=== PATIENT | female | born 1945 | race Caucasian/White ===

== ENCOUNTER 2023-09-10 17:20 | Inpatient (IN) | payer MEDICARE, OTHER, SELFPAY ==
[2023-09-10] VITALS (12 sets, daily range): BP systolic 119–168; BP diastolic 62–95; BMI 28.9; BMI 28.6
[2023-09-10 14:49] LABS: % Basophils 0.4 % (0-2); % Eosinophils 0.4 % (0-6); % Immature Granulocytes 0.3 % (0-0.5); % Lymphocytes 17.1 % (20.5-51.1); % Monocytes 4.8 % (1.7-9.3); Absolute Lymphocytes 1.3 10^3/uL (1.2-3.4); Absolute Monocytes 0.4 10^3/uL (0.1-0.6); Hematocrit 35.8 % (37.0-47.0); Hemoglobin 11.3 g/dL (12.0-16.0); Mean Corp Hgb Conc. 31.6 g/dL (33.0-37.0); Mean Corpuscular Volume 63.5 fL (81.0-99.0); Mean Platelet Volume 10.8 fL (7.4-10.4); Nucleated Red Blood Cells % 0 %; Platelet Count 260 10^3/uL (130-400); Red Blood Cell Count 5.64 10^6/uL (4.20-5.40); Red Cell Dist. Width 17.4 % (11.5-14.5); White Blood Cell Count 7.7 10^3/uL (4.8-10.8)
--- NOTE | 2023-09-10 14:51 | ED.GENMED ---
History of Present Illness
General
Chief Complaint: Cardiac Symptoms
Source: patient
Exam Limitations: none
Time Seen by Provider: 09/10/23 14:26
Travel History
Have you had any contact with someone who has COVID-19?: No
Do you have any symptoms of coronavirus? Fever > 100 degrees, chills, cough, shortness of breath, sore throat, loss of taste or smell, muscle aches, or headache?: No
History of Present Illness
History of Present Illness:
78-year-old female seen by her cardiac group this morning. Echocardiogram was done apparently for history of atrial fibrillation. Ultrasound showed a intracardiac tumor patient was sent to the ER for admission and further care. Patient has no
complaints
Past History
Past History
ED Past Medical History: HTN and Hypercholesterolemia
ED Past Surgical History: None
Social History
Tobacco: Non-smoker
Personal:
Living: with family
Review of Systems
Review of Systems
All Other Systems: Not applicable
Respiratory: Reports no symptoms
Cardiac: Reports no symptoms
Phy Exam
Physical Exam
Physical Exam:
GENERAL: Alert and oriented in no apparent distress
EYE: Orbits normal.
NECK: Supple, no significant adenopathy.
ENT: Pharynx without erythema
CARDIAC: Regular rate and rhythm without any obvious murmurs.
LUNGS: Clear breath sounds,normal
ABDOMEN: Soft, without focal tenderness or distention
NEUROLOGICAL: Alert and oriented , grossly non-focal
SKIN: Warm and dry, no rash or lesion, no discoloration, skin intact.
MUSCULOSKELETAL: No edema,no deformity.Good color
PSYCH: Normal and appropriate interaction.
Course
Orders/Labs/Results
Orders:
Orders
09/10/23 14:37
IV Insert/Care/Rem.- Treatment PRN
09/10/23 14:38
Electrocardiogram (*1) Stat
Reason for Study: Other
Other Reason for Exam: chest pain
Cardiac Monitoring- Treatment ONCE
EKG- Treatment ONCE
09/10/23 14:41
Basic Metabolic Panel Urgent
Complete Blood Count/With Diff Urgent
Glycohemoglobin (HgbA1c) Urgent
Prothrombin Time Urgent
Total Bilirubin Urgent
Comment: A1C & TOTAL BILI ADDED ON BY FLOOR 4:30PM 09-10-23
09/10/23 15:48
Cardiothoracic Surgery Consult Routine
Consulting Provider: Juan Francisco Kaufman
Was physician already notified: Yes
Reason for Consult: intracardiac tumor
09/10/23 15:49
CARDIOLOGY CONSULT Routine
Consulting Provider: Jared Seay
Was physician already notified: Yes
Reason for consult: intracardiac tumor
09/10/23 16:02
Heparin Protocol- PTT Orders As Directed
PTT per Heparin protocol: -Obtain CBC and baseline PTT - if not already collected.
-Obtain PTT 6 hours from start of infusion. Then, every 6 hours until 2 consecutive
PTT's are therapeutic. Then, PTT Daily.
-With each rate change, obtain PTT every 6 hours until 2 consecutive PTT's are
therapeutic. Then, PTT Daily.
Notify MD As Directed
Notify physician if: PTT is greater than or equal to 200.
09/10/23 16:11
PTT Urgent
Comment: Obtain baseline before beginning heparin infusion if not already collected
Heparin Protocol- PTT Orders As Directed
PTT per Heparin protocol: -Obtain CBC and baseline PTT - if not already collected.
-Obtain PTT 6 hours from start of infusion. Then, every 6 hours until 2 consecutive
PTT's are therapeutic. Then, PTT Daily.
-With each rate change, obtain PTT every 6 hours until 2 consecutive PTT's are
therapeutic. Then, PTT Daily.
Notify MD As Directed
Notify physician if: PTT is greater than or equal to 200.
09/10/23 16:16
Heparin 4,000 units IV NOW STA
09/10/23 16:18
Admit/Transfer Patient As Directed
Co-Sign Provider:
Level of Care: Inpatient admission
Assign to:: IVU
Physician / Group: Naomie
Diagnosis: intracardiac tumor
Reason for Hospitalization: Essential hypertension
Hyperlipidemia
Expected length of stay greater than two midnights?: Yes
ELOS- Estimated Length of Stay in days: 6
I certify the patient meets the requirements for IP care: Yes
Complete Blood Count/No Diff Urgent
Comment: Obtain baseline before beginning heparin infusion if not already collected
PTT Urgent
Comment: Obtain baseline before beginning heparin infusion if not already collected
09/10/23 16:19
Code Status As Directed
Resuscitation Status: Full Code
09/10/23 16:30
Heparin 14855 Units/250 ml 25,000 units in 250 ml IV PER PROTOCOL
Weight to be used for heparin protocol in kilograms (kg):: 76.204
Protocol:: Cardiac Tx/Acute Coronary
PTT Goal Range to be used:: PTT 73 to 111 seconds
Order type:: Initial
INITIAL Infusion Dose (UNITS/KG/hr) & then follow protocol:: 12 units/kg/hr
Infusion Dose in UNITS/hr & then follow protocol (UNITS/hr):: 900
INFUSION RATE in mL/hr & then follow protocol (mL/hr):: 9
PTT less than or equal to 64 seconds:: Increase rate by 200 units/hr (+ 2 mL/hr)
PTT 64.1 to 72.9 seconds:: Increase rate by 100 units/hr (+ 1 mL/hr)
PTT 73 to 111 seconds:: Target Range. No change in rate.
PTT 111.1 to 130.9 seconds:: Decrease rate by 100 units/hr (- 1 mL/hr)
PTT 131 to 199.9 seconds:: HOLD for 1 hr. Then decrease rate by 200 units/hr (- 2 mL/hr)
PTT greater than or equal to 200 seconds:: HOLD for 2 hrs & Notify Provider. Then decrease by 200 units/hr (-
2 mL/hr)
Lab follow-up:: Each change, PTT q6h until 2 consecutive are therapeutic. Then PTT
daily.
09/10/23 16:36
Add On- LAB Urgent
Tests Added?: total bilirubin
09/10/23 16:37
Add On- LAB Urgent
Tests Added?: A1C
09/10/23 17:08
Blood Pressure Bilateral Upper Extremities As Directed
Instructions:: If not already done obtain and record bilateral upper extremity bp.
Notify physician/PA/CHEMICAL PUMPER:: notify cardiac surgery PA, CHEMICAL PUMPER, or MD of a 20 mmHg or greater different.
Blood Pressure LEFT Upper Extremity ONCE
Blood Pressure RIGHT Upper Extremity ONCE
Rx Incentive Spirometry [RESP] Routine
Frequency: q1h while awake
Comment: instruction and assessment for postop 10 times x q1hr
US Cerebrovascular Routine
Comment:
Reason For Exam: pre-operative cardiothoracic surgery
09/10/23 17:09
PX Panelipse Routine
Comment:
Reason For Exam: preop cardiac surgery
Pft Spirometry At Bedside [RESP] Routine
Special Instructions: pre-operative cardiothoracic surgery
09/10/23 19:16
Bisacodyl [Dulcolax] 10 mg RECTAL [id number] PRN
Dextrose 5%/0.45%Sodchl 1000ML [D5/0.45%NaCl] 1,000 ml IV 75 mls/hr
Docusate W/Senna [Senokot-S] 1 tablet PO BIDPRN PRN
Polyethylene Glycol Powder [Miralax] 17 grams PO DAILYPRN PRN
09/10/23 19:16
Activity As Directed
Activity Level: With Assistance
Vital Signs As Directed
Frequency: Per unit guidelines
09/10/23 20:00
Vit C/Vit E/[place]in/Min/[place]-3 [Ocuvite Softgel] 1 cap PO BID
09/10/23 22:00
Atorvastatin [Lipitor] 20 mg PO HS
09/10/23 22:30
PTT Urgent
09/11/23 Breakfast
NPO
Allow oral meds: Yes
Allow clear liquids: No
Basic Metabolic Panel IN AM
Complete Blood Count/No Diff IN AM
09/11/23 08:00
Cholecalciferol (Vitamin D3) [VITAMIN D3 (cholecalciferol)] 25 mcg PO DAILY
09/12/23 06:00
Complete Blood Count/No Diff Q2D
Comment: Notify MD if platelet count is <130,000 or decreases by 50% from baseline
09/14/23 06:00
Complete Blood Count/No Diff Q2D
Comment: Notify MD if platelet count is <130,000 or decreases by 50% from baseline
09/16/23 06:00
Complete Blood Count/No Diff Q2D
Comment: Notify MD if platelet count is <130,000 or decreases by 50% from baseline
09/18/23 06:00
Complete Blood Count/No Diff Q2D
Comment: Notify MD if platelet count is <130,000 or decreases by 50% from baseline
09/20/23 06:00
Complete Blood Count/No Diff Q2D
Comment: Notify MD if platelet count is <130,000 or decreases by 50% from baseline
09/22/23 06:00
Complete Blood Count/No Diff Q2D
Comment: Notify MD if platelet count is <130,000 or decreases by 50% from baseline
09/24/23 06:00
Complete Blood Count/No Diff Q2D
Comment: Notify MD if platelet count is <130,000 or decreases by 50% from baseline
09/26/23 06:00
Complete Blood Count/No Diff Q2D
Comment: Notify MD if platelet count is <130,000 or decreases by 50% from baseline
Abnormal Lab Results
09/10/23 09/10/23
14:41 16:18
RBC 5.64 H 10^6/uL
(4.20-5.40)
Hgb 11.3 L g/dL 10.7 L g/dL
(12.0-16.0) (12.0-16.0)
Hct 35.8 L % 33.3 L %
(37.0-47.0) (37.0-47.0)
MCV 63.5 L fL 62.4 L fL
(81.0-99.0) (81.0-99.0)
MCH 20.0 L pg 20.0 L pg
(27.0-31.0) (27.0-31.0)
MCHC 31.6 L g/dL 32.1 L g/dL
(33.0-37.0) (33.0-37.0)
RDW 17.4 H % 16.7 H %
(11.5-14.5) (11.5-14.5)
MPV 10.8 H fL 10.5 H fL
(7.4-10.4) (7.4-10.4)
Neutrophils % 77.0 H %
(42.2-75.2)
Lymphocytes % 17.1 L %
(20.5-51.1)
BUN 19 H mg/dl
(7-17)
Glucose 119 H mg/dl
(70-99)
09/10/23 16:18
09/10/23 14:41
Vital Signs
Initial and Last Documented VS:
Initial Vital Signs
Temp Pulse Resp BP Pulse Ox
99.0 F 78 18 168/95 96
09/10/23 12:11 09/10/23 12:11 09/10/23 12:11 09/10/23 12:11 09/10/23 12:11
Last Documented Vital Signs
Temp Pulse Resp BP Pulse Ox
98.5 F 99 18 129/79 95
09/10/23 14:43 09/10/23 18:24 09/10/23 18:24 09/10/23 18:00 09/10/23 18:24
*Pulse Oximetry
Patient hypoxic: no
*EKG
Interpreted by ED Provider?: Yes
Interpretation: normal
Comparison EKG: no changes
Heart Rate: 78
Rate: normal
Rhythm: sinus
[place]: normal axis
Interval: normal interval
QRS Pattern: normal QRS
Ischemia: no ischemia
*Galvanometer Assembler Interpretation
Rate: normal
Interpretation: normal
Heart Rate: 80
Rhythm: sinus
*Critical Care Note
Total Time (30-74mins, 75-104mins- exclusive of procedures): Not Applicable
Data Reviewed
Review of Other/Old Records Reveals: Labs and Testing
Update Note
Update Note:
Discussed with cardiology. Patient will be admitted for further evaluation and care
ED Attending Note
-
Portions of this chart may have been created with voice recognition software.� Occasional wrong word or��sound alike� substitutions may have occurred due to the inherent limitations of voice recognition software.
Discharge Plan
Departure
Patient Disposition: Admit
Date of Disposition: 09/10/23
Time of Disposition: 14:53
Presentation/result/management discussed w/ accepting MD/DO: Cardiology
Discharge Problem:
Atrial myxoma
Interventions
Interventions:
*Risk Screen - Suicide Last Done: 09/10/23 14:43
*General Assessment Last Done: 09/10/23 14:43
*Neglect/Abuse Screening Last Done: 09/10/23 14:43
ED- Fall Risk Assessment Last Done: 09/10/23 14:43
*ED COVID-19 Vaccine History Last Done: 09/10/23 14:43
ED- Pulmonary Assessment Last Done: 09/10/23 14:43
ED- Cardiac Assessment Last Done: 09/10/23 14:43
[2023-09-10 15:04] LABS: INR 1.12; PT 14.2 Sec (11.4-14.6)
[2023-09-10 15:32] LABS: Blood Urea Nitrogen 19 mg/dl (7-17); Calcium 9.8 mg/dl (8.4-10.2); Carbon Dioxide 29 mmol/L (22-30); Chloride 101 mmol/L (98-107); Estimated Creatinine Clearance 64 ml/min; Glucose 119 mg/dl (70-99); Potassium 4.2 mmol/L (3.5-5.1); Sodium 138 mmol/L (135-145); eGFR > 60.00
--- NOTE | 2023-09-10 15:40 | CON.CAR ---
Addendum entered and electronically signed by Jared Seay MD 09/10/23 17:11:
I saw and examined the patient.
The FURS SALESPERSON or PA's note was reviewed and I agree with the note.
Comment: General: Well developed, well nourished in NAD.
Neck: Supple, no JVD, HJR, carotids +2 B/L, no bruits bilaterally.
Heart: Non displaced PMI, RRR, no murmurs, No S3, S4, no rubs.
Lungs: Clear to auscultation bilaterally, no wheeze, rhonchi, rubs bilaterally,
normal expiratory phase.
Abdomen: Normal bowel sounds, soft, non-tender, non-distended.
Extremities: No clubbing, cyanosis or edema bilaterally.
Neuro: Grossly nonfocal, awake, alert and oriented x3.
Astrid has a history of hypertension, hyperlipidemia, atrial tachycardia. She initially had influenza in April 2023 with cough and shortness of breath. She had SVT was converted to sinus rhythm. Outpatient echocardiogram on 09/10/2023
revealed a 4.0 x 4.5 cm left atrial mass consistent with myxoma. She was sent to the ER. She has a dyspnea on exertion with climbing stairs.
She will be admitted and started on IV heparin. CT surgery evaluation for likely myxoma resection. Will likely need cardiac catheterization prior to surgery and we will tentatively plan for 5/29 am
Original Note:
Consultation
Consultation Request
Date/Time Consultation Requested: 09/10/2023
Date/Time Consultation Performed: 09/10/2023
Requesting Provider: Dr. Manjarrez
Performing Provider: Angie Ugalde PA-C for Dr. Jared Seay
Reason for Consultation: Left atrial myxoma/cardiac mass
Medical History
-
History of Present Illness:
Patient is an 78-year-old female with past medical history significant for hypertension, hyperlipidemia,SVT/atrial tachycardia, lumbar disc disease, macular degeneration who presents to emergency department 09/10/2023 after she was found to have left
atrial appendage mass on outpatient echocardiogram 09/10/2023. Patient was initially seen in ED in April 2023 with cough, shortness of breath and was positive for influenza. She was noted to have SVT on EKG and spontaneously converted to sinus
rhythm. She was seen by outpatient cardiology in July 2023 and were a monitor which was completed 08/13/2023 which showed predominantly normal sinus rhythm with episodes of atrial tachycardia longest 2.8 minutes as well as occasional PACs
approximately 4% and rare PVCs. 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 Given these findings she was referred to emergency department for
evaluation. Patient reports she has dyspnea on exertion with activities such as walking up stairs. She denies having palpitations fast or irregular heartbeats, chest pain, shortness of breath at rest, orthopnea, PND, edema.
Past medical history:
Hypertension
Hyperlipidemia
Atrial tachycardia
PACs
Macular degeneration
Lumbar disc disease
Past Medical History
Past Medical History: Other (See HPI)
Past Surgical History: Other (Cataract extractions, hernia repair)
Social History
Tobacco: Non-Smoker
Alcohol: Occasional (2 rare)
Drug: None
Personal:
Living: With Family (Daughter and son-in-law)
Employment: Retired
Family History
Family History: Cancer (Mother liver cancer)
Allergies / Home Medications
Allergy/AdvReac Type Severity Reaction Status Date / Time
cephalexin monohydrate Allergy Unknown Unknown Verified 09/10/23 12:12
[From Keflex]
Sulfa (Sulfonamide Allergy Unknown Unknown Verified 09/10/23 12:12
Antibiotics)
�Medication �Instructions �Recorded �Confirmed �Type
bisoprolol 2.5 1 tab PO DAILY 09/10/23 09/10/23 History
mg-hydrochlorothiazide 6.25 mg
tablet
cholecalciferol (vitamin D3) 25 25 mcg PO DAILY 09/10/23 09/10/23 History
mcg (1,000 unit) tablet (Vitamin
D3)
simvastatin 40 mg tablet (Zocor) 40 mg PO HS 09/10/23 09/10/23 History
vitamins A,C,I-vhne-gkjued 2,148 1 tab PO BID 09/10/23 09/10/23 History
mcg-113 mg-45 mg-17.4 mg tablet
(PreserVision AREDS)
Review of Systems
-
History Source: Patient
All other systems: Negative unless noted
Physical Exam
Vital Signs
Temp Pulse Resp BP Pulse Ox
98.5 F 70 17 135/74 97
09/10/23 14:43 09/10/23 15:00 09/10/23 15:00 09/10/23 15:00 09/10/23 14:45
GEN: No distress, awake, Ox3
HEENT: supple, anicteric, mmm
LUNGS: CTA, no wheezes/rales
CV: Reg, S1/S2, no murmur, rub or gallop
ABD: soft, BS+, NT/ND
EXT: No edema, clubbing or cyanosis
NEURO: Gross non-focal
SKIN: No rash, warm, dry, pink
Lab Results
09/10/23 14:41
09/10/23 14:41
Impression / Plan
-
PCP: Virginia Barajas
Seamer: Dr. Sevilla
Impression:
Presents 09/10/2023 with new finding of left atrial mass
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
Hypertension
Hyperlipidemia
Atrial tachycardia
PACs
Macular degeneration
Lumbar disc disease
Echo 09/10/2023: EF 60% with mild concentric LVH. 4.0 x 4.5 cm left atrial mass most consistent with myxoma
Outpatient rn cardiac rehab completed 08/13/2023: Predominantly sinus rhythm. 1162 episodes of atrial tachycardia, longest 2.8 minutes. Junctional escape beats, PAC ~4%, PVC 0.3%.
Plan:
-Presents 09/10/2023 with finding of left atrial mass consistent with myxoma on echocardiogram
-Start IV heparin drip to reduce risk of embolic event
-CT surgery consultation for surgical removal
-Will need left heart catheterization, keep NPO after midnight for cath 09/11/23
-Consider imaging of chest/abd/pelvis
-History of hypertension continue Bisoprolol/HCTZ
-Hyperlipidemia: continue statin
-Check TSH w/ reflex T4
Plan was discussed with patient and her daughter, Daisy who is at bedside
HPI 09/10/2023:
Patient is an 78-year-old female with past medical history significant for hypertension, hyperlipidemia,SVT/atrial tachycardia, lumbar disc disease, macular degeneration who presents to emergency department 09/10/2023 after she was found to have left
atrial appendage mass on outpatient echocardiogram 09/10/2023. Patient was initially seen in ED in April 2023 with cough, shortness of breath and was positive for influenza. She was noted to have SVT on EKG and spontaneously converted to sinus
rhythm. She was seen by outpatient cardiology in July 2023 and were a monitor which was completed 08/13/2023 which showed predominantly normal sinus rhythm with episodes of atrial tachycardia longest 2.8 minutes as well as occasional PACs
approximately 4% and rare PVCs. 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 Given these findings she was referred to emergency department for
evaluation. Patient reports she has dyspnea on exertion with activities such as walking up stairs. She denies having palpitations fast or irregular heartbeats, chest pain, shortness of breath at rest, orthopnea, PND, edema.
Data Reviewed
-
EKG: Report Reviewed by me, Discussed with Physician, Discussed with Patient and Discussed with Family
Medical Tests (Nuc Med, Echo etc): Report Reviewed by me, Discussed with Physician, Discussed with Patient and Discussed with Family
Labs: Discussed with Physician
--- NOTE | 2023-09-10 15:51 | HPS.HSE ---
Family Physician
-
Family Physician: Virginia Barajas
Chief Complaint
-
Intracardiac tumor
History of Present Illness
78 y/o F with PMHx:
Essential hypertension
Hyperlipidemia
who presents from [facility] office for admission for intracardiac tumor. The patient had flu over the winter. At that time it was thought that she might of had atrial fibrillation. She recently had an event monitor showing atrial tachycardia. She was
seen in the outpatient setting today ([facility] office) and had a bedside echocardiogram showing an intracardiac tumor. She was sent to the ER for admission for heparin drip and CT surgery evaluation. She is patient has no acute complaints. Denies
chest pain, shortness of breath palpitations, nausea, vomiting, diarrhea, abdominal pain, headache, visual symptoms, neck stiffness, rash, dysuria, focal neurological deficit.
Medical History
Past Medical History
Past Medical History: Reports Other (as per HPI)
Past Surgical History: Reports Other (N/A)
Social History
Tobacco: Non-smoker
Alcohol: None
Drug: None
Family History
Family History: Not pertinent
Allergies / Home Medications
Allergies reflects when Allergies were last updated in [facility].
Home Medications with original date entered in [facility]
Allergy/Medication List:
Allergies
Allergy/AdvReac Type Severity Reaction Status Date / Time
cephalexin monohydrate Allergy Unknown Unknown Verified 09/10/23 12:12
[From Keflex]
Sulfa (Sulfonamide Allergy Unknown Unknown Verified 09/10/23 12:12
Antibiotics)
Home Medications
bisoprolol 2.5 mg-hydrochlorothiazide 6.25 mg tablet 1 tab PO DAILY 09/10/23
cholecalciferol (vitamin D3) 25 mcg (1,000 unit) tablet (Vitamin D3) 25 mcg PO DAILY 09/10/23
simvastatin 40 mg tablet (Zocor) 40 mg PO HS 09/10/23
vitamins A,C,X-vlgz-vuzbkb 2,148 mcg-113 mg-45 mg-17.4 mg tablet (PreserVision AREDS) 1 tab PO BID 09/10/23
Review of Systems
-
History Source: Patient
A 12 point ROS was completed and negative except as noted: Yes
Physical Exam
Vital Signs
Vital Signs
Temp Pulse Resp BP Pulse Ox
98.5 F 70 17 135/74 97
09/10/23 14:43 09/10/23 15:00 09/10/23 15:00 09/10/23 15:00 09/10/23 14:45
Physical Exam
General: Other (.)
Laboratory Results
-
09/10/23 14:41
09/10/23 14:41
Laboratory Results
PT 14.2 Sec (11.4-14.6) 09/10/23 14:41
INR 1.12 09/10/23 14:41
Impression/Plan
-
Gen: NAD, AAOx3.
Eyes: EOMI, PERRLA, no scleral icterus.
Neck: supple.
CV: RRR, +S1/S2, no m/r/g.
Resp: CTAB, no rales, wheezes, or rhonchi.
Abd: +BS, soft, NT, ND
Skin: No rashes.
Neuro: CN 2-12 intact, non-focal.
Psych: Normal mood and affect.
ECG (read by me): NSR @ 78, nl axis, normal MA/QRS intervals, QTc slightly prolonged at 453ms, no acute ST/TW changes
Intracardiac tumor:
-pt sent from [facility] cards for admission
-heparin gtt
-echo
-cards to see
-CT surgery eval
Other problems:
Essential hypertension: Cont Bisoprolol/HCTZ
Hyperlipidemia: cont statin
FULL/heparin gtt
[2023-09-10] MEDS: HEPARIN 4000 UNITS IV (16:27)
[2023-09-10 16:29] LABS: Hematocrit 33.3 % (37.0-47.0); Hemoglobin 10.7 g/dL (12.0-16.0); Mean Corp Hgb Conc. 32.1 g/dL (33.0-37.0); Mean Corpuscular Volume 62.4 fL (81.0-99.0); Mean Platelet Volume 10.5 fL (7.4-10.4); Platelet Count 244 10^3/uL (130-400); Red Blood Cell Count 5.34 10^6/uL (4.20-5.40); Red Cell Dist. Width 16.7 % (11.5-14.5); White Blood Cell Count 7.5 10^3/uL (4.8-10.8)
[2023-09-10] MEDS: HEPARIN 25000 UNITS/250 ML IV (16:30)
[2023-09-10 16:39] LABS: APTT 32.5 Sec (23.4-35.0)
--- NOTE | 2023-09-10 16:43 | CONSULT.CT ---
Consultation
-
Date/Time Consultation Requested: 09/10/2023
Date/Time Consultation Performed: 09/10/2023
Requesting Provider: Dr. Casey Burgos
Performing Provider: Lara george
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
Patient History
Physicians
Family Physician: Dr. Virginia Barajas
Outpatient Nail Setter: Dr. Sevilla
Inpatient Nail Setter: Dr. Seay
History of Present Illness
Patient is a 78-year-old female with past medical history significant for hypertension, hyperlipidemia, SVT/atrial tachycardia, lumbar disc disease, macular degeneration who presents to the emergency department on 09/10/2023 after she was found to
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
Patient was initially seen in the ED in April 2023 with cough, shortness of breath and was positive for influenza. On telemetry she was noted to have SVT on EKG and spontaneously converted to sinus rhythm. She was seen by outpatient cardiology
in July 2023 and a Holter monitor was placed which was completed on 08/13/2023. This showed predominantly normal sinus rhythm with episodes of atrial tachycardia. Holter monitor also showed occasional PACs and rare PVCs. She underwent outpatient
echo today 09/10/2023 and was noted to have a 4.0 x 4.5 cm left atrial mass most consistent with left atrial myxoma. Given these findings she was referred to the emergency department for evaluation.
Patient reports she has a shortness of breath on exertion with activity such as walking upstairs. She denies any palpitations fast or irregular heartbeats, chest pain, shortness of breath at rest, orthopnea, PND or lower extremity edema.
Past Medical History
Past Medical History: Atrial Fib, BARRON, HTN, Hypercholesterolemia and SOB
Past medical history significant for hypertension
Hyperlipidemia
Atrial tachycardia/SVT
PACs/PVCs
Wet age-related macular degeneration
Lumbar disc disease
Osteoarthritis
Past Surgical History
Past surgical history: Hernia surgery, bilateral cataracts
Dental History
Has routine yearly cleaning, no dental issues currently
Family History
Mother: at Age (Mother at age 63 from cancer)
Father: at Age (Father at age 88 'natural causes')
Family Medical History: Cancer and Hypertension
Social History
Alcohol: None
Drug: None
Tobacco: Non-Smoker
Personal: ( of a heart attack in his late 50s)
Living: With Family (Lives with daughter and son-in-law)
Employment: Retired
Covid Vaccination History:
Denies history of COVID infection
Admits to COVID vaccine plus booster
Allergies
Allergy/AdvReac Type Severity Reaction Status Date / Time
cephalexin monohydrate Allergy Unknown Unknown Verified 09/10/23 12:12
[From Keflex]
Sulfa (Sulfonamide Allergy Unknown Unknown Verified 09/10/23 12:12
Antibiotics)
Home Medications
�Medication �Instructions �Recorded �Confirmed �Type
bisoprolol 2.5 1 tab PO DAILY 09/10/23 09/10/23 History
mg-hydrochlorothiazide 6.25 mg
tablet
cholecalciferol (vitamin D3) 25 25 mcg PO DAILY 09/10/23 09/10/23 History
mcg (1,000 unit) tablet (Vitamin
D3)
simvastatin 40 mg tablet (Zocor) 40 mg PO HS 09/10/23 09/10/23 History
vitamins A,C,P-lodi-dryxqe 2,148 1 tab PO BID 09/10/23 09/10/23 History
mcg-113 mg-45 mg-17.4 mg tablet
(PreserVision AREDS)
Review of Systems
-
History Source: Patient and Family
General: Reports Fatigue
HEENT: Reports Visual Changes
Respiratory: Reports SOB and BARRON
Cardiac: Reports No Symptoms
Abdomen/GI: Reports No Symptoms
: Reports No Symptoms
Musculoskeletal: Reports Arthralgias and Joint Pain
Skin: Reports No Symptoms
Neurological: Reports No Symptoms
Vascular: Reports Other (Occasional cramps in calfs after sitting, denies calf pain with ambulation)
Physical Exam
Vital Signs
Temp 98.5 F 09/10/23 14:43
Temp route: Oral 09/10/23 14:43
Pulse 76 09/10/23 16:30
Resp Rate 21 09/10/23 16:30
Blood pressure 137/74 09/10/23 16:00
Blood pressure extremity used: Right upper arm 09/10/23 14:43
Position: Lying 09/10/23 14:43
MAP (cuff-Kirill Monitor) 93 09/10/23 16:00
MAP 98 09/10/23 14:43
SaO2 94 09/10/23 16:15
Oxygen Mode of Delivery Room air 09/10/23 14:43
Actual Weight 168 lb 09/10/23 14:43
Body Mass Index (BMI) 28.9 09/10/23 14:43
Labs
09/10/23 16:18
09/10/23 14:41
PT 14.2 Sec (11.4-14.6) 09/10/23 14:41
APTT 32.5 Sec (23.4-35.0) 09/10/23 16:18
Exam
General: Well Developed, Well Nourished, No Apparent Distress and Comfortable
HEENT: Normocephalic, Anicteric and Atraumatic
Neck: Trachea Midline
Respiratory: Clear
Cardiac: Regular Rhythm
GI: Soft, Non Tender, Non Distended and Normal Bowel Sounds
Rectal: Deferred by Provider
Skin: Warm and Dry
Neuro: Awake, Alert, Oriented and AO x 3
Extremities: Pulses (Distal pulses intact bilaterally, posterior tibial pulses +2 bilaterally, right dorsalis pedis pulse +1, left dorsalis pedis pulse +2, toes on right foot cool versus left, no calf tenderness bilaterally)
Lymph: No Lymphadenopathy
Psych: Calm
Assessment / Plan
-
Assessment:
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
History of SVT/atrial tachycardia
Hypertension
Hyperlipidemia
Lumbar disc disease
Wet age-related macular degeneration
Alopecia Areata
Varicose veins
Microcytic anemia
Plan:
All studies to be reviewed by attending cardiothoracic surgeon and surgical plan and timing will be discussed with patient and family
Cardiac catheterization scheduled for tomorrow
Preoperative diagnostic studies ordered
Continue IV heparin
CAT scan of chest abdomen pelvis
[2023-09-10] MEDS: D5/0.45%NACL 1000 IV (20:48)
[2023-09-10] MEDS: OCUVITE SOFTGEL 1 CAP PO (20:49)
[2023-09-10] MEDS: LIPITOR 20 MG PO (20:51)
--- NOTE | 2023-09-10 21:30 | PTCARENOTE ---
Received pt from ED. Oriented pt to unit. AOx3. Tele- SR. Heparin gtt infusing at 900ml/hr. Pt aware that she is NPO after midnight for cath tomorrow. Daughter at bedside. Currently in bed; call devonte w/in reach.
[2023-09-10 23:12] LABS: APTT 68.3 Sec (23.4-35.0)
[2023-09-11] VITALS (13 sets, daily range): BP systolic 104–148; BP diastolic 69–83
[2023-09-11 05:45] LABS: Hematocrit 32.2 % (37.0-47.0); Hemoglobin 10.5 g/dL (12.0-16.0); Mean Corp Hgb Conc. 32.6 g/dL (33.0-37.0); Mean Corpuscular Hgb 20.3 pg (27.0-31.0); Mean Corpuscular Volume 62.4 fL (81.0-99.0); Mean Platelet Volume 10.7 fL (7.4-10.4); Platelet Count 232 10^3/uL (130-400); Red Blood Cell Count 5.16 10^6/uL (4.20-5.40); Red Cell Dist. Width 16.4 % (11.5-14.5); White Blood Cell Count 6.9 10^3/uL (4.8-10.8)
[2023-09-11 05:46] LABS: APTT 56.1 Sec (23.4-35.0)
[2023-09-11 05:54] LABS: Blood Urea Nitrogen 16 mg/dl (7-17); Calcium 9.3 mg/dl (8.4-10.2); Carbon Dioxide 28 mmol/L (22-30); Chloride 103 mmol/L (98-107); Estimated Creatinine Clearance 74 ml/min; Glucose 116 mg/dl (70-99); Potassium 3.8 mmol/L (3.5-5.1); Sodium 138 mmol/L (135-145); eGFR > 60.00
--- NOTE | 2023-09-11 08:15 | W.PN.HOSP.TC ---
Today's Communication/Plan
-
see bold
Assessment / Plan
Assessment / Plan
Gen: NAD, AAOx3.
Eyes: EOMI, PERRLA, no scleral icterus.
Neck: supple.
CV: RRR, +S1/S2, no m/r/g.
Resp: CTAB, no rales, wheezes, or rhonchi.
Abd: +BS, soft, NT, ND
Skin: No rashes.
Neuro: CN 2-12 intact, non-focal.
Psych: Normal mood and affect.
ECG (read by me): NSR @ 78, nl axis, normal RI/QRS intervals, QTc slightly prolonged at 453ms, no acute ST/TW changes
Echo:
1. 4.0 x 4.5 cm left atrial mass, most consistent with myxoma. No clear-cut evidence of mitral annular obstruction.
2. Mild left ventricular hypertrophy with preserved systolic function, EF 60%
3. Mildly thickened mitral valve with trace mitral regurgitation, increased A wave velocity
4. Mildly sclerotic aortic valve with trace aortic regurgitation
5. Normal right heart with normal pulmonary artery pressure
Intracardiac tumor:
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
-echo above
-cont heparin gtt
-cards/CT surgery following
-cath today
Other problems:
Essential hypertension: Cont Bisoprolol/HCTZ
Hyperlipidemia: cont statin
FULL/heparin gtt
Anticipated Discharge: > 48 hours
Subjective/Interval History
-
Date of Service: September 11, 2023
Denies CP/SOB.
Objective Data
-
Labs:
Laboratory Results
09/10/23 09/10/23 09/11/23
16:11 22:49 05:16
WBC 6.9
Hgb 10.5 L
Hct 32.2 L
Plt Count 232
APTT Cancelled 68.3 H 56.1 H
Sodium 138
Potassium 3.8
Chloride 103
Carbon Dioxide 28
BUN 16
Creatinine 0.6
Glucose 116 H
Calcium 9.3
09/11/23
12:00
WBC
Hgb
Hct
Plt Count
APTT Pending
Sodium
Potassium
Chloride
Carbon Dioxide
BUN
Creatinine
Glucose
Calcium
Vital Signs:
Vital Signs
Temp Pulse Resp BP Pulse Ox
98.4 F 86 20 104/81 94
09/11/23 07:24 09/11/23 05:30 09/11/23 07:24 09/11/23 05:10 09/11/23 07:24
I&O
09/10/23 09/11/23 09/12/23
06:59 06:59 06:59
Intake Total 1527 / 1527
Balance 1527 / 1527
[2023-09-11] MEDS: ZEBETA 2.5 MG PO (08:24)
[2023-09-11] MEDS: OCUVITE SOFTGEL 1 CAP PO ×2 (08:24→20:03)
[2023-09-11] MEDS: ORETIC 6.25 MG PO (08:27)
[2023-09-11] MEDS: VITAMIN D3 (cholecalciferol) 25 MCG PO (08:28)
[2023-09-11] MEDS: LOW STRENGTH ASPIRIN 324 MG PO (08:28)
[2023-09-11 09:34] LABS: Glycohemoglobin (HgbA1c) 5.4 % (4.0-5.6)
[2023-09-11 10:36] LABS: ALT (SGPT) 18 U/L (0-35); AST (SGOT) 39 U/L (14-36); Albumin 3.6 g/dl (3.5-5.0); Alkaline Phosphatase 64 U/L (38-126); Direct Bilirubin 0.3 mg/dl (0.0-0.4); Total Bilirubin 1.1 mg/dl (0.2-1.3); Total Protein 6.4 g/dl (6.3-8.2)
--- NOTE | 2023-09-11 10:51 | CM ---
Chart reviewed. I spoke with the patient's daughter. Patient is independent of ADLS, lives with her daughter in a 2 [address], 2 ENID, 0 DME. Patient scheduled for heart surgery 09/12. Plan is for the patient to return home with CT Transitional RN.
CM to follow
[2023-09-11] MEDS: D5/0.45%NACL IV ×2 (10:59→22:10)
[2023-09-11] MEDS: NSS 1000 IV (11:00)
--- NOTE | 2023-09-11 11:18 | ITS.CL.CATH ---
Burning Supervisor - Catheterization
Cardiac Catheterization
Procedure Report:
LEFT HEART CATHETERIZATION
Date of Procedure: September 07, 2023
Referring: Dr. Pilo Sevilla
PROCEDURES:
1. Coronary angiography
INDICATION: Left atrial mass
ACCESS: Right radial artery, 5 Turkmen sheath
HEMODYNAMICS : (mmHg)
AO (s/d) : 137/78
CORONARY FINDINGS
DOMINANCE: Right
LEFT MAIN: Large caliber left main
LEFT ANTERIOR DESCENDING: The LAD arises normally from the left main and runs in the anterior interventricular groove. The LAD originates is a large-caliber vessel that tapers to a medium-small caliber vessel beyond the second diagonal branch. The
distal LAD reaches the LV apex. The first diagonal branch arises proximally from the LAD and is a small caliber bifurcating vessel. The second diagonal branch arises from the mid LAD and is a moderate caliber vessel.
CIRCUMFLEX: The circumflex is small supplying a small obtuse marginal branch
RIGHT CORONARY ARTERY: The right coronary artery is a large-caliber dominant vessel that is widely patent. The PDA is a small to medium caliber vessel that is widely patent. There are well developed collaterals to the left atrial mass
VENTRICULOGRAPHY: Not done
Closure Device: TR band
CONCLUSIONS
1. There is a known left atrial mass with well-developed collaterals arising from the proximal right coronary artery
2. Nonobstructive coronary disease
Copy to: Dr. Pilo Sevilla
[2023-09-11 11:37] LABS: Iron 84 ug/dl (37-170)
[2023-09-11 11:47] LABS: Percent Saturation 37 % (20-50); Total Iron Binding Capacity 226 ug/dl (265-497)
[2023-09-11 12:16] LABS: APTT 166.4 Sec (23.4-35.0)
--- NOTE | 2023-09-11 13:31 | W.PN.UPDATE ---
Update Note
Progress Note Update
I met with Mrs. Hays and her daughter at the bedside. We reviewed her echo findings as well as her [facility] findings. Given the size of the mass and risk for CVA, I offered her surgical intervention in the form of sternotomy, tumor resection,
possible ASD closure, and MIGUEL E. We went over the risks and benefits, she understood and accepted those risks. Her final pathology results will be determined approximately 5-7 days later, but for now, it does appear consistent with a LA myxoma with
some neovascularization of the mass. Will plan to assess this intraoperatively and ligate any obvious feeding vessels. For now, tentatively plan is surgery with me next week (Saturday to follow vs Saturday as first start).
Thank you for involving me in the care of this patient. Please feel free to contact me with any questions or concerns.
Juan Francisco Kaufman MD, MS
Cardiothoracic Surgeon
[facility]
This dictation was created using the [employer] dictation system. Please excuse any grammatical, typographical, or 'sound alike' errors.
--- NOTE | 2023-09-11 13:35 | W.PN.UPDATE ---
Update Note
Progress Note Update
Patient seen with Dr. Kaufman this AM. She will be on the scheduled tentatively for Saturday September 16, 2023 for a myxoma resection and MIGUEL clip. Ongoing surgical work up.
--- NOTE | 2023-09-11 14:21 | CM ---
Preoperative and postoperative instructions and restrictions, along with showering guidelines. Patient is agreeable to a visit by CT Transitional RN. Gave patient Cardiac Surgery Book. Plan is for the patient to return home with CT Transitional
RN.
[2023-09-11] MEDS: HEPARIN 25000 UNITS/250 ML IV (14:33)
--- NOTE | 2023-09-11 16:12 | PTCARENOTE ---
Received pt post cath via stretcher. VSS. Right radial cath site w/ R band intact. Will monitor.
--- NOTE | 2023-09-11 16:25 | CON.ONC ---
Impression
Impression
microcytic anemia secondary to thalassemia. Hgb at baseline ~11
Plan
Plan
4.0 x 4.5 cm left atrial mass consistent with myxoma management per CT surgery
Hematology will sign off, please reach out with any questions or concerns.
Thank you for this consult
Patient History
History of Present Illness
78yo female who presents to ER at the advice of her tubular stock glass bulb machine former due to left atrial appendage mass on outpt echocardiogram 09/10/2023. She initially presented in April 2023 with SOB and cough and was found to have influenza. During April
evaluation she was noted to have SVT and follow with cardiology outpt for further testing and evaluation. She had an outpatient echocardiogram 09/10/2023 that showed a 4.0 x 4.5 cm left atrial mass most consistent with left atrial myxoma for which
she was referred to emergency department for further management evaluation. She has been admitted and started on a heparin gtt. Cardiology and CT surgery have been consulted for further management of intracardiac tumor, likely myxoma. Hematology
consulted for microcytic anemia. Pt tells me that she was born in [place] and prior evaluation for microcytic anemia was diagnostic for thalassemia. She is unsure of what time of thalassemia and I do not have records to confirm this diagnosis. She
denies any overt bleeding, prior GI surgery, blood donation, or use of NSAIDs. She eat a well balanced non-vegan diet. Iron studies show no evidence of iron deficiency with ferritin 162 and IS 37%
Clinically she reports dyspnea on exertion. She denies having palpitations, chest pain, shortness of breath at rest, dizziness, or edema. Denies weight loss, dyspepsia, changes in appetite, or changes in bowel habits. Last colonoscopy <10 years
ago without abnormalities.
Past-Medical/Surgical History
PMH thalassemia, HTN, HLD, SVT, atrial tachycardia, lumbar disc disease, macular degeneration
PSH hernia repair
Social never smoker, denies etoh or recreational drug use. 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 Lives with daughter
Family: mother liver cancer, thalassemia
Patient Medication
�Medication �Instructions �Recorded �Confirmed �Last Taken �Type
bisoprolol 2.5 1 tab PO DAILY 09/10/23 09/10/23 09/10/23 History
mg-hydrochlorothiazide 6.25 mg
tablet
cholecalciferol (vitamin D3) 25 25 mcg PO DAILY 09/10/23 09/10/23 09/10/23 History
mcg (1,000 unit) tablet (Vitamin
D3)
simvastatin 40 mg tablet (Zocor) 40 mg PO HS 09/10/23 09/10/23 09/09/23 History
vitamins A,C,L-jvua-rubpkq 2,148 1 tab PO BID 09/10/23 09/10/23 09/10/23 History
mcg-113 mg-45 mg-17.4 mg tablet
(PreserVision AREDS)
Active Medications
Generic Name Dose Route Start Last Admin
Trade Name Freq PRN Reason Stop Dose Admin
Acetaminophen 650 mg 09/11/23 10:25
Acetaminophen 325 Mg Tablet PO 10/09/23 10:24
Q4HPRN PRN
mild pain
Atorvastatin Calcium 20 mg 09/10/23 22:00 09/10/23 20:51
Atorvastatin (Lipitor) 20 Mg Tablet PO 10/08/23 21:59 20 mg
HS CLAY Administration
Bisacodyl 10 mg 09/10/23 19:16
Bisacodyl 10 Mg Rectal Suppository RECTAL 10/08/23 19:15
[id number] PRN
constipation
Bisoprolol Fumarate 2.5 mg 09/11/23 08:00 09/11/23 08:24
Bisoprolol Fumarate (Zebeta) 5 Mg Tablet PO 10/09/23 07:59 2.5 mg
DAILY CLAY Administration
Cholecalciferol 25 mcg 09/11/23 08:00 09/11/23 08:28
Cholecalciferol (Vitamin D3) 25 Mcg Tablet (1,000 Units) PO 10/09/23 07:59 25 mcg
DAILY CLAY Administration
Hydrochlorothiazide 6.25 mg 09/11/23 08:00 09/11/23 08:27
Hydrochlorothiazide 12.5 Mg Tablet PO 10/09/23 07:59 6.25 mg
DAILY CLAY Administration
Dextrose/Sodium Chloride 1,000 mls @ 75 mls/hr 09/10/23 19:16 09/11/23 10:59
D5/0.45%Nacl IV Not Given
.[id number] CLAY
Sodium Chloride 1,000 mls @ 0 mls/hr 09/11/23 10:30 09/11/23 11:00
Nss IV 09/12/23 10:26 1,000 mls
PER PROTOCOL CLAY Administration
Protocol
Per Protocol
Heparin Sodium 25,000 units in 250 mls @ 0 mls/hr 09/11/23 14:30 09/11/23 14:33
Heparin 11278 Units/250 Ml IV 250 mls
PER PROTOCOL CLAY Administration
Protocol
Per Protocol
Polyethylene Glycol 17 grams 09/10/23 19:16
Polyethylene Glycol Powder 17 Grams Packet PO 10/08/23 19:15
DAILYPRN PRN
constipation
Senna/Docusate Sodium 1 tablet 09/10/23 19:16
Docusate W/Senna (Kelsea-Colace) Tablet PO 10/08/23 19:15
BIDPRN PRN
constipation
Sodium Chloride 0 flush 09/10/23 20:00
Sodium Chloride 0.9% (Flush) Syringe IV 10/08/23 19:59
PER PROTOCOL CLAY
Vitamin C/Vitamin E 1 cap 09/10/23 20:00 09/11/23 08:24
Vit C/Vit E/Lutein/Min/[place]-3 (Ocuvite) Capsule PO 10/08/23 19:59 1 cap
BID CLAY Administration
Review of Systems
-
Review of systems notable for HPI, otherwise negative
Physical Exam
-
General: Well Developed and No Apparent Distress
HEENT: Moist Mucous Membranes; Negative Jaundice
Cardiology: Normal Sinus Rhythm and No Murmur
Pulmonary: Clear
GI: Soft
Musculoskeletal: Normal Gait & Station
Extremities: Negative Edema
Skin: Warm
Psych: Calm
Labs
Lab Results
WBC 6.9 10^3/uL (4.8-10.8) 09/11/23 05:16
RBC 5.16 10^6/uL (4.20-5.40) 09/11/23 05:16
Hgb 10.5 g/dL (12.0-16.0) L 09/11/23 05:16
Hct 32.2 % (37.0-47.0) L 09/11/23 05:16
MCV 62.4 fL (81.0-99.0) L 09/11/23 05:16
MCH 20.3 pg (27.0-31.0) L 09/11/23 05:16
MCHC 32.6 g/dL (33.0-37.0) L 09/11/23 05:16
RDW 16.4 % (11.5-14.5) H 09/11/23 05:16
Plt Count 232 10^3/uL (130-400) 09/11/23 05:16
MPV 10.7 fL (7.4-10.4) H 09/11/23 05:16
Abs Immat Gran (auto) 0.0 10^3/uL (0-0.05) 09/10/23 14:41
Absolute Neuts (auto) 6.0 10^3/uL (1.4-6.5) 09/10/23 14:41
Absolute Lymphs (auto) 1.3 10^3/uL (1.2-3.4) 09/10/23 14:41
Absolute Monos (auto) 0.4 10^3/uL (0.1-0.6) 09/10/23 14:41
Absolute Eos (auto) 0.0 10^3/uL (0-0.7) 09/10/23 14:41
Absolute Basos (auto) 0.0 10^3/uL (0-0.2) 09/10/23 14:41
Immature Gran % 0.3 % (0-0.5) 09/10/23 14:41
Neutrophils % 77.0 % (42.2-75.2) H 09/10/23 14:41
Lymphocytes % 17.1 % (20.5-51.1) L 09/10/23 14:41
Monocytes % 4.8 % (1.7-9.3) 09/10/23 14:41
Eosinophils % 0.4 % (0-6) 09/10/23 14:41
Basophils % 0.4 % (0-2) 09/10/23 14:41
Creatinine 0.6 mg/dL (0.6-1.0) 09/11/23 05:16
Vital Signs
Vital Signs
Temp Pulse Resp BP Pulse Ox
99 F 82 20 122/77 96
09/11/23 15:38 09/11/23 14:45 09/11/23 15:38 09/11/23 14:00 09/11/23 15:38
[2023-09-11 21:16] LABS: APTT 87.1 Sec (23.4-35.0)
[2023-09-11] MEDS: LIPITOR 20 MG PO (22:10)
--- NOTE | 2023-09-11 23:54 | PTCARENOTE ---
Pt AOx3 and pleasant. Tele- SR. Heparin gtt infusing at 1200 units/hr. Pt ambulatory in room; steady gait. R radial site is c/d/i. Offers no c/o at this time. Currently in bed; call devonte w/in reach.
[2023-09-12] VITALS (7 sets, daily range): BP systolic 99–126; BP diastolic 68–83
--- NOTE | 2023-09-12 03:53 | PTCARENOTE ---
Pt w/ atrial tach in the 130s; asymptomatic. Pt breaks in and out from SR in the 80s.
[2023-09-12 04:21] LABS: Hematocrit 33.1 % (37.0-47.0); Hemoglobin 10.6 g/dL (12.0-16.0); Mean Corpuscular Hgb 20.1 pg (27.0-31.0); Mean Corpuscular Volume 62.8 fL (81.0-99.0); Mean Platelet Volume 11.4 fL (7.4-10.4); Platelet Count 223 10^3/uL (130-400); Red Blood Cell Count 5.27 10^6/uL (4.20-5.40); Red Cell Dist. Width 16.3 % (11.5-14.5); White Blood Cell Count 8.4 10^3/uL (4.8-10.8)
[2023-09-12 04:33] LABS: APTT 91.5 Sec (23.4-35.0)
--- NOTE | 2023-09-12 08:33 | PTCARENOTE ---
Rec'd pt this shift awake and alert in bed. Pt NSR on monitor. Heparin infusing at 1200 units/hr. Pt denies BARRON and chest pain. Pt sent for CT scan this am.
--- NOTE | 2023-09-12 08:35 | W.PN.CARDCBS ---
Addendum entered and electronically signed by Brittany Nichols DO 09/12/23 12:22:
I saw and examined the patient.
The Cocktail Lounge Manager's note was reviewed and I agree with the note.
Comment: Patient seen and examined following CT scan awaiting results. Overall feels great and is aware for plans for surgery next week.
GEN: NAD, aaox3
HEENT: mmm
LUNGS: CTA B/L, no wheezes/rales
CV: Reg and tachy, S1/S2, 04/20 SM
EXT: No cyanosis, clubbing, edema
NEURO: Gross non-focal
Plan:
-Presents 09/10/2023 with finding of large left atrial mass consistent with myxoma on echocardiogram
-[facility] 09/10 without significant coronary disease
-Appreciate CT surgery input:plan for myxoma resection and MIGUEL clip Saturday09/16/23
-continue IV heparin to reduce risk of embolic event
-tele reviewed, PAT overnight. continue bisoprolol and increase dose to 5mg for better HR control.
-Await CTA chest results
-Check TSH w/ reflex T4
Original Note:
Today's Communication / Plan
-
plan for myxoma resection 09/16/23
continue IV heparin
increase bisoprolol to 5mg daily
chest CTA today
Impression / Plan
-
PCP: Virginia Barajas
Quality Control Tech Raw Materials: Dr. Sevilla
Impression:
Presents 09/10/2023 with new finding of left atrial mass
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
nonobstructive CAD by cath 09/10
Hypertension
Hyperlipidemia
Atrial tachycardia
PACs
Macular degeneration
Lumbar disc disease
Microcytic anemia -->Thalassemia
Echo 09/10/2023: EF 60% with mild concentric LVH. 4.0 x 4.5 cm left atrial mass most consistent with myxoma
Outpatient air sampling and monitoring completed 08/13/2023: Predominantly sinus rhythm. 1162 episodes of atrial tachycardia, longest 2.8 minutes. Junctional escape beats, PAC ~4%, PVC 0.3%.
Plan:
-Presents 09/10/2023 with finding of large left atrial mass consistent with myxoma on echocardiogram
-cath 09/10 without coronary disease
-planned for myxoma resection and MIGUEL clip Saturday09/16/23
-continue IV heparin to reduce risk of embolic event
-for chest CTA today
-tele reviewed, with some atach overnight. continue bisoprolol, consider increasing dose to 5mg for better HR control. continue HCTZ
-Check TSH w/ reflex T4
-d/w nursing
HPI 09/10/2023:
Patient is an 78-year-old female with past medical history significant for hypertension, hyperlipidemia,SVT/atrial tachycardia, lumbar disc disease, macular degeneration who presents to emergency department 09/10/2023 after she was found to have left
atrial appendage mass on outpatient echocardiogram 09/10/2023. Patient was initially seen in ED in April 2023 with cough, shortness of breath and was positive for influenza. She was noted to have SVT on EKG and spontaneously converted to sinus
rhythm. She was seen by outpatient cardiology in July 2023 and were a monitor which was completed 08/13/2023 which showed predominantly normal sinus rhythm with episodes of atrial tachycardia longest 2.8 minutes as well as occasional PACs
approximately 4% and rare PVCs. 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 Given these findings she was referred to emergency department for
evaluation. Patient reports she has dyspnea on exertion with activities such as walking up stairs. She denies having palpitations fast or irregular heartbeats, chest pain, shortness of breath at rest, orthopnea, PND, edema.
Progress Note - Quality Control Tech Raw Materials
Subjective
Date of Service: September 12, 2023
Denies chest pain, shortness of breath, palpitations overnight
Objective
Labs:
09/12/23 03:27
09/11/23 05:16
Labs
Hgb 10.6 g/dL (12.0-16.0) L 09/12/23 03:27
Hct 33.1 % (37.0-47.0) L 09/12/23 03:27
Plt Count 223 10^3/uL (130-400) 09/12/23 03:27
PT 14.2 Sec (11.4-14.6) 09/10/23 14:41
INR 1.12 09/10/23 14:41
APTT 91.5 Sec (23.4-35.0) H 09/12/23 03:27
Sodium 138 mmol/L (135-145) 09/11/23 05:16
Potassium 3.8 mmol/L (3.5-5.1) 09/11/23 05:16
BUN 16 mg/dl (7-17) 09/11/23 05:16
Creatinine 0.6 mg/dL (0.6-1.0) 09/11/23 05:16
Glucose 116 mg/dl (70-99) H 09/11/23 05:16
Vital Signs and I&O:
Vital Signs
Temp Pulse Resp BP Pulse Ox
98.5 F 102 16 125/83 98
09/12/23 03:28 09/12/23 08:30 09/12/23 03:28 09/12/23 07:53 09/12/23 08:28
Vital Signs
Temp Pulse Resp BP Pulse Ox
98.5 F 102 16 125/83 98
09/12/23 03:28 09/12/23 08:30 09/12/23 03:28 09/12/23 07:53 09/12/23 08:28
Intake & Output
09/10/23 09/11/23 09/12/23 09/13/23
07:59 07:59 07:59 07:59
Intake Total 1527 / 1527 1362 / 1362
Balance 1526 152 1362 / 1362
Physical Exam
Physical Exam
GEN: No distress, awake, alert, oriented x3
HEENT: supple, anicteric, mmm, eomi
LUNGS: CTA B/L, no wheezes/rales
CV: Reg and tachy, S1/S2, no murmur
EXT: No cyanosis, clubbing, edema
NEURO: Gross non-focal
SKIN: Warm, pink, dry. No rash
[2023-09-12] MEDS: ORETIC 6.25 MG PO (09:20)
[2023-09-12] MEDS: HEPARIN 25000 UNITS/250 ML IV (09:21)
[2023-09-12] MEDS: VITAMIN D3 (cholecalciferol) 25 MCG PO (09:21)
--- NOTE | 2023-09-12 09:23 | W.PN.HOSP.TC ---
Today's Communication/Plan
-
see bold
Assessment / Plan
Assessment / Plan
Gen: NAD, AAOx3.
Eyes: EOMI, PERRLA, no scleral icterus.
Neck: supple.
CV: remains RRR, +S1/S2, no m/r/g.
Resp: remains CTAB, no rales, wheezes, or rhonchi.
Abd: remains +BS, soft, NT, ND
Skin: No rashes.
Neuro: CN 2-12 intact, non-focal.
Psych: Normal mood and affect.
ECG (read by me): NSR @ 78, nl axis, normal VT/QRS intervals, QTc slightly prolonged at 453ms, no acute ST/TW changes
Echo:
1. 4.0 x 4.5 cm left atrial mass, most consistent with myxoma. No clear-cut evidence of mitral annular obstruction.
2. Mild left ventricular hypertrophy with preserved systolic function, EF 60%
3. Mildly thickened mitral valve with trace mitral regurgitation, increased A wave velocity
4. Mildly sclerotic aortic valve with trace aortic regurgitation
5. Normal right heart with normal pulmonary artery pressure
LHC 09/11/23:
1. There is a known left atrial mass with well-developed collaterals arising from the proximal right coronary artery
2. Nonobstructive coronary disease
Intracardiac tumor:
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
-echo/LHC above
-cont heparin gtt
-cards/CT surgery following
-for myxoma resection 09/16/23
-check CTA chest
Other problems:
Chronic anemia due to thalassemia (unknown type), Hb stable
Essential hypertension: Cont Bisoprolol (dose increased)/HCTZ
Hyperlipidemia: cont statin
FULL/heparin gtt
Anticipated Discharge: > 48 hours
Subjective/Interval History
-
Date of Service: September 12, 2023
Denies CP/SOB.
Objective Data
-
Labs:
Laboratory Results
09/11/23 09/12/23
20:58 03:27
WBC 8.4
Hgb 10.6 L
Hct 33.1 L
Plt Count 223
APTT 87.1 H 91.5 H
Vital Signs:
Vital Signs
Temp Pulse Resp BP Pulse Ox
98.5 F 102 16 125/83 98
09/12/23 03:28 09/12/23 08:30 09/12/23 03:28 09/12/23 07:53 09/12/23 08:28
I&O
09/11/23 09/12/23 09/13/23
06:59 06:59 06:59
Intake Total 1527 / 1527 1362 / 1362
Balance 1527 / 1527 1362 / 1362
[2023-09-12] MEDS: OCUVITE SOFTGEL 1 CAP PO ×2 (09:35→20:52)
[2023-09-12] MEDS: ZEBETA PO (09:47)
[2023-09-12] MEDS: ZEBETA 5 MG PO (10:09)
--- NOTE | 2023-09-12 10:46 | CM ---
Chart reviewed. Patient is waiting for surgery on 09/15, Myxoma Resection. Patient is independent of ADLS, lives with her daughter in a 2 STH, 2 ENID, 0 DME. Plan is for the patient to return home with her daughter and CT Transitional RN when
medically stable. CM to follow
[2023-09-12 12:21] LABS: TSH Reflex To Free T4 0.72 uIU/ml (0.47-4.68)
[2023-09-12] MEDS: LIPITOR 20 MG PO (20:52)
[2023-09-12] MEDS: PACERONE 200 MG PO (20:52)
--- NOTE | 2023-09-12 21:00 | PTCARENOTE ---
Received pt at handoff. AOX3 and pleasant. Tele- SR. HR 80s. Heparin gtt infusing at 1200 units/hr. Pt has no c/o at this time. Currently in bed; call devonte w/in reach.
[2023-09-13] VITALS (9 sets, daily range): BP systolic 97–138; BP diastolic 55–80; BMI 28.6
[2023-09-13 03:50] LABS: APTT 99.5 Sec (23.4-35.0)
[2023-09-13] MEDS: HEPARIN 25000 UNITS/250 ML IV (06:17)
[2023-09-13] MEDS: PACERONE 200 MG PO ×2 (08:17→20:58)
[2023-09-13] MEDS: ZEBETA 5 MG PO ×2 (08:17→11:25)
[2023-09-13] MEDS: VITAMIN D3 (cholecalciferol) 25 MCG PO (08:17)
[2023-09-13] MEDS: ORETIC 6.25 MG PO (08:17)
[2023-09-13] MEDS: OCUVITE SOFTGEL 1 CAP PO ×2 (08:17→20:57)
--- NOTE | 2023-09-13 08:27 | W.PN.CARDCBS ---
Addendum entered and electronically signed by Casey Burgos MD 09/13/23 10:40:
Patient with recurrent SVT, rate approximately 130, broke with right carotid massage. Will double bisoprolol to 10 mg a day
Original Note:
Today's Communication / Plan
-
Renew heparin
Continue amiodarone
Resection of presumed myxoma on Saturday
Impression / Plan
-
PCP: Virginia Barajas
Freight Rate Specialist: Dr. Sevilla
Impression:
Presents 09/10/2023 with new finding of left atrial mass
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
nonobstructive CAD by cath 09/10
Hypertension
Hyperlipidemia
Atrial tachycardia
PACs
Macular degeneration
Lumbar disc disease
Microcytic anemia -->Thalassemia
Echo 09/10/2023: EF 60% with mild concentric LVH. 4.0 x 4.5 cm left atrial mass most consistent with myxoma
Outpatient youth nutritional monitor completed 08/13/2023: Predominantly sinus rhythm. 1162 episodes of atrial tachycardia, longest 2.8 minutes. Junctional escape beats, PAC ~4%, PVC 0.3%.
Cardiac catheterization 06/12/2023 no significant CAD, ventriculography not done
Plan:
Despite her very large presumed left atrial myxoma she looks surprisingly well.
Continue heparin to reduce embolic risk. Continue amiodarone for brief episodes of what could be SVT or atrial tachycardia.
Anticipate resection of myxoma on Saturday.
HPI 09/10/2023:
Patient is an 78-year-old female with past medical history significant for hypertension, hyperlipidemia,SVT/atrial tachycardia, lumbar disc disease, macular degeneration who presents to emergency department 09/10/2023 after she was found to have left
atrial appendage mass on outpatient echocardiogram 09/10/2023. Patient was initially seen in ED in April 2023 with cough, shortness of breath and was positive for influenza. She was noted to have SVT on EKG and spontaneously converted to sinus
rhythm. She was seen by outpatient cardiology in July 2023 and were a monitor which was completed 08/13/2023 which showed predominantly normal sinus rhythm with episodes of atrial tachycardia longest 2.8 minutes as well as occasional PACs
approximately 4% and rare PVCs. 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 Given these findings she was referred to emergency department for
evaluation. Patient reports she has dyspnea on exertion with activities such as walking up stairs. She denies having palpitations fast or irregular heartbeats, chest pain, shortness of breath at rest, orthopnea, PND, edema.
Progress Note - Freight Rate Specialist
Subjective
Date of Service: September 13, 2023:
She offers no complaints
PMH/PSH/SH/FH: Reviewed
Allergies: Cephalosporins and sulfa
Outpatient meds: Reviewed cardiac meds bisoprolol HCT, simvastatin 40 mg a day
Current meds: Atorvastatin 20 mg a day, hydrochlorothiazide 6.25 daily, bisoprolol 5 mg a day and amiodarone 200 mg twice daily, heparin
ROS negative except as above
136/80, pulse 83, respirate 16
No distress head neck exam unremarkable, lungs are clear cardiac regular rate and rhythm no murmurs JVD okay abdomen benign extremities without clubbing cyanosis or edema
CT angio 4 x 5.5 x 4 cm left atrial tumor most consistent with myxoma
Hemoglobin yesterday 10.6
AST 39
Objective
Labs:
09/12/23 03:27
09/11/23 05:16
Labs
Hgb 10.6 g/dL (12.0-16.0) L 09/12/23 03:27
Hct 33.1 % (37.0-47.0) L 09/12/23 03:27
Plt Count 223 10^3/uL (130-400) 09/12/23 03:27
PT 14.2 Sec (11.4-14.6) 09/10/23 14:41
INR 1.12 09/10/23 14:41
APTT 99.5 Sec (23.4-35.0) H 09/13/23 03:32
Sodium 138 mmol/L (135-145) 09/11/23 05:16
Potassium 3.8 mmol/L (3.5-5.1) 09/11/23 05:16
BUN 16 mg/dl (7-17) 09/11/23 05:16
Creatinine 0.6 mg/dL (0.6-1.0) 09/11/23 05:16
Glucose 116 mg/dl (70-99) H 09/11/23 05:16
Vital Signs and I&O:
Vital Signs
Temp Pulse Resp BP Pulse Ox
36.9 C 83 16 136/80 95
09/13/23 07:02 09/13/23 08:17 09/13/23 07:02 09/13/23 08:17 09/13/23 07:02
Vital Signs
Temp Pulse Resp BP Pulse Ox
36.9 C 83 16 136/80 95
09/13/23 07:02 09/13/23 08:17 09/13/23 07:02 09/13/23 08:17 09/13/23 07:02
Intake & Output
09/11/23 09/12/23 09/13/23 09/14/23
07:59 07:59 07:59 07:59
Intake Total 1527 / 1527 1362 / 1362 1134 / 1134
Balance 1527 / 1527 1362 / 1362 1134 / 1134
Physical Exam
Physical Exam
See above
--- NOTE | 2023-09-13 09:31 | W.PN.HOSP.TC ---
Today's Communication/Plan
-
see bold
Assessment / Plan
Assessment / Plan
Gen: NAD, AAOx3.
Eyes: EOMI, PERRLA, no scleral icterus.
Neck: supple.
CV: tachy, reg rhythm, +S1/S2, no m/r/g.
Resp: continues to remain CTAB, no rales, wheezes, or rhonchi.
Abd: continues to remain +BS, soft, NT, ND
Skin: No rashes.
Neuro: CN 2-12 intact, non-focal.
Psych: Normal mood and affect.
ECG (read by me): NSR @ 78, nl axis, normal TN/QRS intervals, QTc slightly prolonged at 453ms, no acute ST/TW changes
Echo:
1. 4.0 x 4.5 cm left atrial mass, most consistent with myxoma. No clear-cut evidence of mitral annular obstruction.
2. Mild left ventricular hypertrophy with preserved systolic function, EF 60%
3. Mildly thickened mitral valve with trace mitral regurgitation, increased A wave velocity
4. Mildly sclerotic aortic valve with trace aortic regurgitation
5. Normal right heart with normal pulmonary artery pressure
C 09/11/23:
1. There is a known left atrial mass with well-developed collaterals arising from the proximal right coronary artery
2. Nonobstructive coronary disease
CTA chest: There is 4 x 5.5 x 4 cm enhancing low density left atrial tumor most consistent with left atrial myxoma.
Intracardiac tumor:
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
-echo/LHC/CTA chest above
-cont heparin gtt
-cards/CT surgery following
-for myxoma resection 09/16/23
Tachycardia:
-check ECG
-appears to be SVT (discussed with Dr. Burgos) as broke with carotid massage
-cardiology states pt will need Amio
Other problems:
Chronic anemia due to thalassemia (unknown type), Hb stable
Essential hypertension: Cont Bisoprolol (dose increased)/HCTZ
Hyperlipidemia: cont statin
FULL/heparin gtt
Anticipated Discharge: > 48 hours
Subjective/Interval History
-
Date of Service: September 13, 2023
Denies CP/SOB.
Objective Data
-
Labs:
Laboratory Results
09/13/23
03:32
APTT 99.5 H
Vital Signs:
Vital Signs
Temp Pulse Resp BP Pulse Ox
98.4 F 83 16 136/80 95
09/13/23 07:02 09/13/23 08:17 09/13/23 07:02 09/13/23 08:17 09/13/23 07:02
I&O
09/12/23 09/13/23 09/14/23
06:59 06:59 06:59
Intake Total 1362 / 1362 1134 / 1134
Balance 1362 / 1362 1134 / 1134
--- NOTE | 2023-09-13 10:16 | PTCARENOTE ---
Pt noted to go into an atrial tachycardia. HR130's. Pt asymptomatic. VSS. Will notify cardiology. Will monitor.
--- NOTE | 2023-09-13 15:38 | CM ---
dc plan remains ct surgery saturday for LA mass resection
[2023-09-13] MEDS: LIPITOR 20 MG PO (20:58)
--- NOTE | 2023-09-13 22:59 | PTCARENOTE ---
Pt AOX3 and pleasant. Assessment noted as documented. Heparin gtt infusing at 12 ml/hr. Ambulatory in room w/ steady gait. Offers no c/o pain/discomfort. Currently in bed; call whitney w/in reach.
[2023-09-14] VITALS (7 sets, daily range): BP systolic 105–136; BP diastolic 60–82; BMI 28.5
[2023-09-14] MEDS: HEPARIN 25000 UNITS/250 ML IV ×2 (02:44→22:43)
[2023-09-14 03:04] LABS: Hematocrit 33.5 % (37.0-47.0); Hemoglobin 10.8 g/dL (12.0-16.0); Mean Corp Hgb Conc. 32.2 g/dL (33.0-37.0); Mean Corpuscular Volume 62.2 fL (81.0-99.0); Mean Platelet Volume 11.2 fL (7.4-10.4); Platelet Count 225 10^3/uL (130-400); Red Blood Cell Count 5.39 10^6/uL (4.20-5.40); Red Cell Dist. Width 17.2 % (11.5-14.5); White Blood Cell Count 9.5 10^3/uL (4.8-10.8)
[2023-09-14 03:14] LABS: APTT 86.2 Sec (23.4-35.0)
--- NOTE | 2023-09-14 08:32 | W.PN.HOSP.TC ---
Today's Communication/Plan
-
see bold
Assessment / Plan
Assessment / Plan
Gen: NAD, AAOx3.
Eyes: EOMI, PERRLA, no scleral icterus.
Neck: supple.
CV: RRR, +S1/S2, no m/r/g.
Resp: CTAB, no rales, wheezes, or rhonchi.
Abd: +BS, soft, NT, ND
Skin: No rashes.
Neuro: CN 2-12 intact, non-focal.
Psych: Normal mood and affect.
ECG (read by me): NSR @ 78, nl axis, normal FL/QRS intervals, QTc slightly prolonged at 453ms, no acute ST/TW changes
Echo:
1. 4.0 x 4.5 cm left atrial mass, most consistent with myxoma. No clear-cut evidence of mitral annular obstruction.
2. Mild left ventricular hypertrophy with preserved systolic function, EF 60%
3. Mildly thickened mitral valve with trace mitral regurgitation, increased A wave velocity
4. Mildly sclerotic aortic valve with trace aortic regurgitation
5. Normal right heart with normal pulmonary artery pressure
C 09/11/23:
1. There is a known left atrial mass with well-developed collaterals arising from the proximal right coronary artery
2. Nonobstructive coronary disease
CTA chest: There is 4 x 5.5 x 4 cm enhancing low density left atrial tumor most consistent with left atrial myxoma.
Intracardiac tumor:
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
-echo/LHC/CTA chest above
-cont heparin gtt
-cards/CT surgery following
-for myxoma resection 09/16/23
SVT:
-Bisoprolol increased
-also on Amio
Other problems:
Chronic anemia due to thalassemia (unknown type), Hb stable
Essential hypertension: Cont Bisoprolol (dose increased)/HCTZ
Hyperlipidemia: cont statin
FULL/heparin gtt
Anticipated Discharge: > 48 hours
Subjective/Interval History
-
Date of Service: September 14, 2023
No new complaints.
Objective Data
-
Labs:
Laboratory Results
09/14/23
02:35
WBC 9.5
Hgb 10.8 L
Hct 33.5 L
Plt Count 225
APTT 86.2 H
Vital Signs:
Vital Signs
Temp Pulse Resp BP Pulse Ox
98.6 F 79 18 107/63 94
09/14/23 07:41 09/14/23 07:45 09/14/23 07:41 09/14/23 07:39 09/14/23 07:41
I&O
09/13/23 09/14/23 09/15/23
06:59 06:59 06:59
Intake Total 1134 / 1134 1178 / 1178
Balance 1134 / 1134 1178 / 1178
--- NOTE | 2023-09-14 09:36 | W.PN.CARDCBS ---
Addendum entered and electronically signed by Slava Sevilla MD 09/14/23 10:32:
I saw and examined the patient.
The Screener And Blender's note was reviewed and I agree with the note.
Comment:
GEN: No distress, awake, Ox3
HEENT: supple, anicteric, mmm
LUNGS: CTA, no wheezes/rales
CV: Reg, S1/S2, / syst LSB, no gallop
ABD: soft, BS+, NT/ND
EXT: No edema
NEURO: Gross non-focal
SKIN: No rash
Plan:
Overall doing well. Continue IV heparin. For operating room on September 15
Continue amiodarone for atrial tachycardia/paroxysmal atrial fibrillation/SVT
Original Note:
Today's Communication / Plan
-
Plan for resection of myxoma 09/15
Impression / Plan
-
PCP: Virginia Barajas
Reserve Operator: Dr. Sevilla
Impression:
Presents 09/10/2023 with new finding of left atrial mass
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
nonobstructive CAD by cath 09/10
Hypertension
Hyperlipidemia
Atrial tachycardia
PACs
Macular degeneration
Lumbar disc disease
Microcytic anemia -->Thalassemia
Echo 09/10/2023: EF 60% with mild concentric LVH. 4.0 x 4.5 cm left atrial mass most consistent with myxoma
Outpatient gambling monitor completed 08/13/2023: Predominantly sinus rhythm. 1162 episodes of atrial tachycardia, longest 2.8 minutes. Junctional escape beats, PAC ~4%, PVC 0.3%.
Cardiac catheterization 06/12/2023: no significant CAD, ventriculography not done
Plan:
-Noted to have large L atrial myxoma.
-Continues to look well. No complaints.
-Continue IV heparin to reduce embolic risk.
-Continues on amiodarone for brief episodes of SVT/atrial tachycardia.
-Plan is for resection of myxoma on Saturday, 09/15.
HPI 09/10/2023: Patient is an 78-year-old female with past medical history significant for hypertension, hyperlipidemia,SVT/atrial tachycardia, lumbar disc disease, macular degeneration who presents to emergency department 09/10/2023 after she was
found to have left atrial appendage mass on outpatient echocardiogram 09/10/2023. Patient was initially seen in ED in April 2023 with cough, shortness of breath and was positive for influenza. She was noted to have SVT on EKG and spontaneously
converted to sinus rhythm. She was seen by outpatient cardiology in July 2023 and were a monitor which was completed 08/13/2023 which showed predominantly normal sinus rhythm with episodes of atrial tachycardia longest 2.8 minutes as well as
occasional PACs approximately 4% and rare PVCs. 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 Given these findings she was referred to emergency
department for evaluation. Patient reports she has dyspnea on exertion with activities such as walking up stairs. She denies having palpitations fast or irregular heartbeats, chest pain, shortness of breath at rest, orthopnea, PND, edema.
Progress Note - Reserve Operator
Subjective
Date of Service: September 14, 2023
Feeling well. No complaints.
Objective
Labs:
09/14/23 02:35
09/11/23 05:16
Labs
Hgb 10.8 g/dL (12.0-16.0) L 09/14/23 02:35
Hct 33.5 % (37.0-47.0) L 09/14/23 02:35
Plt Count 225 10^3/uL (130-400) 09/14/23 02:35
PT 14.2 Sec (11.4-14.6) 09/10/23 14:41
INR 1.12 09/10/23 14:41
APTT 86.2 Sec (23.4-35.0) H 09/14/23 02:35
Sodium 138 mmol/L (135-145) 09/11/23 05:16
Potassium 3.8 mmol/L (3.5-5.1) 09/11/23 05:16
BUN 16 mg/dl (7-17) 09/11/23 05:16
Creatinine 0.6 mg/dL (0.6-1.0) 09/11/23 05:16
Glucose 116 mg/dl (70-99) H 09/11/23 05:16
Vital Signs and I&O:
Vital Signs
Temp Pulse Resp BP Pulse Ox
98.6 F 79 18 107/63 94
09/14/23 07:41 09/14/23 07:45 09/14/23 07:41 09/14/23 07:39 09/14/23 07:41
Vital Signs
Temp Pulse Resp BP Pulse Ox
98.6 F 79 18 107/63 94
09/14/23 07:41 09/14/23 07:45 09/14/23 07:41 09/14/23 07:39 09/14/23 07:41
Intake & Output
09/12/23 09/13/23 09/14/23 09/15/23
06:59 06:59 06:59 06:59
Intake Total 1362 / 1362 1134 / 1134 1178 / 1178
Balance 1362 / 1362 1134 / 1134 1178 / 1178
Physical Exam
Physical Exam
GEN: No distress, awake, alert, oriented x3
HEENT: supple, anicteric, mmm
LUNGS: CTA b/l, no wheezes/rales
CV: Reg, S1/S2, no murmur
EXT: No clubbing, cyanosis, or edema
NEURO: Gross non-focal
SKIN: Warm, dry, no rash
[2023-09-14] MEDS: ZEBETA 10 MG PO (09:49)
[2023-09-14] MEDS: OCUVITE SOFTGEL 1 CAP PO ×2 (09:52→19:52)
[2023-09-14] MEDS: ORETIC 6.25 MG PO (09:53)
[2023-09-14] MEDS: PACERONE 200 MG PO ×2 (09:54→19:52)
[2023-09-14] MEDS: VITAMIN D3 (cholecalciferol) 25 MCG PO (09:54)
--- NOTE | 2023-09-14 17:34 | PTCARENOTE ---
Pt without any complaints. Pre op teaching continued regarding incentive spirometry and sternal precautions. Pt OOB to chair, walking occasionally in halls. Telemetry shows sinus rhythm @60-80.
--- NOTE | 2023-09-14 18:08 | W.PN.UPDATE ---
Update Note
Progress Note Update
Patient remains pain free on IV Heparin with therapeutic PTT. Patient is scheduled for a myxoma resection and MIGUEL clip on 09/[address] Kaufman. T&S ordered for 09/14. Standard pre-op orders will be placed in AM
[2023-09-14] MEDS: LIPITOR 20 MG PO (21:39)
[2023-09-15 02:50] VITALS: BP 121/73
[2023-09-15 03:17] LABS: APTT 124.5 Sec (23.4-35.0)
[2023-09-15 08:19] VITALS: BP 132/79
--- NOTE | 2023-09-15 08:31 | W.PN.CARDCBS ---
Today's Communication / Plan
-
Continue IV heparin
Remains in sinus on amiodarone
To OR tomorrow for resection of left atrial myxoma
Impression / Plan
-
PCP: Virginia Barajas
Mica Machine Operator: Dr. Sevilla
Impression:
Presents 09/10/2023 with new finding of left atrial mass
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
nonobstructive CAD by cath 09/10
Hypertension
Hyperlipidemia
Atrial tachycardia
PACs
Macular degeneration
Lumbar disc disease
Microcytic anemia -->Thalassemia
Echo 09/10/2023: EF 60% with mild concentric LVH. 4.0 x 4.5 cm left atrial mass most consistent with myxoma
Outpatient rn cardiac rehab completed 08/13/2023: Predominantly sinus rhythm. 1162 episodes of atrial tachycardia, longest 2.8 minutes. Junctional escape beats, PAC ~4%, PVC 0.3%.
Cardiac catheterization 06/12/2023: no significant CAD, ventriculography not done
Plan:
-Noted to have large L atrial myxoma.
-Continues to look well. No complaints.
-Continue IV heparin to reduce embolic risk.
-Continues on amiodarone for brief episodes of SVT/atrial tachycardia. Remains in sinus rhythm.
-Plan is for resection of myxoma on Saturday, 09/15.
HPI 09/10/2023: Patient is an 78-year-old female with past medical history significant for hypertension, hyperlipidemia,SVT/atrial tachycardia, lumbar disc disease, macular degeneration who presents to emergency department 09/10/2023 after she was
found to have left atrial appendage mass on outpatient echocardiogram 09/10/2023. Patient was initially seen in ED in April 2023 with cough, shortness of breath and was positive for influenza. She was noted to have SVT on EKG and spontaneously
converted to sinus rhythm. She was seen by outpatient cardiology in July 2023 and were a monitor which was completed 08/13/2023 which showed predominantly normal sinus rhythm with episodes of atrial tachycardia longest 2.8 minutes as well as
occasional PACs approximately 4% and rare PVCs. 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 Given these findings she was referred to emergency
department for evaluation. Patient reports she has dyspnea on exertion with activities such as walking up stairs. She denies having palpitations fast or irregular heartbeats, chest pain, shortness of breath at rest, orthopnea, PND, edema.
Progress Note - Mica Machine Operator
Subjective
Date of Service: September 15, 2023
no chest pains/sob.
Objective
Labs:
09/14/23 02:35
09/11/23 05:16
Labs
Hgb 10.8 g/dL (12.0-16.0) L 09/14/23 02:35
Hct 33.5 % (37.0-47.0) L 09/14/23 02:35
Plt Count 225 10^3/uL (130-400) 09/14/23 02:35
PT 14.2 Sec (11.4-14.6) 09/10/23 14:41
INR 1.12 09/10/23 14:41
APTT 124.5 Sec (23.4-35.0) H 09/15/23 02:57
Sodium 138 mmol/L (135-145) 09/11/23 05:16
Potassium 3.8 mmol/L (3.5-5.1) 09/11/23 05:16
BUN 16 mg/dl (7-17) 09/11/23 05:16
Creatinine 0.6 mg/dL (0.6-1.0) 09/11/23 05:16
Glucose 116 mg/dl (70-99) H 09/11/23 05:16
Vital Signs and I&O:
Vital Signs
Temp Pulse Resp BP Pulse Ox
99.1 F 74 18 121/73 97
09/15/23 08:24 09/15/23 04:00 09/15/23 08:24 09/15/23 02:50 09/15/23 08:24
Vital Signs
Temp Pulse Resp BP Pulse Ox
99.1 F 74 18 121/73 97
09/15/23 08:24 09/15/23 04:00 09/15/23 08:24 09/15/23 02:50 09/15/23 08:24
Intake & Output
09/13/23 09/14/23 09/15/23 09/16/23
06:59 06:59 06:59 06:59
Intake Total 1134 / 1134 1178 / 1178 1624 / 1624
Balance 1134 / 1134 1178 / 1178 1624 / 1624
Physical Exam
Physical Exam
GEN: No distress, awake, Ox3
HEENT: supple, anicteric, mmm
LUNGS: CTA, no wheezes/rales
CV: Reg, S1/S2, 1/6 syst LSB, no gallop
ABD: soft, BS+, NT/ND
EXT: No edema
NEURO: Gross non-focal
SKIN: No rash
[2023-09-15] MEDS: ZEBETA 10 MG PO (08:32)
[2023-09-15] MEDS: VITAMIN D3 (cholecalciferol) 25 MCG PO (08:33)
[2023-09-15] MEDS: PACERONE 200 MG PO ×2 (08:33→20:04)
[2023-09-15] MEDS: ORETIC 6.25 MG PO (08:33)
[2023-09-15] MEDS: OCUVITE SOFTGEL 1 CAP PO ×2 (08:33→20:04)
--- NOTE | 2023-09-15 11:17 | W.PN.HOSP.TC ---
Today's Communication/Plan
-
see bold
Assessment / Plan
Assessment / Plan
Gen: NAD, AAOx3.
Eyes: EOMI, PERRLA, no scleral icterus.
Neck: supple.
CV: remains RRR, +S1/S2, no m/r/g.
Resp: CTAB anteriorly, no rales, wheezes, or rhonchi.
Abd: +BS, soft, NT, ND
Skin: No rashes.
Neuro: remains CN 2-12 intact, non-focal.
Psych: Normal mood and affect.
ECG (read by me): NSR @ 78, nl axis, normal DE/QRS intervals, QTc slightly prolonged at 453ms, no acute ST/TW changes
Echo:
1. 4.0 x 4.5 cm left atrial mass, most consistent with myxoma. No clear-cut evidence of mitral annular obstruction.
2. Mild left ventricular hypertrophy with preserved systolic function, EF 60%
3. Mildly thickened mitral valve with trace mitral regurgitation, increased A wave velocity
4. Mildly sclerotic aortic valve with trace aortic regurgitation
5. Normal right heart with normal pulmonary artery pressure
C 09/11/23:
1. There is a known left atrial mass with well-developed collaterals arising from the proximal right coronary artery
2. Nonobstructive coronary disease
CTA chest: There is 4 x 5.5 x 4 cm enhancing low density left atrial tumor most consistent with left atrial myxoma.
Intracardiac tumor:
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
-echo/LHC/CTA chest above
-cont heparin gtt
-cards/CT surgery following
-for myxoma resection 09/16/23
SVT:
-Bisoprolol increased
-also on Amio
Other problems:
Chronic anemia due to thalassemia (unknown type), Hb stable
Essential hypertension: Cont Bisoprolol (dose increased)/HCTZ
Hyperlipidemia: cont statin
FULL/heparin gtt
Anticipated Discharge: > 48 hours
Subjective/Interval History
-
Date of Service: September 15, 2023
No new complaints.
Objective Data
-
Labs:
Laboratory Results
09/15/23 09/15/23
02:57 13:00
APTT 124.5 H Pending
Vital Signs:
Vital Signs
Temp Pulse Resp BP Pulse Ox
99.1 F 74 18 121/73 97
09/15/23 08:24 09/15/23 04:00 09/15/23 08:24 09/15/23 02:50 09/15/23 08:24
I&O
09/14/23 09/15/23 09/16/23
06:59 06:59 06:59
Intake Total 1178 / 1178 1624 / 1624
Balance 1178 / 1178 1624 / 1624
[2023-09-15 11:27] VITALS: BP 110/73
[2023-09-15 16:39] VITALS: BP 124/79
[2023-09-15] MEDS: HEPARIN 25000 UNITS/250 ML IV (17:34)
--- NOTE | 2023-09-15 19:24 | PTCARENOTE ---
Pt denies any discomfort, voicing concerns of expected apprehension, all questions answered. Pt remains on IV heparin. Telemetry shows sinus rhythm. Pt NPO after mn for CVOR on 09/15.
[2023-09-15 19:41] VITALS: BP 129/78
[2023-09-15 20:26] LABS: APTT 87.2 Sec (23.4-35.0)
[2023-09-15] MEDS: LIPITOR 20 MG PO (21:44)
[2023-09-15 22:25] VITALS: BP 124/86
[2023-09-16] VITALS (14 sets, daily range): BP systolic 90–141; BP diastolic 63–77; BMI 28.1
[2023-09-16 05:15] LABS: Hematocrit 34.7 % (37.0-47.0); Hemoglobin 11.1 g/dL (12.0-16.0); Mean Corpuscular Hgb 19.9 pg (27.0-31.0); Mean Corpuscular Volume 62.3 fL (81.0-99.0); Mean Platelet Volume 10.9 fL (7.4-10.4); Platelet Count 228 10^3/uL (130-400); Red Blood Cell Count 5.57 10^6/uL (4.20-5.40); White Blood Cell Count 8.7 10^3/uL (4.8-10.8)
[2023-09-16 05:28] LABS: APTT 82.9 Sec (23.4-35.0)
[2023-09-16 05:38] LABS: Blood Urea Nitrogen 23 mg/dl (7-17); Calcium 9.7 mg/dl (8.4-10.2); Carbon Dioxide 27 mmol/L (22-30); Chloride 102 mmol/L (98-107); Estimated Creatinine Clearance 55 ml/min; Glucose 104 mg/dl (70-99); Potassium 4.1 mmol/L (3.5-5.1); Sodium 137 mmol/L (135-145); eGFR > 60.00
--- NOTE | 2023-09-16 06:09 | W.CVOR.SURPR ---
CVOR Surgeon Immed Pre Op
-
I have examined this patient prior to performance of the scheduled procedure.
The patient's condition is unchanged from the time of the dictated/written History and
Physical and the patient is able to undergo the scheduled procedure.
Sternotomy intra cardiac tumor resection + MIGUEL E based on CHADsVAsc Score
--- NOTE | 2023-09-16 06:24 | PTCARENOTE ---
Pt. in NSR overnight, vitals stable, no chest pain/discomfort. Pt. clipped and showered x 2 with chlorhexidine soap for CVOR later this morning. Bilateral BP's completed, labs drawn and sent. PTT therapeutic, heparin to be dc'd fire department battalion chief to OR per
order.
--- NOTE | 2023-09-16 09:21 | PTCARENOTE ---
received patient this am, monitor showing NSR, VSS. patient has remained NPO after midnight. discussed with Philly MASSEY as to what medications to give to patient this am. I gave Protonix, magnesium and Bactroban as ordered. IV heparin remains on at
1100units/hr and will be D/C'd, fashion patternmaker to OR. family at bedside awaiting OR.
[2023-09-16] MEDS: PROTONIX 40 MG PO (09:30)
[2023-09-16] MEDS: MAGNESIUM OXIDE 500 MG PO (09:30)
[2023-09-16] MEDS: BACTROBAN 2% OINTMENT 1 APPLIC NASAL ×2 (10:27→19:26)
--- NOTE | 2023-09-16 11:59 | CM ---
Chart reviewed. Patient is waiting to go to the OR. Patient is independent of ADLS, lives with her daughter in a 2 [address], 2 ENID, 0 DME. Plan is for the patient to return home with CT Transitional RN. CM to follow
--- NOTE | 2023-09-16 13:24 | PTCARENOTE ---
patient sent to OR. [facility] on front of chart. patient remained NPO after MN. prepped as ordered by gayathri RN. IV heparin D/C'd mgmt consultant. pre op check list completed. personal belongings taken to [id number], daughter and son are here for patient.
--- NOTE | 2023-09-16 14:19 | CM ---
pt in OR today, cm to follow.
[2023-09-16 14:20] LABS: ACT+ - POC 107 Seconds (82-134)
[2023-09-16 14:20] LABS: Urine Albumin Negative (Neg - Trace); Urine Bilirubin Negative (Negative); Urine Character Clear (Clear); Urine Color Yellow; Urine Glucose Negative (Negative); Urine Ketone Negative (Negative); Urine Leukocyte Negative (Negative); Urine Nitrite Negative (Negative); Urine Occult Blood 1+ (Negative); Urine Urobilinogen Negative (Neg - 1+); Urine pH 6.5 (5.0-9.0)
[2023-09-16 14:29] LABS: B.E. - POC 2.7 mmol/L; Glucose - POC 115 mg/dl (65-99); HCO3 - POC 26 mmol/L (21-29); Hematocrit - POC 34 % PCV (37-47); Hemodilution- POC No; Hemoglobin Calculated - POC 11.5; Ionized Calcium - POC 1.13 mmol/L (1.12-1.27); O2 Saturation %Calculated-POC 99.9 5 (92-96); PCO2 - POC 34 mmHg (35-45); PO2 - POC 257 mmHg (80-100); Potassium - POC 5.1 mmol/L (3.6-5.0); Sodium - POC 139 mmol/L (135-145); pH - POC 7.49 (7.35-7.45)
[2023-09-16 15:02] LABS: ACT+ - POC 513 Seconds (82-134)
[2023-09-16 15:19] LABS: Urine Squamous Cell 0-2 /LPF (Few)
[2023-09-16 15:20] LABS: Urine Bacteria Few (Negative); Urine White Cell 0-2 /HPF (0-5)
[2023-09-16 15:25] LABS: B.E. - POC 5.4 mmol/L; Glucose - POC 102 mg/dl (65-99); HCO3 - POC 27 mmol/L (21-29); Hematocrit - POC 23 % PCV (37-47); Hemodilution- POC Yes; Ionized Calcium - POC 0.93 mmol/L (1.12-1.27); PCO2 - POC 29 mmHg (35-45); PO2 - POC 384 mmHg (80-100); POC Comment CPB; Potassium - POC 5.2 mmol/L (3.6-5.0); Sodium - POC 137 mmol/L (135-145); pH - POC 7.58 (7.35-7.45)
[2023-09-16 15:27] LABS: ACT+ - POC 524 Seconds (82-134)
[2023-09-16 15:58] LABS: B.E. - POC 4.1 mmol/L; Glucose - POC 180 mg/dl (65-99); HCO3 - POC 29 mmol/L (21-29); Hematocrit - POC 29 % PCV (37-47); Hemodilution- POC Yes; Hemoglobin Calculated - POC 9.8; Ionized Calcium - POC 1.02 mmol/L (1.12-1.27); O2 Saturation %Calculated-POC 99.9 5 (92-96); PCO2 - POC 43 mmHg (35-45); PO2 - POC 306 mmHg (80-100); Potassium - POC 5.1 mmol/L (3.6-5.0); Sodium - POC 138 mmol/L (135-145); pH - POC 7.44 (7.35-7.45)
[2023-09-16 15:59] LABS: ACT+ - POC 501 Seconds (82-134)
[2023-09-16 16:26] LABS: B.E. - POC 3.2 mmol/L; Glucose - POC 157 mg/dl (65-99); HCO3 - POC 29 mmol/L (21-29); Hematocrit - POC 30 % PCV (37-47); Hemodilution- POC Yes; Hemoglobin Calculated - POC 10.1; Ionized Calcium - POC 1.08 mmol/L (1.12-1.27); O2 Saturation %Calculated-POC 99.8 5 (92-96); PCO2 - POC 48 mmHg (35-45); PO2 - POC 224 mmHg (80-100); POC Comment REWARM; Potassium - POC 4.5 mmol/L (3.6-5.0); Sodium - POC 139 mmol/L (135-145); pH - POC 7.39 (7.35-7.45)
[2023-09-16 16:26] LABS: ACT+ - POC 473 Seconds (82-134)
[2023-09-16 17:16] LABS: ACT+ - POC 104 Seconds (82-134)
[2023-09-16 17:18] LABS: B.E. - POC 1.1 mmol/L; Glucose - POC 145 mg/dl (65-99); HCO3 - POC 25 mmol/L (21-29); Hematocrit - POC 26 % PCV (37-47); Hemodilution- POC Yes; Hemoglobin Calculated - POC 8.8; Ionized Calcium - POC 1.27 mmol/L (1.12-1.27); PCO2 - POC 37 mmHg (35-45); PO2 - POC 476 mmHg (80-100); Potassium - POC 4.2 mmol/L (3.6-5.0); Sodium - POC 141 mmol/L (135-145); pH - POC 7.45 (7.35-7.45)
--- NOTE | 2023-09-16 18:08 | W.PN.CT.SURG ---
CT Surgery Operative Note
-
CARDIAC SURGERY OPERATIVE REPORT
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
Postoperative Diagnosis: Same
Procedure(s) Performed:
1. Standard sternotomy with aortic and bicaval cannulation
2. Resection of left atrial tumor along with intra-atrial septum
3. Bovine pericardial patch repair of iatrogenic ASD (2cm x 3cm)
4. Inspection of right and left ventricles
5. Placement of temporary ventricular pacing wire
6. Transesophageal echocardiography
Date of Surgery: 09/16/2023
Comorbidities:
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
2. Atrial tachycardia with PACs and PVCs
3. Hypertension
4. Hyperlipidemia
5. Macular degeneration
6. Osteoarthritis/osteopenia
Attending Surgeon: Juan Francisco Kaufman MD, MS
Assistants: Keyana Bermudez PA-C (present and necessary to video library assistant, retraction, suction, exposure, suture management, and wound closure under my direction)
Anesthesiology: Brenton Loaiza MD and Yamel Chávez CRNA
Scrub and Circulating RNs: Cheryl Blair RN, Romana Garner RN
Landing Gear Mechanic: Georgia Murphy CCP
Anesthesia: GETA
EBL: per perfusion records
Products: none
CPB Time: 113 minutes
Aortic Cross Clamp Time: 74 minutes
Indication(s) for Procedures: This is an 78-year-old female who had an outpatient echocardiogram was found to have a very large left atrial mass attached to the interatrial septum. She is also having SVTs, atrial tachycardia and PVCs. Given the
size of the mass and the risk for cerebral embolism, she was kept inpatient on heparin and offered surgical resection. Given her age, she was considered to be higher than average risk which both she and her family accepted.
Findings: Her left ventricular ejection fraction preoperatively was essentially normal with an EF of approximately 55% with no regional wall motion abnormalities. Following surgery her EF remained the same at 55% with no new regional wall motion
abnormalities. The mass itself was located in the left atrium along the interatrial septum at the foramen ovale. There was a very broad stalk that was densely adherent and infiltrating into the intra-atrial septum. In order to safely remove the
mass, I had to make incision into the right atrium along the foramen ovale and essentially cut out the entire intra-atrial septum along that ring the defect measured approximately 2.0 x 3.0 cm in its dimensions. I then used a bovine pericardial
patch with a smooth surface towards the left atrium and patched with 5-0 Prolene in a running fashion along with several reinforcement sutures around the edges. Transesophageal echocardiography verified no interatrial shunt and no other iatrogenic
shunt between the root and left atrium. There were some tiny raw surface vessels in the left atrium that were patent but no significant flow velocity seen with color Doppler. She did not require any products. She did not require any inotropic
support. After coming off of cardiopulmonary bypass there was a significant amount of CO2 in the left ventricle and took some time for appropriate de-airing before decannulation. There were initially some ST segment changes secondary to air
embolism down the right coronary artery. The blood pressure was driven up and the heart was allowed to inject, over time the ST segment subsided and ventricular function bilaterally returned to normal. Left atrial appendage was verified to be free
of any thrombus or debris preoperatively. It was clipped after removing the mass in order to ensure that the left atrial appendage was clear. It was verified to be flush the base with no color flow on Doppler.
Specimen(s): Large left atrial mass along with the intra-atrial septum attached to its base.
Prosthesis: 35 mm left atrial appendage clip, serial #[id number]. Single X plate at the manubrium with 4 x 14 mm screw
Description of Procedure: The patient was taken to the operating room. Their identity and procedure to be performed were verified and they were positioned supine on the operating table. Induction via general anesthesia with endotracheal intubation
was performed and central venous access and arterial monitoring were inserted. A preoperative transesophageal echocardiogram was performed to assess cardiac function and valvular function. The patient was then prepped and draped from chin to feet in
a sterile fashion. A preoperative time-out was performed with all members of the team present. A midline chest incision was performed along with median sternotomy. The innominate vein was isolated. Full heparinization was given (a total of 40,000
units). We created a pericardial well. The aortic cannulation site was chosen where it was soft, pliable, and free of calcium. Cannulation was performed with an arterial cannula in the ascending aorta, angled metal tip cannular in the superior vena
cava and straight bendable cannula in the inferior vena cava. The arterial cannula line had an appropriate bounce and correlating pressures. Next, a root vent/antegrade cannula was inserted into the ascending aorta. The ACT was confirmed to be over
400 and retrograde autologous priming was performed before commencing cardiopulmonary bypass. The pulmonary artery was away from the aorta to facilitate a clamp site. Sondergaard�s groove was developed after creating the oblique sinus. The
aortic cross-clamp was placed after decreasing the flow on the bypass and mean arterial pressure. A total of 1.2L initial dose of antegrade Del-Nido cardioplegia solution was given and planned for re-dosing every 75 minutes as necessary. There was
rapid electro-mechanical arrest of the heart at 300 cc of cardioplegia. The left ventricle was observed for distention on echocardiogram and manual palpation. Cold slush was placed into a lap on the RV and we systemically cooled to 34 degrees
centigrade.
Carbon dioxide was used to flood the field. Next, the left atrial mass was accessed via the intra-atrial groove followed by analysis. The mass itself had a very broad base with no obvious stock. It was densely involved at the septal portion next
to the aortic root as well as the intra-atrial septum at the orozco ovale. Using a sharp 15 blade, I was able to identify an edge. Using sharp dissection I was able to enter into the right atrium through the orozco ovale and felt this around
removing most of the mass en bloc. It was very fragile and there were several pieces that I had to remove as a separate specimen. Additional shavings were taken towards the root portion being careful not to enter into the root. At this point I
opted to isolate the SVC and IVC using Vesseloops and entered the right atrium and a longitudinal fashion placing stay sutures. The orozco ovale was clearly visualized. Using a bovine pericardial patch I fashioned a 2.5 x 3.5 cm circular patch
with the smooth surface facing the left atrium. Patch was sewn onto using 5-0 Prolene in a running fashion from apex to apex followed by additional 5 of reinforcement sutures along the circumference. I then turned my attention back to the left
atrium and inspected the left ventricle, mitral valve, and left atrial appendage. Satisfied that there is no residual tumor or fragments, the left atrium was closed with 4-0 Prolene in a running fashion. I turned my attention back towards the
right atrium and inspected the right ventricle and coronary sinus. No fragments of tumor were the present. The tricuspid valve appeared to be normal. I then medialized the heart in order to expose the left atrial appendage. The ligament of
Arsh was divided using electrocautery. This was sized to a 35 mm clip which was applied flush to the base. At this point under SVC and IVC isolation, the head was lowered due to deep Trendelenburg, and the flows were lowered in order to remove
the cross-clamp. Once the cross-clamp was removed the root vent remained on. The heart was allowed to reperfused while the right atrial incision was closed with 5-0 Prolene in a running fashion from apex to apex. There was significant amount of
CO2 inside the left atrium as expected and we allowed some time for de-airing to take place.
De-airing maneuvers were performed and temporary ventricular pacing wires were placed base of the right ventricle, respectively. The left and right atrial suture lines were hemostatic. Transesophageal echocardiography revealed no evidence of
shunting between the left atrium and right atrium as well as the aortic root and left and right atriums. Ventricular function was normal. Once de-airing was satisfactory the root vent was removed. After verifying acceptable parameters, we initiated
weaning from cardiopulmonary bypass. Once we were off cardiopulmonary bypass, the venous cannulas was clamped and removed sequentially. A test dose of protamine was administered and the patient was monitored for any adverse reaction before resuming
protamine. Once half of the protamine dose was delivered, pump suckers were turned off and the systolic blood pressure was lowered for aortic decannulation. The aortic cannula was removed and purse strings were tied down. All cannulation sites were
oversewn with a 4-0 prolene. The left atrial suture line was inspected and hemostasis was confirmed. Mediastinal hemostasis was obtained. Two #24 Daren drains were placed within the pericardium. The sternum was approximated with 3 #7 single and 4 #8
double stainless steel wires. The manubrium was reinforced with a single X plate with 4 x 14 mm screws. Fascia was approximated with #1 vicryl suture. The subcutaneous, dermis and epidermis were closed in layers in a running fashion. The skin
wound was cleansed and dressed.
All instrument, sponge, and needle counts were confirmed to be correct x 2 at the end of the operation. The patient was transferred to the cardiac intensive care unit in critical but stable condition.
I, Dr. Juan Francisco Kaufman, was present, scrubbed for, and performed all critical elements of this procedure.
Juan Francisco Kaufman MD, MS
Cardiothoracic Surgeon
[facility]
This dictation was created using the [employer] dictation system. Please excuse any grammatical, typographical, or 'sound alike' errors
--- NOTE | 2023-09-16 18:18 | W.PN.UPDATE ---
Update Note
Progress Note Update
NEURO: sedated on precedex, pupils +2mm B/L
RESP: #8OT @22cm 14/475/60/5 Lungs clear B/L. 2 mediastinal (5ml on arrival) chest tubes to -20cm suction. Sanguineous drainage
CV: RRR +S1, S2, no S3, no�rub, no murmur. Dermabond to median sternotomy. RIJ w/[place] catheter
ABD: round, soft, no BS
EXT: no edema, +2/4 DP pulses B/L, no femoral bruit, Left brachial arterial line
: Corado with clear yellow urine
�
A/P: POD #0 s/p Left atrial mxyoma resection, ASD repair, and LAAC
CHRISTINE: EF�55-60%
- wean and extubate as able
- f/u post-operative labs
-Monitor CT output and UOP
- Check post-op EKG
- Wean levophed for MAPs> 65
- ASA tonight
- Will give lactated ringers
- Cardiology consulted.
# acute surgical blood loss anemia-expected
- trend CBC; if patient requires large amounts of pressor support will transfuse 1uPRBCs
- Will start IV Iron
�
# post-operative hyperglycemia
- insulin infusion x 24h
�
# Hyperlipidemia
- resume�statin once tolerating PO
[2023-09-16 18:25] LABS: Glucose - Point of Care 174 mg/dl (70-99)
[2023-09-16 18:27] LABS: B.E. 0.4 mmol/L; HCO3 24.3 mmol/L (21-28); Ionized Calcium 1.24 mMOL/L (1.15-1.33); O2 Saturation % 99.9 % (94-98); PCO2 35 mmHg (32-35); PO2 199 mmHg (83-108); Potassium 4.3 mMOL/L (3.5-5.1); Sodium 136 mMOL/L (136-145); pH 7.45 (7.35-7.45)
[2023-09-16 18:29] LABS: Hematocrit 25.1 % (37.0-47.0); Hemoglobin 8.2 g/dL (12.0-16.0); Platelet Count 159 10^3/uL (130-400)
--- NOTE | 2023-09-16 18:32 | PTCARENOTE ---
received pt from the CVOR into 2265, sinus rhythm on tele w HR 70's, epicardial V wire set to back up 30/10. + peripheral pulses, no edema. Lungs CTA, #8 ETT/23cm at the right lip, pox 98% on SIMV 60%/14/475/+5 PEEP. Hypoactive BS, Corado draining
yellow, CTx2 w minimal amount of red drainage. Right IJ cordis w slick, CVP 3. Post op labs reviewed w the CT SOPHIA. EKG and CXR completed as ordered.
Drips
Insulin titrated per glycemic
Levophed 2mcg
[2023-09-16 18:38] LABS: INR 1.53; PT 18.2 Sec (11.4-14.6)
[2023-09-16 18:39] LABS: APTT 32.4 Sec (23.4-35.0)
[2023-09-16 18:47] LABS: Blood Urea Nitrogen 20 mg/dl (7-17); Estimated Creatinine Clearance 55 ml/min; Glucose 155 mg/dl (70-99); Magnesium 2.8 mg/dl (1.6-2.3)
--- NOTE | 2023-09-16 19:00 | PTCARENOTE ---
alfredoe report received from previous RN, assumed care of pt. pt in bed, intubated and sedated s/p CVOR. precedex gtt infusing @ 0.6mcg. ETT intact, vent set to SIMV 14/475/5/5/60%. POX 100%. B/L breath sounds present. CT x2 intact to -20cm wall
suction, drainage WNL, no air leak present. NSR on monitor, HR 70's. left brachial art line intact. SBP 110's. Levo gtt infusing @ 2mcg. epicardial V wires intact, set to back up VVI 30, mA 10. B/L radial and DP pulses palpable. no edema present.
RIJ cordis and SLIC catheter intact w KVOs infusing. resendiz catheter intact, draining clear yellow urine, UO adequate. hypoactive bowel sounds present. Insulin gtt infusing per glycemic protocol. all surgical sites stable. see worklist for full
assessment, VS, and interventions. pt sleeping.
[2023-09-16 19:08] LABS: Glucose - Point of Care 175 mg/dl (70-99)
[2023-09-16] MEDS: ANCEF 10 IV ×2 (19:21)
[2023-09-16] MEDS: PACERONE PO ×3 (19:22→23:18)
[2023-09-16] MEDS: NOVOLOG FLEXPEN SC (19:22)
[2023-09-16] MEDS: OCUVITE SOFTGEL PO ×2 (19:22→19:24)
[2023-09-16] MEDS: TYLENOL PO ×2 (19:22→21:31)
[2023-09-16] MEDS: VITAMIN D3 (cholecalciferol) PO (19:22)
[2023-09-16] MEDS: NSS 500 IV (19:22)
[2023-09-16] MEDS: NEURONTIN PO ×2 (19:22→21:31)
[2023-09-16] MEDS: ZEBETA PO (19:23)
[2023-09-16] MEDS: ORETIC PO (19:23)
[2023-09-16] MEDS: SENOKOT-S PO (19:24)
[2023-09-16] MEDS: ZOFRAN 4 MG IV (19:45)
[2023-09-16 20:06] LABS: Glucose - Point of Care 129 mg/dl (70-99)
[2023-09-16 20:58] LABS: Glucose - Point of Care 130 mg/dl (70-99)
[2023-09-16] MEDS: ASPIRIN 300 MG RECTAL (21:03)
[2023-09-16] MEDS: LIPITOR PO (21:31)
[2023-09-16 21:54] LABS: Glucose - Point of Care 137 mg/dl (70-99)
[2023-09-16 22:05] LABS: Hematocrit 26.8 % (37.0-47.0); Hemoglobin 8.8 g/dL (12.0-16.0); Platelet Count 202 10^3/uL (130-400)
[2023-09-16] MEDS: ANCEF 5 IV (22:05)
--- NOTE | 2023-09-16 23:00 | PTCARENOTE ---
no acute changes in assessment, pt VSS. pt wakes for short periods, follows commands JEFFERSON equally. Precedex gtt off. NSR 70's. Levo infusing @ 3mcg. POX 100% on vent, SIMV 14/475/5/5/40%. attempted pt on SBT, but pt having frequent periods of apnea.
CT output and UO WNL. Insulin gtt maintained per protocol. all surgical sites stable. spoke w daughter on phone, update given. pt sleeping between care.
[2023-09-16 23:03] LABS: Glucose - Point of Care 132 mg/dl (70-99)
[2023-09-17] VITALS (34 sets, daily range): BP systolic 85–130; BP diastolic 52–80; BMI 28.1
[2023-09-17 00:27] LABS: HCO3 23.5 mmol/L (21-28); Ionized Calcium 1.22 mMOL/L (1.15-1.33); PCO2 37 mmHg (32-35); PO2 138 mmHg (83-108); pH 7.41 (7.35-7.45)
[2023-09-17 00:33] LABS: O2 Therapy CPAP
--- NOTE | 2023-09-17 00:45 | PTCARENOTE ---
cpap ABG results reviewed w CT PA Ed. orders received for 1 amp sodium bicarb and then OK to extubated. W[employer] ARC at bedside, pt extubated @ 0040 to 6LNC. no wheezing or stridor present. POX 100%. VSS. IS 750.
[2023-09-17] MEDS: SODIUM BICARBONATE 50 MEQ IV (00:46)
[2023-09-17 00:53] LABS: Glucose - Point of Care 146 mg/dl (70-99)
--- NOTE | 2023-09-17 01:08 | W.PN.CT ---
Today's Communication / Plan
-
Plan:
-No major issues overnight. Hemodynamically and neurologically intact
-Pt slow to awaken from anesthesia, successfully extubated @ 0040 the AM of 09/16
-Weaned off Levophed gtt overnight, remains on insulin gtt per protocol
-Cont. current meds (ASA, Amiodarone, Lipitor, Iron, Vit. C; hold AM dose of BB)
-U/O since OR 500 mL (came back from surgery late, @ ~1800)
-Monitor chest tube output: 2Med 65/80
-D/C'd a-line @ 0420
-Tele phase once off insulin gtt today
-D/C'd resendiz catheter @ 0600
-Maintain cordis
-Maintain temporary pacing wire (will pull likely tomorrow
-Encourage use of IS
-Wean off of O2 as tolerated
-OOB into chair/Ambulate
Assessment / Plan
-
Assessment:
-S/P Standard sternotomy with aortic and bicaval cannulation/Resection of left atrial tumor along with intra-atrial septum/ Bovine pericardial patch repair of iatrogenic ASD (2cm x 3cm)/ ELAA (35 mm clip)/Inspection of right and left ventricles by
Dr. Kaufmna, 09/16/23, pod#1
-Newly diagnosed left atrial intracardiac tumor
-Atrial tachycardia/SVT
-PACs/PVCs
-LVEF 55-60% per intraop CHRISTINE
-Hypertension
-Hyperlipidemia
-Anemia
-Macular degeneration
-Osteoarthritis/osteopenia
-S/P hernia repair
-S/P bilateral cataracts
-Acute postop blood loss/on chronic Anemia (stable without blood transfusion)
-Acute postop atelectasis
-Acute postop hypovolemia with subsequent hypervolemia
Discussed patient care with: Cardiology, Nursing, Respiratory Therapy, Pharmacy and Care Team
Subjective
Procedure
S/P Standard sternotomy with aortic and bicaval cannulation/Resection of left atrial tumor along with intra-atrial septum/ Bovine pericardial patch repair of iatrogenic ASD (2cm x 3cm)/ ELAA (35 mm clip)/Inspection of right and left ventricles by
Dr. Kaufman, 09/16/23,
-
Date of Service: September 17, 2023
Pt c/o incisional pain, relieved by current analgesic, otherwise feels well
Objective Data
-
PT 18.2 Sec (11.4-14.6) H 09/16/23 18:13
INR 1.53 09/16/23 18:13
APTT 32.4 Sec (23.4-35.0) 09/16/23 18:13
Vital Signs
Vital Signs
Temp Pulse Resp BP Pulse Ox
99.6 F 83 14 100/65 99
09/17/23 01:00 09/17/23 01:00 09/16/23 22:00 09/17/23 00:00 09/17/23 00:45
CT Intake/Output/Weight
09/16/23 09/16/23 09/17/23
06:59 18:59 06:59
Intake Total 1174.1 / 1174.1 39.6 / 242.1 202.5 / 242.1
Output Total 35 / 35 50 / 445 395 / 445
Balance 1139.1 / 1139.1 -10.4 / -202.9 -192.5 / -202.9
SaO2: 99 (2L)
Physical Exam
-
General: Awake, Oriented and AOx3
Cardiovascular: Regular rate & rhythm, No Murmurs, No Rub and No Gallop
Respiratory: Decreased Breath Sounds (at bases, otherwise clear)
Sternum: Stable
Incision: Clean, Dry, Intact and Dressing Intact
Extremities: No Edema
Data Reviewed
-
Lab Results: Results Reviewed
Medications: Active Meds Reviewed
Chest X-Ray: Report Reviewed and Image Reviewed
ECG: Report Reviewed and Image Reviewed
[2023-09-17 02:58] LABS: Glucose - Point of Care 127 mg/dl (70-99)
--- NOTE | 2023-09-17 03:00 | PTCARENOTE ---
pt VSS, no acute changes in assessment. pt AAOx4. pt denies any pain. NSR 80's. Levo gtt off. POX 97% on 2LNC. CT output and UO WNL. Insulin gtt maintained per protocol. all surgical sites stable. AM labs drawn and sent. pt sleeping between care.
[2023-09-17 03:22] LABS: Hematocrit 26.2 % (37.0-47.0); Hemoglobin 8.7 g/dL (12.0-16.0); Mean Corp Hgb Conc. 33.2 g/dL (33.0-37.0); Mean Corpuscular Hgb 20.6 pg (27.0-31.0); Mean Corpuscular Volume 62.1 fL (81.0-99.0); Platelet Count 194 10^3/uL (130-400); Red Blood Cell Count 4.22 10^6/uL (4.20-5.40); Red Cell Dist. Width 16.3 % (11.5-14.5); White Blood Cell Count 12.9 10^3/uL (4.8-10.8)
[2023-09-17 03:43] LABS: Blood Urea Nitrogen 24 mg/dl (7-17); Calcium 8.9 mg/dl (8.4-10.2); Carbon Dioxide 25 mmol/L (22-30); Chloride 108 mmol/L (98-107); Estimated Creatinine Clearance 55 ml/min; Glucose 113 mg/dl (70-99); Magnesium 2.3 mg/dl (1.6-2.3); Potassium 4.1 mmol/L (3.5-5.1); Sodium 141 mmol/L (135-145); eGFR > 60.00
[2023-09-17 04:03] LABS: Glucose - Point of Care 114 mg/dl (70-99)
--- NOTE | 2023-09-17 04:22 | W.PN.CARD.SR ---
Sheath/IABP Sheath Removal
Sheath Removal
Left Arterial Brachial:
Site appearance prior to sheath removal: Oozing (slight)
Sheath removed by:: Physician patient support assistant
Name of associate removing sheath: Kuldip Nascimento
Time of sheath removal: 04:10
Time hemostasis achieved: 04:20
Site appearance post sheath removal: Intact
Method of Hemostasis Post Sheath Removal: Manual Pressure (x10)
Dressing dry and intact?: Yes
--- NOTE | 2023-09-17 04:45 | PTCARENOTE ---
left brachial art line d/c'd by CT PA. RILeo SLIC catheter d/c'd. pt assisted OOB to chair without difficulty. weight obtained. pt resting comfortably.
[2023-09-17] MEDS: ANCEF 5 IV ×2 (05:20→13:58)
[2023-09-17] MEDS: TYLENOL 1000 MG PO ×3 (05:20→22:01)
[2023-09-17 05:25] LABS: Glucose - Point of Care 124 mg/dl (70-99)
[2023-09-17 06:37] LABS: Glucose - Point of Care 130 mg/dl (70-99)
--- NOTE | 2023-09-17 07:33 | W.PN.ANS.POP ---
Anesthesia Post Operative
- Anesthesia Post Op Note
Vital Signs Stable-See Nursing Note: Yes
Airway Patent: Yes
Adequate Pain Control: Yes
Change in Mental Status: No
Current Postoperative Nausea & Vomiting: No
Anesthesia Complications: No
General Anesthetic Recall: No
Unplanned Admission: No
Post Op Hydration Adequate: Yes
--- NOTE | 2023-09-17 08:00 | PTCARENOTE ---
Patient received from warehouse worker 2nd shift resting oob in chair, AAO x 3, states pain controlled at this time. NSR via cm, SaO2 @ 93% on RA. Epicardial V-wire to pulse generator set to backup rate 30bpm, no spikes noted. Mediastinal chest tubes x 2,
Y-connected to one pleurevac, no air leak or crepitus noted. All procedural sites stable. Patient and daughter at bedside, updated to plan of care for the day, in agreement. See work list for full assessment and interventions performed.
[2023-09-17 08:07] LABS: Glucose - Point of Care 132 mg/dl (70-99)
[2023-09-17] MEDS: BACTROBAN 2% OINTMENT 1 APPLIC NASAL ×2 (08:12→20:32)
[2023-09-17] MEDS: LIDOCAINE 4% PATCH 1 PATCH TOPICAL (08:12)
[2023-09-17] MEDS: LOPRESSOR 12.5 MG PO (08:13)
[2023-09-17] MEDS: PROTONIX 40 MG PO (08:13)
[2023-09-17] MEDS: VITAMIN D3 (cholecalciferol) 25 MCG PO (08:13)
[2023-09-17] MEDS: LOW STRENGTH ASPIRIN 81 MG PO (08:13)
[2023-09-17] MEDS: SENOKOT-S 1 TABLET PO ×2 (08:13→20:31)
[2023-09-17] MEDS: OCUVITE SOFTGEL 1 CAP PO ×2 (08:13→20:32)
[2023-09-17] MEDS: MAGNESIUM OXIDE 500 MG PO ×2 (08:13→20:32)
[2023-09-17] MEDS: PACERONE 200 MG PO ×3 (08:13→22:01)
[2023-09-17] MEDS: NEURONTIN 100 MG PO ×3 (08:13→22:01)
[2023-09-17] MEDS: NOVOLOG FLEXPEN SC ×3 (08:13→18:15)
--- NOTE | 2023-09-17 09:28 | CON.INTV ---
Consultation
Consultation Request
Date/Time Consultation Requested: 09/16/2023 - 1730
Date/Time Consultation Performed: 09/17/2023 - 919
Requesting Provider: ASHLEY Araiza
Performing Provider: Dr. Phoenix
Reason for Consultation: s/p LA tumor resection
Medical History
-
Chief Complaint: BARRON/Abnormal echo
History of Present Illness:
78-year-old female with a past medical history of hypertension, hyperlipidemia, lumbar DDD and macular degeneration presents with abnormal echo. She had gone to her dormitory keeper on 08/09/[address] Sevilla due to BARRON. She had an EKG in
April that showed SVT and they were PACs with some PAT on EKG from her office visit with cardiology. A 4-day ekg monitor and an echo were ordered -Holter predominantly showed normal sinus rhythm with episodes of atrial tachycardia and
occasional PACs with rare PVCs. 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 She was sent to the hospital due
to this abnormal echo. Initial BP 168/95, pulse rate 78 bpm, SpO2 96% on room air and she was afebrile to 99 �F. Initial labs showed mild anemia to 11.3. Heparin was started and cardiology + CT surgery were consulted. A left heart
catheterization was performed on 09/10 showing left atrial mass with well-developed collaterals arising from the proximal RCA. There was otherwise nonobstructive coronary artery disease. She was continued on heparin drip and on 09/16/2023, she
underwent left atrial tumor with intra-atrial septum resection, with bovine pericardial patch repair of iatrogenic ASD. There were no complications, and patient was transferred to the CVICU postoperatively with critical care services consulted for
additional management/recommendations.
Today I saw the patient and she was doing well. She is on an insulin gtt at 4.5 units/hr. Current heart rate 92-103 and BP 117/67. SpO2 96% on room air. She has mediastinal chest tubes x [address] Patient has some mild chest discomfort but
otherwise denies shortness of breath, headache, abdominal pain, fevers or chills.
PMHx: Hypertension, hyperlipidemia, lumbar DDD, macular degeneration
PSHx: Cataract extraction, hernia repair
Past Medical History
Past Medical History: Other (Above as per HPI)
Past Surgical History: Other (Above as per HPI)
Social History
Tobacco: Non-smoker
Alcohol: None
Drug: None
Personal:
Living: With Family
Employment: Retired
Family History
Family History: Cancer (Mother: Liver cancer)
Allergies / Home Medications
Allergies
Allergy/AdvReac Type Severity Reaction Status Date / Time
cephalexin monohydrate Allergy Unknown Unknown Verified 09/10/23 12:12
[From Keflex]
Sulfa (Sulfonamide Allergy Unknown Unknown Verified 09/10/23 12:12
Antibiotics)
Home Medications
�Medication �Instructions �Recorded �Confirmed �Last Taken �Type
bisoprolol 2.5 1 tab PO DAILY 09/10/23 09/10/23 09/10/23 History
mg-hydrochlorothiazide 6.25 mg
tablet
cholecalciferol (vitamin D3) 25 25 mcg PO DAILY 09/10/23 09/10/23 09/10/23 History
mcg (1,000 unit) tablet (Vitamin
D3)
simvastatin 40 mg tablet (Zocor) 40 mg PO HS 09/10/23 09/10/23 09/09/23 History
vitamins A,C,U-qvls-igvpmh 2,148 1 tab PO BID 09/10/23 09/10/23 09/10/23 History
mcg-113 mg-45 mg-17.4 mg tablet
(PreserVision AREDS)
Review of Systems
-
History Source: Patient
All other systems: Negative unless noted
Vitals / Labs / Diagnostic Testing
Vital Signs
Temp Pulse Resp BP Pulse Ox
98.6 F 90 16 121/76 93
09/17/23 08:12 09/17/23 08:13 09/17/23 08:12 09/17/23 08:13 09/17/23 09:04
Lab Data
09/17/23 02:59
09/17/23 02:59
Laboratory Results
09/16/23 09/17/23
18:13 00:11
PT 18.2 H
INR 1.53
APTT 32.4
pH 7.45 7.41
pCO2 35 37 H
pO2 199 H 138 H
HCO3 24.3 23.5
O2 Delivery Level Cpap
Diagnostic Testing:
Physical Exam
-
HEENT: Normocephalic and Anicteric
Cardiovascular: S1/S2, Peripheral Edema (Negative) and Other (Tachycardic)
Respiratory: Clear, Wheeze (Negative), Rales (Negative), Rhonchi (Negative) and Non-Labored Respirations
GI: Soft, Non Distended and Non Tender
Neurology: Awake, Alert and Tremors (negative)
Skin: Warm and Dry
General: Comfortable, Fever (Negative) and Chills (Negative)
Assessment
-
Assessment: 78-year-old female with a past medical history of hypertension, hyperlipidemia, lumbar DDD and macular degeneration presents with abnormal echo. She had gone to her dormitory keeper on 08/09/[address] Sevilla due to BARRON. She had an
EKG in April that showed SVT and they were PACs with some PAT on EKG from her office visit with cardiology. A 4-day ekg monitor and an echo were ordered -Holter predominantly showed normal sinus rhythm with episodes of atrial tachycardia and
occasional PACs with rare PVCs. 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 She was sent to the hospital due
to this abnormal echo. Initial BP 168/95, pulse rate 78 bpm, SpO2 96% on room air and she was afebrile to 99 �F. Initial labs showed mild anemia to 11.3. Heparin was started and cardiology + CT surgery were consulted. A left heart
catheterization was performed on 09/10 showing left atrial mass with well-developed collaterals arising from the proximal RCA. There was otherwise nonobstructive coronary artery disease. She was continued on heparin drip and on 09/16/2023, she
underwent left atrial tumor with intra-atrial septum resection, with bovine pericardial patch repair of iatrogenic ASD. There were no complications, and patient was transferred to the CVICU postoperatively with critical care services consulted for
additional management/recommendations.
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
Impression:
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
#Atrial tachycardia + PACs s/p MIGUEL-exclusion via clip - POD#1
#Leukocytosis � likely reactive
#Acute on chronic anemia
Plan:
Tolerated extubation overnight to nasal cannula --> she is currently on room air breathing comfortably
Maintain SpO2 >90-94%
Encourage incentive spirometry
Increase activity as tolerated
Pain control
Aspiration precautions
prn nebulized bronchodilator
Maintain MAP>65
Replete electrolytes with K>4, Mg>2
Monitor tachycardia --> continue PO Lopressor and adjust dose as needed
Continue to monitor chest tube output -mediastinal chest tubes x2
Follow hemoglobin
Continue to follow platelet count and coags
Transfuse blood product as needed to keep Hb>7, plt>50k
CT surgery managing chest tubes
Follow blood sugar with goal BG 140-180mg/dL
Insulin supplementation as needed
Early nutrition
Early mobilization
DVT prophylaxis
Cardiac rehab consult
Patient will be weaned off of insulin infusion later today and then will be transferred to CVICU�telemetry. Once patient is transferred to CVICU�telemetry, Display Associate/Pulmonary service will sign off. Thank you for allowing us to be involved in
the care of this patient. Please re-consult if there are any additional questions/concerns, or if patient's respiratory status deteriorates.
Reviewed the patient's pertinent medical records including radiographs, microbiology, laboratory evaluations, and discussion with primary team, and critical care nursing.
Total time spent today was 75 minutes for this encounter. Time includes reviewing laboratory test/imaging results, reviewing pertinent medical records, obtaining and reviewing medical history, performing an appropriate exam, ordering medications,
tests and procedures. Time also includes documentation of this encounter, coordinating patient care and communicating with other healthcare professionals. Total time does not include separately billed tests performed on this date of service.
Data:
CXR 09-17-2023:
Interval removal of endotracheal tube and right central venous catheter, with right venous sheath still present.
No evidence for significant pneumothorax.
CTA Chest w/wo contrast 09-12-2023: There is 4 x 5.5 x 4 cm enhancing low density left atrial tumor most consistent with left atrial myxoma.
TTE 09-10-2023:
1. 4.0 x 4.5 cm left atrial mass, most consistent with myxoma. No clear-cut
evidence of mitral annular obstruction.
2. Mild left ventricular hypertrophy with preserved systolic function, EF 60%
3. Mildly thickened mitral valve with trace mitral regurgitation, increased A
wave velocity
4. Mildly sclerotic aortic valve with trace aortic regurgitation
5. Normal right heart with normal pulmonary artery pressure
[facility] 09-11-2023:
1. There is a known left atrial mass with well-developed collaterals arising from the proximal right coronary artery
2. Nonobstructive coronary disease
Outpatient ekg monitor completed 08/13/2023: Predominantly sinus rhythm. 1162 episodes of atrial tachycardia, longest 2.8 minutes. Junctional escape beats, PAC ~4%, PVC 0.3%.
[2023-09-17 10:13] LABS: Glucose - Point of Care 145 mg/dl (70-99)
[2023-09-17] MEDS: NOVOLIN R INSULIN INFUSION 100 IV (10:27)
--- NOTE | 2023-09-17 11:33 | PTCARENOTE ---
VS obtained, assessment stable. Patient resting comfortably. Daughter at bedside.
[2023-09-17 11:57] LABS: Glucose - Point of Care 114 mg/dl (70-99)
[2023-09-17] MEDS: NSS IV (12:32)
[2023-09-17] MEDS: FERRLECIT 110 MG IV (13:58)
[2023-09-17 14:02] LABS: Glucose - Point of Care 99 mg/dl (70-99)
[2023-09-17 15:08] LABS: Glucose - Point of Care 203 mg/dl (70-99)
[2023-09-17] MEDS: NOVOLOG FLEXPEN 4 UNITS SC (15:42)
--- NOTE | 2023-09-17 16:00 | PTCARENOTE ---
VS obtained, assessment stable. Patient assisted to commode, voided w/out difficulty. Remains oob in chair perusing menu.
[2023-09-17 16:02] LABS: Glucose - Point of Care 165 mg/dl (70-99)
--- NOTE | 2023-09-17 16:52 | W.PN.CARDCBS ---
Today's Communication / Plan
-
Encouraged incentive spirometry
Wean insulin drip as blood sugars allow
Continue amiodarone load
EKG in a.m.
Impression / Plan
-
PCP: Virginia Barajas
Tobacco Classer: Dr. Sevilla
Impression:
Presents 09/10/2023 with new finding of left atrial mass
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
S/P Standard sternotomy with aortic and bicaval cannulation/Resection of left atrial tumor along with intra-atrial septum/ Bovine pericardial patch repair of iatrogenic ASD (2cm x 3cm), Dr. Kaufman, 09/16/23
ELAA (35 mm clip) by Dr. Kaufman, 09/16/23
Nonobstructive CAD by cath 09/10
Hypertension
Hyperlipidemia
Atrial tachycardia
PACs
Macular degeneration
Lumbar disc disease
Microcytic anemia -->Thalassemia
Echo 09/10/2023: EF 60% with mild concentric LVH. 4.0 x 4.5 cm left atrial mass most consistent with myxoma
Outpatient shelter monitor completed 08/13/2023: Predominantly sinus rhythm. 1162 episodes of atrial tachycardia, longest 2.8 minutes. Junctional escape beats, PAC ~4%, PVC 0.3%.
Cardiac catheterization 06/12/2023: no significant CAD, ventriculography not done
Plan:
-Large L atrial myxoma, S/P Standard sternotomy with aortic and bicaval cannulation/Resection of left atrial tumor along with intra-atrial septum/ Bovine pericardial patch repair of iatrogenic ASD (2cm x 3cm)/ ELAA (35 mm clip)/Inspection of right
and left ventricles by Dr. Kaufman, 09/16/23, pod#1
-Doing well on POD#1. Sitting up in chair. Notes mild incisional discomfort
-Still requiring insulin drip
-Hemodynamically stable
-Transfused 1 unit of blood on 09/17/2023; hemoglobin stable at 8.7
-Postop day 1 chest x-ray stable
-Continue to monitor renal function and electrolytes, currently stable with potassium of 4.9, magnesium 2.3, creatinine 0.8
-Continue low dose lopressor
-EKG 09/17/2023 normal sinus rhythm with nonspecific T wave abnormality. QTc 496 ms;
-Continues on amiodarone for brief episodes of SVT/atrial tachycardia. Continue to monitor QTc, Remains in sinus rhythm.
-Encourage incentive spirometry
HPI 09/10/2023: Patient is an 78-year-old female with past medical history significant for hypertension, hyperlipidemia,SVT/atrial tachycardia, lumbar disc disease, macular degeneration who presents to emergency department 09/10/2023 after she was
found to have left atrial appendage mass on outpatient echocardiogram 09/10/2023. Patient was initially seen in ED in April 2023 with cough, shortness of breath and was positive for influenza. She was noted to have SVT on EKG and spontaneously
converted to sinus rhythm. She was seen by outpatient cardiology in July 2023 and were a monitor which was completed 08/13/2023 which showed predominantly normal sinus rhythm with episodes of atrial tachycardia longest 2.8 minutes as well as
occasional PACs approximately 4% and rare PVCs. 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 Given these findings she was referred to emergency
department for evaluation. Patient reports she has dyspnea on exertion with activities such as walking up stairs. She denies having palpitations fast or irregular heartbeats, chest pain, shortness of breath at rest, orthopnea, PND, edema.
Progress Note - Tobacco Classer
Subjective
Date of Service: September 17, 2023
Patient seen and examined. Patient sitting up in chair. Reports that she is feeling well. Did have transient lightheadedness this morning prior to getting blood but feels better now. Some incisional pain otherwise denies chest pain or shortness
of breath.
Objective
Labs:
09/17/23 02:59
09/17/23 02:59
Labs
Hgb 8.7 g/dL (12.0-16.0) L 09/17/23 02:59
Hct 26.2 % (37.0-47.0) L 09/17/23 02:59
Plt Count 194 10^3/uL (130-400) 09/17/23 02:59
PT 18.2 Sec (11.4-14.6) H 09/16/23 18:13
INR 1.53 09/16/23 18:13
APTT 32.4 Sec (23.4-35.0) 09/16/23 18:13
Sodium 141 mmol/L (135-145) 09/17/23 02:59
Potassium 4.1 mmol/L (3.5-5.1) 09/17/23 02:59
BUN 24 mg/dl (7-17) H 09/17/23 02:59
Creatinine 0.8 mg/dL (0.6-1.0) 09/17/23 02:59
Glucose 113 mg/dl (70-99) H 09/17/23 02:59
Vital Signs and I&O:
Vital Signs
Temp Pulse Resp BP Pulse Ox
98.4 F 94 15 123/70 96
09/17/23 15:50 09/17/23 16:13 09/17/23 15:50 09/17/23 16:13 09/17/23 15:50
Vital Signs
Temp Pulse Resp BP Pulse Ox
98.4 F 94 15 123/70 96
09/17/23 15:50 09/17/23 16:13 09/17/23 15:50 09/17/23 16:13 09/17/23 15:50
Intake & Output
09/15/23 09/16/23 09/17/23 09/18/23
06:59 06:59 06:59 06:59
Intake Total 1624 / 1624 1174.1 / 1174.1 340.6 / 340.6 850.0 / 850.0
Output Total 35 / 35 600 / 600 360 / 360
Balance 1624 / 1624 1139.1 / 1139.1 -259.4 / -259.4 490.0 / 490.0
Physical Exam
Physical Exam
GEN: No distress, awake, Ox3; sitting up in chair
HEENT: supple, anicteric, mmm
LUNGS: Few scattered crackles at right base otherwise CTA, no wheezes/rales
CV: Reg, S1/S2, no murmur, rub or gallop
ABD: soft, BS+, NT/ND
EXT: No edema, clubbing or cyanosis
NEURO: Gross non-focal
SKIN: No rash, warm, dry, pink
[2023-09-17 18:01] LABS: Glucose - Point of Care 25 mg/dl (70-99)
[2023-09-17 18:02] LABS: Glucose - Point of Care 62 mg/dl (70-99)
[2023-09-17] MEDS: FLEXERIL 5 MG PO (18:06)
[2023-09-17] MEDS: DEXTROSE 50% SYRINGE 12.5 GRAMS IV (18:07)
[2023-09-17 18:20] LABS: Glucose - Point of Care 72 mg/dl (70-99)
[2023-09-17 20:30] LABS: Glucose - Point of Care 235 mg/dl (70-99)
[2023-09-17] MEDS: LOPRESSOR 25 MG PO (20:31)
--- NOTE | 2023-09-17 21:00 | PTCARENOTE ---
Pt received from krishna RN. Pt AAOx3. Pt JEFFERSON. Following commands appropriately. Pt assisted to bedside commode then repositioned into bed. Pt SR to sinus tach on the monitor. HR 90-100s. Temporary epicardial v-wire insulated. BP stable. Palpable
pulses. Trace edema. Pt on RA. POX 93-95%. Lung sounds diminished at the base. Deep breathing and IS encouraged. Mediastinal CTx2 to -20 suction, no airleak/tidaling/crepitus noted at this time. Abdomen soft/nontender. +BS. Denies nausea at this
time. Sternal incision approximated and JAVA FLEX DEVELOPER. Right IJ cordis CDI. PIVx1 CDI. Bedside blood glucose 235 - Pt asymptomatic - PA aware - See MAR. See worklist for full nursing assessment, VS, and interventions. Call whitney within reach.
[2023-09-17] MEDS: NOVOLOG FLEXPEN 1 UNITS SC (21:05)
[2023-09-17] MEDS: LIPITOR 20 MG PO (22:01)
[2023-09-18] VITALS (8 sets, daily range): BP systolic 108–132; BP diastolic 64–80; PULSE 97; O2SAT 94–95; BMI 29.0
[2023-09-18 00:18] LABS: Glucose - Point of Care 131 mg/dl (70-99)
--- NOTE | 2023-09-18 00:30 | PTCARENOTE ---
Previous assessment unchanged. Pt SR on the monitor. HR 80s-90. BP stable. RA. POX 94%. CT assessment unchanged from previous. All surgical sites stable. Bedside blood sugar 131. Denies pain at this time. Call whitney within reach.
[2023-09-18 04:18] LABS: Hematocrit 26.5 % (37.0-47.0); Hemoglobin 8.8 g/dL (12.0-16.0); Mean Corp Hgb Conc. 33.2 g/dL (33.0-37.0); Mean Corpuscular Hgb 21.5 pg (27.0-31.0); Mean Corpuscular Volume 64.6 fL (81.0-99.0); Platelet Count 166 10^3/uL (130-400); Red Cell Dist. Width 18.1 % (11.5-14.5); White Blood Cell Count 14.8 10^3/uL (4.8-10.8)
[2023-09-18 04:27] LABS: Blood Urea Nitrogen 22 mg/dl (7-17); Calcium 8.3 mg/dl (8.4-10.2); Carbon Dioxide 28 mmol/L (22-30); Chloride 103 mmol/L (98-107); Estimated Creatinine Clearance 63 ml/min; Glucose 114 mg/dl (70-99); Magnesium 2.2 mg/dl (1.6-2.3); Potassium 4.5 mmol/L (3.5-5.1); Sodium 135 mmol/L (135-145); eGFR > 60.00
--- NOTE | 2023-09-18 04:45 | PTCARENOTE ---
Pt bladder scanned for >700 mL urine. Pt voided on commode. Post void residual 555 mL. Attempted to straight cath w/ CTPA at the bedside. Straight cath attempt unsuccessful - unable to visualize urinary meatus. Pt then assisted back to the commode.
--- NOTE | 2023-09-18 05:05 | W.PN.CT ---
Today's Communication / Plan
-
-pod #2
-some urinary retention overnight, voiding small amounts - continue bladder scans. Difficult to straight cath d/t anatomy
-s/p 1 pRBC on 09/16. h/h 8.8/26.5 today (8.7/26.2 on 09/16)
-CT output: 2 meds 95/235 in 12/24 hrs
-current meds (ASA, Lipitor, Lopressor 25 bid, Amio, Protonix)
-encourage IS, OOB
Assessment / Plan
-
Assessment:
-S/P Standard sternotomy with aortic and bicaval cannulation/Resection of left atrial tumor along with intra-atrial septum/ Bovine pericardial patch repair of iatrogenic ASD (2cm x 3cm)/ ELAA (35 mm clip)/Inspection of right and left ventricles by
Dr. Kaufman, 09/16/23, pod#2
-Newly diagnosed left atrial intracardiac tumor
-Atrial tachycardia/SVT
-PACs/PVCs
-LVEF 55-60% per intraop CHRISTINE
-Hypertension
-Hyperlipidemia
-Anemia
-Macular degeneration
-Osteoarthritis/osteopenia
-S/P hernia repair
-S/P bilateral cataracts
-Remote hx of allergy to Sulfa (itching, rash)
-Acute postop blood loss/on chronic Anemia (stable without blood transfusion)
-Acute postop atelectasis
-Acute postop hypovolemia with subsequent hypervolemia
-Acute postop urinary retention
Discussed patient care with: Nursing
Subjective
Procedure
S/P Standard sternotomy with aortic and bicaval cannulation/Resection of left atrial tumor along with intra-atrial septum/ Bovine pericardial patch repair of iatrogenic ASD (2cm x 3cm)/ ELAA (35 mm clip)/Inspection of right and left ventricles by
Dr. Kaufman, 09/16/23,
-
Date of Service: September 18, 2023
Objective Data
-
Lab Results
09/18/23 03:46
09/18/23 03:46
PT 18.2 Sec (11.4-14.6) H 09/16/23 18:13
INR 1.53 09/16/23 18:13
APTT 32.4 Sec (23.4-35.0) 09/16/23 18:13
Vital Signs
Vital Signs
Temp Pulse Resp BP Pulse Ox
98 F 95 16 132/64 93
09/18/23 03:42 09/18/23 03:42 09/18/23 03:42 09/18/23 03:42 09/18/23 03:42
CT Intake/Output/Weight
09/17/23 09/17/23 09/18/23
06:59 18:59 06:59
Intake Total 301.0 / 340.6 1136.0 / 1226.0 90 / 1226.0
Output Total 550 / 600 390 / 635 245 / 635
Balance -249.0 / -259.4 746.0 / 591.0 -155 / 591.0
SaO2: 93
Physical Exam
-
General: Awake and AOx3
Cardiovascular: Regular rate & rhythm, No Murmurs and No Rub
Respiratory: Rales (at base)
Sternum: Stable
Incision: Clean, Dry and Intact
Extremities: Other (trace edema b/l, 2+ PT b/l)
Data Reviewed
-
Lab Results: Results Reviewed
Medications: Active Meds Reviewed
Chest X-Ray: Report Reviewed and Image Reviewed
ECG: Report Reviewed and Image Reviewed
[2023-09-18] MEDS: TYLENOL 1000 MG PO ×3 (06:19→20:49)
[2023-09-18 07:41] LABS: Glucose - Point of Care 163 mg/dl (70-99)
[2023-09-18] MEDS: LIDOCAINE 4% PATCH 1 PATCH TOPICAL (08:19)
[2023-09-18] MEDS: MAGNESIUM OXIDE 500 MG PO ×2 (08:19→20:46)
[2023-09-18] MEDS: LOPRESSOR 25 MG PO (08:19)
[2023-09-18] MEDS: BUMEX 2 MG IV (08:19)
[2023-09-18] MEDS: LOW STRENGTH ASPIRIN 81 MG PO (08:19)
[2023-09-18] MEDS: NEURONTIN 100 MG PO ×3 (08:20→20:48)
[2023-09-18] MEDS: PROTONIX 40 MG PO (08:20)
[2023-09-18] MEDS: OCUVITE SOFTGEL 1 CAP PO ×2 (08:20→20:47)
[2023-09-18] MEDS: SENOKOT-S 1 TABLET PO ×2 (08:20→20:48)
[2023-09-18] MEDS: PACERONE 200 MG PO ×3 (08:20→20:49)
[2023-09-18] MEDS: VITAMIN D3 (cholecalciferol) 25 MCG PO (08:20)
[2023-09-18] MEDS: NOVOLOG FLEXPEN-MODERATE RESISTANCE 1 UNITS SC (08:21)
[2023-09-18] MEDS: BACTROBAN 2% OINTMENT 1 APPLIC NASAL ×2 (08:21→20:50)
--- NOTE | 2023-09-18 08:33 | PTCARENOTE ---
Patient received from shift superintendent resting comfortably oob in chair, AAO X 3, states pain controlled at this time. NSR via cm, SaO2 @ 94% on RA. Mediastinal chest tubes x 2, Y-connected to one pleurevac, placed to -20cm suction w/no air leak noted.
Epicardial V-wire insulated to chest wall. All procedural sites stable. Patient updated to plan of care for the day, in agreement. See work list for full assessment and interventions performed.
--- NOTE | 2023-09-18 12:38 | PTCARENOTE ---
Patient worked w/CR, tolerated well. VS obtained, assessment stable. Chest tubes d/c'd as ordered. Patient assisted oob, ambulated to bathroom, care performed. Settled to chair for lunch, daughter at bedside.
[2023-09-18 12:49] LABS: Glucose - Point of Care 143 mg/dl (70-99)
[2023-09-18] MEDS: NOVOLOG FLEXPEN-MODERATE RESISTANCE SC ×2 (12:51→17:08)
[2023-09-18] MEDS: FERRLECIT 110 MG IV (13:36)
[2023-09-18] MEDS: NSS 500 IV (15:59)
--- NOTE | 2023-09-18 16:19 | PTCARENOTE ---
VS obtained, stable. Son at bedside for visit.
[2023-09-18 17:09] LABS: Glucose - Point of Care 133 mg/dl (70-99)
--- NOTE | 2023-09-18 17:42 | W.PN.CARDCBS ---
Today's Communication / Plan
-
doing well s/p myxoma
Impression / Plan
-
PCP: Virginia Barajas
Dry Cleaning Supervisor: Dr. Sevilla
Impression:
Presents 09/10/2023 with new finding of left atrial mass
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
S/P Standard sternotomy with aortic and bicaval cannulation/Resection of left atrial tumor along with intra-atrial septum/ Bovine pericardial patch repair of iatrogenic ASD (2cm x 3cm), Dr. Kaufman, 09/16/23
ELAA (35 mm clip) by Dr. Kaufman, 09/16/23
Nonobstructive CAD by cath 09/10
Hypertension
Hyperlipidemia
Atrial tachycardia
PACs
Macular degeneration
Lumbar disc disease
Microcytic anemia -->Thalassemia
Echo 09/10/2023: EF 60% with mild concentric LVH. 4.0 x 4.5 cm left atrial mass most consistent with myxoma
Outpatient ekg monitor tech completed 08/13/2023: Predominantly sinus rhythm. 1162 episodes of atrial tachycardia, longest 2.8 minutes. Junctional escape beats, PAC ~4%, PVC 0.3%.
Cardiac catheterization 06/12/2023: no significant CAD, ventriculography not done
Plan:
-Large L atrial myxoma, S/P Standard sternotomy with aortic and bicaval cannulation/Resection of left atrial tumor along with intra-atrial septum/ Bovine pericardial patch repair of iatrogenic ASD (2cm x 3cm)/ ELAA (35 mm clip)/Inspection of right
and left ventricles by Dr. Kaufman, 09/16/23, pod#2
-Doing well on POD#1. Sitting up in chair. Notes mild incisional discomfort
-Hemodynamically stable
-hemoglobin stable at 8.8
-Continue low dose lopressor
-EKG 09/17/2023 normal sinus rhythm with nonspecific T wave abnormality. QTc 496 ms;
-Continues on amiodarone for brief episodes of SVT/atrial tachycardia. Continue to monitor QTc, Remains in sinus rhythm.
-Encourage incentive spirometry
HPI 09/10/2023: Patient is an 78-year-old female with past medical history significant for hypertension, hyperlipidemia,SVT/atrial tachycardia, lumbar disc disease, macular degeneration who presents to emergency department 09/10/2023 after she was
found to have left atrial appendage mass on outpatient echocardiogram 09/10/2023. Patient was initially seen in ED in April 2023 with cough, shortness of breath and was positive for influenza. She was noted to have SVT on EKG and spontaneously
converted to sinus rhythm. She was seen by outpatient cardiology in July 2023 and were a monitor which was completed 08/13/2023 which showed predominantly normal sinus rhythm with episodes of atrial tachycardia longest 2.8 minutes as well as
occasional PACs approximately 4% and rare PVCs. 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 Given these findings she was referred to emergency
department for evaluation. Patient reports she has dyspnea on exertion with activities such as walking up stairs. She denies having palpitations fast or irregular heartbeats, chest pain, shortness of breath at rest, orthopnea, PND, edema.
Progress Note - Dry Cleaning Supervisor
Subjective
Date of Service: September 18, 2023
Feels well. Minimal pain.
Objective
Labs:
09/18/23 03:46
09/18/23 03:46
Labs
Hgb 8.8 g/dL (12.0-16.0) L 09/18/23 03:46
Hct 26.5 % (37.0-47.0) L 09/18/23 03:46
Plt Count 166 10^3/uL (130-400) 09/18/23 03:46
PT 18.2 Sec (11.4-14.6) H 09/16/23 18:13
INR 1.53 09/16/23 18:13
APTT 32.4 Sec (23.4-35.0) 09/16/23 18:13
Sodium 135 mmol/L (135-145) 09/18/23 03:46
Potassium 4.5 mmol/L (3.5-5.1) 09/18/23 03:46
BUN 22 mg/dl (7-17) H 09/18/23 03:46
Creatinine 0.7 mg/dL (0.6-1.0) 09/18/23 03:46
Glucose 114 mg/dl (70-99) H 09/18/23 03:46
Vital Signs and I&O:
Vital Signs
Temp Pulse Resp BP Pulse Ox
99.7 F 103 16 111/70 94
09/18/23 16:00 09/18/23 17:15 09/18/23 16:00 09/18/23 16:00 09/18/23 16:00
Vital Signs
Temp Pulse Resp BP Pulse Ox
99.7 F 103 16 111/70 94
09/18/23 16:00 09/18/23 17:15 09/18/23 16:00 09/18/23 16:00 09/18/23 16:00
Intake & Output
09/16/23 09/17/23 09/18/23 09/19/23
06:59 06:59 06:59 06:59
Intake Total 1174.1 / 1174.1 340.6 / 340.6 1226.0 / 1226.0 970 / 970
Output Total 35 / 35 600 / 600 1135 / 1135 2190 / 2190
Balance 1139.1 / 1139.1 -259.4 / -259.4 91.0 / 91.0 -1220 / -1220
Physical Exam
Physical Exam
GEN: No distress, awake, Ox3
HEENT: supple, anicteric, mmm
LUNGS: CTA, no wheezes/rales
CV: Reg, S1/S2, no murmur/rub
ABD: soft, BS+, NT/ND
EXT: No edema
NEURO: Gross non-focal
SKIN: No rash
[2023-09-18] MEDS: ROXICODONE 5 MG PO (20:47)
[2023-09-18] MEDS: LOPRESSOR 50 MG PO (20:48)
[2023-09-18] MEDS: LIPITOR 20 MG PO (20:49)
--- NOTE | 2023-09-18 21:00 | PTCARENOTE ---
Pt received from krishna RN. Pt AAOx3. Afebrile. SR on the monitor. HR 80s. Temporary epicardial V-wire insulated. BP stable. Palpable pulses throughout. Pt on RA. POX 93%. Lung sound diminished at the base. CT dressing CDI. IS and deep breathing
encouraged. Abdomen soft/nontender. +BS. Pt voiding yellow urine w/ 1 assist to the bathroom. Sternal incision approximated and TRACE EVIDENCE TECHNICIAN. Right IJ cordis CDI. Pt c/o pain - see MAR. See worklist for full nursing assessment, interventions, and VS. Call
whitney within reach.
[2023-09-19] VITALS (12 sets, daily range): BP systolic 100–132; BP diastolic 61–80; BMI 29.0
--- NOTE | 2023-09-19 00:30 | PTCARENOTE ---
Previous assessment unchanged. Pt SR on the monitor. HR 80s. BP stable. RA. No c/o pain at this time. Call whitney within reach.
[2023-09-19 03:52] LABS: Hematocrit 25.2 % (37.0-47.0); Hemoglobin 8.3 g/dL (12.0-16.0); Mean Corp Hgb Conc. 32.9 g/dL (33.0-37.0); Mean Corpuscular Hgb 21.3 pg (27.0-31.0); Mean Corpuscular Volume 64.8 fL (81.0-99.0); Mean Platelet Volume 10.9 fL (7.4-10.4); Platelet Count 168 10^3/uL (130-400); Red Blood Cell Count 3.89 10^6/uL (4.20-5.40); White Blood Cell Count 12.6 10^3/uL (4.8-10.8)
--- NOTE | 2023-09-19 04:15 | PTCARENOTE ---
Pt assisted OOB to void. Previous assessment unchanged. SR on the monitor. HR 80s. BP stable. RA. Denies pain at this time. CT dressing changed. Labs drawn and sent. call whitney within reach.
[2023-09-19 04:26] LABS: Blood Urea Nitrogen 23 mg/dl (7-17); Calcium 8.5 mg/dl (8.4-10.2); Carbon Dioxide 29 mmol/L (22-30); Chloride 98 mmol/L (98-107); Estimated Creatinine Clearance 64 ml/min; Glucose 113 mg/dl (70-99); Magnesium 2.3 mg/dl (1.6-2.3); Potassium 4.2 mmol/L (3.5-5.1); Sodium 132 mmol/L (135-145); eGFR > 60.00
--- NOTE | 2023-09-19 04:26 | W.PN.CT ---
Today's Communication / Plan
-
-pod #3
-no issues overnight
-diuresed well on 09/17 with 2 mg iv Bumex (UO 1000/3350 in 12/24 hrs)
-weaned off O2 - pOx 94% RA
-current meds (ASA, Lipitor, Lopressor 50 bid, Amio, Protonix)
-encourage IS, OOB
Assessment / Plan
-
Assessment:
-S/P Standard sternotomy with aortic and bicaval cannulation/Resection of left atrial tumor along with intra-atrial septum/ Bovine pericardial patch repair of iatrogenic ASD (2cm x 3cm)/ ELAA (35 mm clip)/Inspection of right and left ventricles by
Dr. Kaufman, 09/16/23, pod#3
-Newly diagnosed left atrial intracardiac tumor
-Atrial tachycardia/SVT
-PACs/PVCs
-LVEF 55-60% per intraop CHRISTINE
-Hypertension
-Hyperlipidemia
-Anemia
-Macular degeneration
-Osteoarthritis/osteopenia
-S/P hernia repair
-S/P bilateral cataracts
-Remote hx of allergy to Sulfa (itching, rash)
-Acute postop blood loss/on chronic Anemia (stable without blood transfusion)
-Acute postop atelectasis
-Acute postop hypovolemia with subsequent hypervolemia
-Acute postop urinary retention-resolved
-Acute postop hyponatremia
Discussed patient care with: Nursing and Care Team
Subjective
Procedure
S/P Standard sternotomy with aortic and bicaval cannulation/Resection of left atrial tumor along with intra-atrial septum/ Bovine pericardial patch repair of iatrogenic ASD (2cm x 3cm)/ ELAA (35 mm clip)/Inspection of right and left ventricles by
Dr. Kaufman, 09/16/23,
-
Date of Service: September 19, 2023
Objective Data
-
Lab Results
09/19/23 03:35
09/19/23 03:35
PT 18.2 Sec (11.4-14.6) H 09/16/23 18:13
INR 1.53 09/16/23 18:13
APTT 32.4 Sec (23.4-35.0) 09/16/23 18:13
Vital Signs
Vital Signs
Temp Pulse Resp BP Pulse Ox
98.8 F 97 16 132/61 94
09/19/23 03:41 09/19/23 03:41 09/19/23 03:41 09/19/23 03:41 09/19/23 03:41
CT Intake/Output/Weight
09/18/23 09/18/23 09/19/23
06:59 18:59 06:59
Intake Total 90 / 1226.0 980 / 1070 90 / 1070
Output Total 745 / 1135 2390 / 3390 1000 / 3390
Balance -655 / 91.0 -1410 / -2320 -910 / -2320
SaO2: 94
Physical Exam
-
General: Awake and AOx3
Cardiovascular: Regular rate & rhythm, No Murmurs and No Rub
Respiratory: Rales (at base)
Sternum: Stable
Incision: Clean, Dry and Intact
Extremities: Other (trace edema b/l, 2+ PT b/l)
Data Reviewed
-
Lab Results: Results Reviewed
Medications: Active Meds Reviewed
Chest X-Ray: Report Reviewed and Image Reviewed
ECG: Report Reviewed and Image Reviewed
[2023-09-19] MEDS: TYLENOL 1000 MG PO ×3 (06:38→22:33)
[2023-09-19] MEDS: NOVOLOG FLEXPEN-MODERATE RESISTANCE SC ×3 (07:41→18:45)
[2023-09-19] MEDS: LOPRESSOR 50 MG PO ×2 (07:55→20:54)
[2023-09-19] MEDS: VITAMIN D3 (cholecalciferol) 25 MCG PO (07:55)
[2023-09-19] MEDS: LOW STRENGTH ASPIRIN 81 MG PO (07:55)
[2023-09-19] MEDS: MAGNESIUM OXIDE 500 MG PO ×2 (07:55→20:54)
[2023-09-19] MEDS: NEURONTIN 100 MG PO ×3 (07:56→22:33)
[2023-09-19] MEDS: PACERONE 200 MG PO ×3 (07:56→22:33)
[2023-09-19] MEDS: PROTONIX 40 MG PO (07:58)
[2023-09-19] MEDS: OCUVITE SOFTGEL 1 CAP PO ×2 (07:58→20:54)
[2023-09-19] MEDS: LIDOCAINE 4% PATCH 1 PATCH TOPICAL (07:59)
[2023-09-19] MEDS: SENOKOT-S 1 TABLET PO ×2 (08:00→20:54)
[2023-09-19] MEDS: BACTROBAN 2% OINTMENT 1 APPLIC NASAL ×2 (08:01→20:54)
--- NOTE | 2023-09-19 08:14 | PTCARENOTE ---
Assumed pt care in AM. Pt OOB in chair at time of assessment. AAO x 4, c/o mild L-sided CP/discomfort with inspiration - alleviated with current medicinal regiment. Pt on RA, POX 93%, posterior BS diminished, IS & CDB encouraged, denies SOB. Pt in
NSR on monitor, heart tones normal, epicardial v-wire insulated, distal pulses palpable, trace edema present. Pt ambulated to BR with stand-by assistance. BS audible x 1, good appetite. Voided 400 mL clear/yellow. Sternal incision SOCIAL MEDIA EXECUTIVE, approximated,
surgical adhesive present. CT dressings intact. RIJ Cordis maintained with KVO. See MAR. Daughter at bedside and updated with plan of care.
[2023-09-19] MEDS: CORDARONE 103 MG IV (08:59)
--- NOTE | 2023-09-19 09:30 | PTCARENOTE ---
Pt having irregularity on telemetry. Pt in AF 100-120's with hemodynamic stability. EKG obtained. BLOWER MECHANIC made aware. Amiodarone bolus administered as ordered. Pt converted into NSR 80-90.
[2023-09-19] MEDS: BUMEX 2 MG IV (11:02)
[2023-09-19 11:16] LABS: Glucose - Point of Care 120 mg/dl (70-99)
--- NOTE | 2023-09-19 11:20 | PTCARENOTE ---
Pt rested for an hour in bed. Ambulated ~ [address] with stand-by assistance, tolerated activity well - remained NSR 80-90's. Pt remains sitting in chair. VSS. Productive cough - thick/sharp sputum. POX improving 95-96%. No other changes.
--- NOTE | 2023-09-19 11:46 | CM ---
CM following for DC planning needs.
Met w/ patient at bedside. Pt. reports that she is feeling well.
Reviewed CM role.
Reviewed anticipated DC plan for home w/ CT Transitional Care RN.
CM to follow.
[2023-09-19] MEDS: FERRLECIT 110 MG IV (14:18)
--- NOTE | 2023-09-19 16:24 | PTCARENOTE ---
Pt tolerating ambulating ~150 ft in hallway, intermittent SOB/discomfort due to chest pain - alleviated after scheduled Tylenol administration. Pt assisted into bed after activity. PIV placed in R forearm. [facility] cordis d/c without issue. No other
changes.
--- NOTE | 2023-09-19 17:19 | W.PN.CARDCBS ---
Today's Communication / Plan
-
Had some A-fib but now back in sinus rhythm.
Continue amiodarone/metoprolol
If has any more A-fib would likely consider long-term Eliquis
Impression / Plan
-
PCP: Virginia Barajas
Theology Teacher: Dr. Sevilla
Impression:
Presents 09/10/2023 with new finding of left atrial mass
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
S/P Standard sternotomy with aortic and bicaval cannulation/Resection of left atrial tumor along with intra-atrial septum/ Bovine pericardial patch repair of iatrogenic ASD (2cm x 3cm), Dr. Kaufman, 09/16/23
ELAA (35 mm clip) by Dr. Kaufman, 09/16/23
Nonobstructive CAD by cath 09/10
Hypertension
Hyperlipidemia
Atrial tachycardia
PACs
Macular degeneration
Lumbar disc disease
Microcytic anemia -->Thalassemia
Echo 09/10/2023: EF 60% with mild concentric LVH. 4.0 x 4.5 cm left atrial mass most consistent with myxoma
Outpatient cafeteria monitor completed 08/13/2023: Predominantly sinus rhythm. 1162 episodes of atrial tachycardia, longest 2.8 minutes. Junctional escape beats, PAC ~4%, PVC 0.3%.
Cardiac catheterization 06/12/2023: no significant CAD, ventriculography not done
Plan:
-Large L atrial myxoma, S/P Standard sternotomy with aortic and bicaval cannulation/Resection of left atrial tumor along with intra-atrial septum/ Bovine pericardial patch repair of iatrogenic ASD (2cm x 3cm)/ ELAA (35 mm clip)/Inspection of right
and left ventricles by Dr. Kaufman, 09/16/23, pod#3
-Hemodynamically stable
-hemoglobin stable at 8.8
-Continue low dose lopressor. Had brief atrial fibrillation this morning now back in sinus rhythm.
-Continues on amiodarone for brief episodes of SVT/atrial tachycardia. Continue to monitor QTc, Remains in sinus rhythm.
-Encourage incentive spirometry
-With history of SVT and now postoperative atrial fibrillation would likely fully anticoagulate long-term. Will discuss with CT surgery.
HPI 09/10/2023: Patient is an 78-year-old female with past medical history significant for hypertension, hyperlipidemia,SVT/atrial tachycardia, lumbar disc disease, macular degeneration who presents to emergency department 09/10/2023 after she was
found to have left atrial appendage mass on outpatient echocardiogram 09/10/2023. Patient was initially seen in ED in April 2023 with cough, shortness of breath and was positive for influenza. She was noted to have SVT on EKG and spontaneously
converted to sinus rhythm. She was seen by outpatient cardiology in July 2023 and were a monitor which was completed 08/13/2023 which showed predominantly normal sinus rhythm with episodes of atrial tachycardia longest 2.8 minutes as well as
occasional PACs approximately 4% and rare PVCs. 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 Given these findings she was referred to emergency
department for evaluation. Patient reports she has dyspnea on exertion with activities such as walking up stairs. She denies having palpitations fast or irregular heartbeats, chest pain, shortness of breath at rest, orthopnea, PND, edema.
Progress Note - Theology Teacher
Subjective
Date of Service: September 19, 2023
Denies chest pain or shortness of breath. Had some brief A-fib this morning.
Objective
Labs:
09/19/23 03:35
09/19/23 03:35
Labs
Hgb 8.3 g/dL (12.0-16.0) L 09/19/23 03:35
Hct 25.2 % (37.0-47.0) L 09/19/23 03:35
Plt Count 168 10^3/uL (130-400) 09/19/23 03:35
PT 18.2 Sec (11.4-14.6) H 09/16/23 18:13
INR 1.53 09/16/23 18:13
APTT 32.4 Sec (23.4-35.0) 09/16/23 18:13
Sodium 132 mmol/L (135-145) L 09/19/23 03:35
Potassium 4.2 mmol/L (3.5-5.1) 09/19/23 03:35
BUN 23 mg/dl (7-17) H 09/19/23 03:35
Creatinine 0.7 mg/dL (0.6-1.0) 09/19/23 03:35
Glucose 113 mg/dl (70-99) H 09/19/23 03:35
Vital Signs and I&O:
Vital Signs
Temp Pulse Resp BP Pulse Ox
98.4 F 94 18 120/78 96
09/19/23 11:20 09/19/23 14:00 09/19/23 11:20 09/19/23 11:07 09/19/23 11:20
Vital Signs
Temp Pulse Resp BP Pulse Ox
98.4 F 94 18 120/78 96
09/19/23 11:20 09/19/23 14:00 09/19/23 11:20 09/19/23 11:07 09/19/23 11:20
Intake & Output
09/17/23 09/18/23 09/19/23 09/20/23
06:59 06:59 06:59 06:59
Intake Total 340.6 / 340.6 1226.0 / 1226.0 1070 / 1070 1480 / 1480
Output Total 600 / 600 1135 / 1135 3590 / 3590 2100 / 2100
Balance -259.4 / -259.4 91.0 / 91.0 -2520 / -2520 -620 / -620
Physical Exam
Physical Exam
GEN: No distress, awake, Ox3
HEENT: supple, anicteric, mmm
LUNGS: CTA, no wheezes/rales
CV: Reg, S1/S2, no murmur
ABD: soft, BS+, NT/ND
EXT: No edema
NEURO: Gross non-focal
SKIN: sternotomy
[2023-09-19] MEDS: NSS IV (17:31)
--- NOTE | 2023-09-19 21:00 | PTCARENOTE ---
Patient received OOB in chair. Patient A+A+Ox3. No neurological deficits noted. Patient ambulating to bathroom with minimal assistance. No c/o headache, dizziness or lightheadedness. No s/s of respiratory distress. No c/o SOB. Room air. SaO2
94%. Chest tube dressing intact. Sinus Rhythm to Sinus Tachycardia. Heart rate 90-100. Epicardial Temporary Pacemaker - VVI - Insulated. Patient with no c/o chest pain, pressure or discomfort. Normoactive bowel sounds. No BM. No c/o nausea.
No vomiting. Voiding without difficulty. Trace ankle edema. Positive, palpable pulses. No c/o back or flank pain. Sternal incision - Intact - Surgical adhesive - Open to air. Assessment as documented.
[2023-09-19] MEDS: ROXICODONE 5 MG PO (22:33)
[2023-09-19] MEDS: LIPITOR 20 MG PO (22:33)
--- NOTE | 2023-09-19 23:30 | PTCARENOTE ---
Patient sleeping. No further changes from previous assessment.
[2023-09-20] VITALS (12 sets, daily range): BP systolic 88–121; BP diastolic 50–79; PULSE 85–88; O2SAT 95–96; BMI 28.6
--- NOTE | 2023-09-20 04:35 | W.PN.CT ---
Today's Communication / Plan
-
-pod #4
-no issues overnight
-has been diuresing well, wt is still up 5 lbs from preop, some rales at bases on exam- continue diuresis
-had very brief a-fib <10min long last night @ ~ 9pm (2nd episode)- resolved spontaneously
-pt c/o feeling weak overall - will ask PT/OT to evaluate. She will need to do steps before discharge
-will need pw cut prior to discharge
-discussed with daughter at bedside
-encourage IS, OOB, ambulate
Assessment / Plan
-
Assessment:
-S/P Standard sternotomy with aortic and bicaval cannulation/Resection of left atrial tumor along with intra-atrial septum/ Bovine pericardial patch repair of iatrogenic ASD (2cm x 3cm)/ ELAA (35 mm clip)/Inspection of right and left ventricles by
Dr. Kaufman, 09/16/23, pod#4
-Newly diagnosed left atrial intracardiac tumor
-Atrial tachycardia/SVT
-PACs/PVCs
-LVEF 55-60% per intraop CHRISTINE
-Hypertension
-Hyperlipidemia
-Anemia
-Macular degeneration
-Osteoarthritis/osteopenia
-S/P hernia repair
-S/P bilateral cataracts
-Remote hx of allergy to Sulfa (itching, rash)
-Acute postop blood loss/on chronic Anemia (stable without blood transfusion)
-Acute postop atelectasis
-Acute postop hypovolemia with subsequent hypervolemia
-Acute postop urinary retention-resolved
-Acute postop hyponatremia
-Acute postop paroxysmal a-fib x2 episodes on 09/18- tx with Amio bolus
Discussed patient care with: Nursing and Care Team
Subjective
Procedure
S/P Standard sternotomy with aortic and bicaval cannulation/Resection of left atrial tumor along with intra-atrial septum/ Bovine pericardial patch repair of iatrogenic ASD (2cm x 3cm)/ ELAA (35 mm clip)/Inspection of right and left ventricles by
Dr. Kaufman, 09/16/23,
-
Date of Service: September 20, 2023
Objective Data
-
PT 18.2 Sec (11.4-14.6) H 09/16/23 18:13
INR 1.53 09/16/23 18:13
APTT 32.4 Sec (23.4-35.0) 09/16/23 18:13
Vital Signs
Vital Signs
Temp Pulse Resp BP Pulse Ox
98.8 F 87 16 112/71 94
09/19/23 22:30 09/20/23 01:00 09/19/23 22:30 09/19/23 22:33 09/19/23 22:30
CT Intake/Output/Weight
09/19/23 09/19/23 09/20/23
06:59 18:59 06:59
Intake Total 90 / 1070 1580 / 1580
Output Total 1200 / 3590 2350 / 3125 775 / 3125
Balance -1110 / -2520 -770 / -1545 -775 / -1545
SaO2: 94
Physical Exam
-
General: Awake and AOx3
Cardiovascular: Regular rate & rhythm and No Murmurs
Respiratory: Rales (at bases)
Sternum: Stable
Incision: Clean, Dry and Intact
Extremities: Edema +1
Data Reviewed
-
Lab Results: Results Reviewed
Medications: Active Meds Reviewed
Chest X-Ray: Report Reviewed and Image Reviewed
ECG: Report Reviewed and Image Reviewed
[2023-09-20] MEDS: TYLENOL 1000 MG PO ×3 (06:12→22:17)
[2023-09-20 06:23] LABS: Hematocrit 27.8 % (37.0-47.0); Hemoglobin 8.9 g/dL (12.0-16.0); Mean Corpuscular Hgb 21.1 pg (27.0-31.0); Mean Platelet Volume 10.2 fL (7.4-10.4); Platelet Count 210 10^3/uL (130-400); Red Blood Cell Count 4.21 10^6/uL (4.20-5.40); Red Cell Dist. Width 19.9 % (11.5-14.5); White Blood Cell Count 10.7 10^3/uL (4.8-10.8)
--- NOTE | 2023-09-20 06:30 | PTCARENOTE ---
Patient A+A+Ox3. No neurological deficits noted. OOB to bathroom to void. Standing scale weight 75.6 kg. OOB in chair. Assessment/Interventions as documented.
[2023-09-20 06:47] LABS: Blood Urea Nitrogen 19 mg/dl (7-17); Carbon Dioxide 33 mmol/L (22-30); Estimated Creatinine Clearance 56 ml/min; Glucose 103 mg/dl (70-99); eGFR > 60.00
[2023-09-20 06:56] LABS: Calcium 8.6 mg/dl (8.4-10.2); Chloride 96 mmol/L (98-107); Magnesium 2.2 mg/dl (1.6-2.3); Potassium 3.6 mmol/L (3.5-5.1); Sodium 136 mmol/L (135-145)
[2023-09-20] MEDS: PROTONIX 40 MG PO (08:11)
[2023-09-20] MEDS: MAGNESIUM OXIDE 500 MG PO ×2 (08:11→19:42)
[2023-09-20] MEDS: OCUVITE SOFTGEL 1 CAP PO ×2 (08:11→19:42)
[2023-09-20] MEDS: VITAMIN D3 (cholecalciferol) 25 MCG PO (08:11)
[2023-09-20] MEDS: LOW STRENGTH ASPIRIN 81 MG PO (08:11)
[2023-09-20] MEDS: NEURONTIN 100 MG PO ×3 (08:11→22:17)
[2023-09-20] MEDS: LOPRESSOR 50 MG PO ×2 (08:11→19:42)
[2023-09-20] MEDS: SENOKOT-S 1 TABLET PO ×2 (08:11→19:42)
[2023-09-20] MEDS: PACERONE 200 MG PO ×3 (08:11→22:18)
[2023-09-20] MEDS: LIDOCAINE 4% PATCH TOPICAL (08:12)
[2023-09-20] MEDS: NOVOLOG FLEXPEN-MODERATE RESISTANCE SC ×3 (08:13→18:15)
[2023-09-20] MEDS: BACTROBAN 2% OINTMENT 1 APPLIC NASAL (08:13)
--- NOTE | 2023-09-20 08:23 | PTCARENOTE ---
assumed care of pt from previous shift RN, sinus rhythm on tele w HR 90, bp 101/58, + peripheral pulses, no edema, epicardial V wire insulated. Lungs diminished, pox 95% on RA. Coughing and deep breathing encouraged. +bs, tolerating PO intake. Voids
spontaneously. MSI approximated, CT sites intact. PIV flushes easily. Patient denies pain. Plan of care reviewed w the pt and questions encouraged.
--- NOTE | 2023-09-20 09:50 | PTCARENOTE ---
pacing wire cut as ordered. CT dressing removed, sites left EMERGENCY ROOM DOCTOR.
--- NOTE | 2023-09-20 10:34 | PTOTSP ---
pt currently demonstrates ability to complete simple ADLs, functional transfers, ambulation with supervision to no assistance. educated pt on sternal precautions and impact on ADLs, IADLs. pt reports she will have family support at home to assist as
needed. pt demonstrates good recall and application of precautions when completing simple ADLs. no acute OT needs identified at this time, will sign off.
[2023-09-20 13:05] LABS: Glucose - Point of Care 110 mg/dl (70-99)
--- NOTE | 2023-09-20 13:17 | PTCARENOTE ---
Assumed care of this patient in room 2254. Pt arrived stable, ambulated in spears to her room. PA and Lat xray scheduled to be completed shortly.
--- NOTE | 2023-09-20 13:33 | CM ---
Reviewed chart. Mrs. Hays was transferred to IVU. Met with Mrs. Hays to review discharge plans. She states she is feeling well and maybe able to go home soon. She states prior to admission she resides with her son -in-law and daughter in
a two story home with one step to enter. She states she has seventeen steps to get to bedroom/full bathroom. She states she has a powder room on the first floor. She states she has been ambulating. She ambulated 200 feet with supervision without
a device. She does not have any DME in the home. She states she has a prescription plan. She states her daughter and son-in-law bunker worker so they will be available to assist in her care if needed. We reviewed a home visit by the
Cardiothoracic Transitional Care Nurse. She is agreeable to a home visit. Medical work-up in progress. The discharge plan is to return home with her daughter and son-in-law with a home visit by the Cardiothoracic Transitional Care Nurse when
medically stable.
--- NOTE | 2023-09-20 13:36 | PTCARENOTE ---
Pt assessment completed, see documentation in medical record. Pt education initiated about ISB use, cough and deep breathing with the heart pillow, mobility, nutrition, pain management, sternal precautions and rest periods. Pt asked to demonstrate
ISB, and patient education completed to correct technique. Pt demonstrated understanding of education using the teach back method. Proper technique with the incentive spirometer will be reinforced, and patient instructed to use the ISB ten times per
hour (minimum). Medication education including medication side effects provided for all medications. Pt sitting in the chair and resting comfortably. Medication education will be reinforced throughout the day. IV site flushed and patent.
[2023-09-20] MEDS: NEURONTIN PO (14:25)
[2023-09-20] MEDS: PACERONE PO (14:26)
--- NOTE | 2023-09-20 15:58 | W.PN.CARDCBS ---
Addendum entered and electronically signed by Alber Stein MD 09/20/23 16:55:
I saw and examined the patient.
The Loan Interviewer's note was reviewed and I agree with the note.
Comment: Briefly, 78-year-old woman found to have left atrial myxoma on outpatient echo 09/10/2023 and subsequently underwent resection and left atrial appendage clip with Dr. Kaufman on 09/16/2023
Reports some incisional pain but overall seems to be doing well postoperatively
Has had paroxysms of atrial fibrillation on telemetry, will discuss with CT surgery the possibility of discharging on oral anticoagulation
Agree with amiodarone for rate control
Original Note:
Today's Communication / Plan
-
Continue to monitor on tele
Consider OAC given episodes of PAF
Replete K+
Enc IS
Anticipate d/c within next 24 hours
Impression / Plan
-
PCP: Virginia Barajas
Shrimp Peeling Machine Tender: Dr. Sevilla
Impression:
Presents 09/10/2023 with new finding of left atrial mass
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
S/P Standard sternotomy with aortic and bicaval cannulation/Resection of left atrial tumor along with intra-atrial septum/ Bovine pericardial patch repair of iatrogenic ASD (2cm x 3cm), Dr. Kaufman, 09/16/23
ELAA (35 mm clip) by Dr. Kaufman, 09/16/23
Nonobstructive CAD by cath 09/10
Hypertension
Hyperlipidemia
Atrial tachycardia
PACs
Macular degeneration
Lumbar disc disease
Microcytic anemia -->Thalassemia
Echo 09/20/2023: EF 50 to 55%. Abnormal paradoxical septal motion consistent with postoperative status. Mild MR. Intraventricular atrium is intact with no evidence of shunting by color-flow Doppler
Echo 09/10/2023: EF 60% with mild concentric LVH. 4.0 x 4.5 cm left atrial mass most consistent with myxoma
Outpatient monitor worker completed 08/13/2023: Predominantly sinus rhythm. 1162 episodes of atrial tachycardia, longest 2.8 minutes. Junctional escape beats, PAC ~4%, PVC 0.3%.
Cardiac catheterization 06/12/2023: no significant CAD, ventriculography not done
Plan:
-Large L atrial myxoma, S/P Standard sternotomy with aortic and bicaval cannulation/Resection of left atrial tumor along with intra-atrial septum/ Bovine pericardial patch repair of iatrogenic ASD (2cm x 3cm)/ ELAA (35 mm clip)/Inspection of right
and left ventricles by Dr. Kaufman, 09/16/23, pod#4
-Hemodynamically stable
-hemoglobin stable at 8.9; did got one unit of blood 09/17/23
-Continue Lopressor. Had 3 brief episodes of atrial fibrillation (first 6/6 in am and 2nd 6/6 in pm and again am of 09/19). All less than 10 minutes). Currently in sinus rhythm. Continue Amiodarone load.
-With history of SVT and now postoperative atrial fibrillation will likely need anticoagulation long-term. Will discuss with CT surgery.
-Continues on amiodarone for brief episodes of SVT/atrial tachycardia. Continue to monitor QTc, stable 388 ms. Repeat ECG in am
-Potassium 3.6 would replete
-Encourage incentive spirometry
-Seen and evaluated by PT/OT. No needs found
HPI 09/10/2023: Patient is an 78-year-old female with past medical history significant for hypertension, hyperlipidemia,SVT/atrial tachycardia, lumbar disc disease, macular degeneration who presents to emergency department 09/10/2023 after she was
found to have left atrial appendage mass on outpatient echocardiogram 09/10/2023. Patient was initially seen in ED in April 2023 with cough, shortness of breath and was positive for influenza. She was noted to have SVT on EKG and spontaneously
converted to sinus rhythm. She was seen by outpatient cardiology in July 2023 and were a monitor which was completed 08/13/2023 which showed predominantly normal sinus rhythm with episodes of atrial tachycardia longest 2.8 minutes as well as
occasional PACs approximately 4% and rare PVCs. 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 Given these findings she was referred to emergency
department for evaluation. Patient reports she has dyspnea on exertion with activities such as walking up stairs. She denies having palpitations fast or irregular heartbeats, chest pain, shortness of breath at rest, orthopnea, PND, edema.
Progress Note - Shrimp Peeling Machine Tender
Subjective
Date of Service: September 20, 2023
Patient seen and examined. Patient sitting comfortably in chair. Patient worked with physical therapy earlier and was found to have no concerns or needs.
Objective
Labs:
09/20/23 06:06
09/20/23 06:06
Labs
Hgb 8.9 g/dL (12.0-16.0) L 09/20/23 06:06
Hct 27.8 % (37.0-47.0) L 09/20/23 06:06
Plt Count 210 10^3/uL (130-400) D 09/20/23 06:06
PT 18.2 Sec (11.4-14.6) H 09/16/23 18:13
INR 1.53 09/16/23 18:13
APTT 32.4 Sec (23.4-35.0) 09/16/23 18:13
Sodium 136 mmol/L (135-145) 09/20/23 06:06
Potassium 3.6 mmol/L (3.5-5.1) 09/20/23 06:06
BUN 19 mg/dl (7-17) H 09/20/23 06:06
Creatinine 0.8 mg/dL (0.6-1.0) 09/20/23 06:06
Glucose 103 mg/dl (70-99) H 09/20/23 06:06
Vital Signs and I&O:
Vital Signs
Temp Pulse Resp BP Pulse Ox
98.2 F 90 16 116/78 95
09/20/23 08:00 09/20/23 13:00 09/20/23 08:00 09/20/23 12:43 09/20/23 08:29
Vital Signs
Temp Pulse Resp BP Pulse Ox
98.2 F 90 16 116/78 95
09/20/23 08:00 09/20/23 13:00 09/20/23 08:00 09/20/23 12:43 09/20/23 08:29
Intake & Output
09/18/23 09/19/23 09/20/23 09/21/23
06:59 06:59 06:59 06:59
Intake Total 1226.0 / 1226.0 1070 / 1070 1580 / 1580 50 / 50
Output Total 1135 / 1135 3590 / 3590 3325 / 3325
Balance 91.0 / 91.0 -2520 / -2520 -1745 / -1745 50 / 50
Physical Exam
Physical Exam
GEN: No distress, awake, Ox3; sitting up in chair
HEENT: supple, anicteric, mmm
LUNGS: Few scattered crackles at right base otherwise CTA, no wheezes/rales
CV: Reg, S1/S2, no murmur, rub or gallop
ABD: soft, BS+, NT/ND
EXT: No edema, clubbing or cyanosis
NEURO: Gross non-focal
SKIN: No rash, warm, dry, pink
[2023-09-20] MEDS: MILK OF MAGNESIA 30 ML PO ×2 (16:54→22:18)
[2023-09-20] MEDS: KCL 40 MEQ PO (16:55)
[2023-09-20] MEDS: NSS IV (17:03)
[2023-09-20 17:50] LABS: Glucose - Point of Care 180 mg/dl (70-99)
[2023-09-20] MEDS: DULCOLAX 10 MG RECTAL (20:10)
[2023-09-20] MEDS: LIPITOR 20 MG PO (22:17)
[2023-09-20 22:29] LABS: Glucose - Point of Care 148 mg/dl (70-99)
[2023-09-21 02:44] VITALS: BP 167/72
--- NOTE | 2023-09-21 03:21 | W.PN.CT ---
Addendum entered and electronically signed by Ritchie Ocasio MD 09/21/23 09:55:
I saw and examined the patient.
The PA's note was reviewed and I agree with the note.
Comment:
POD#5 s/p resection of LA mass; closure of ASD; ELAA
No issues
OOB/IS/ambulate
OK for D/C today - outpatient monitoring will be placed on Saturday
Original Note:
Today's Communication / Plan
-
-No major issues overnight. Hemodynamically and neurologically intact
-Postop PAF. No oral anticoagulation per Dr. Kaufman, instead prefers home with pvc monitor
-Cont. current meds (ASA, Lipitor, Toprol XL)
-TM 100.4 but asymptomatic, will check wbc and u/a
-Encourage use of IS
-OOB into chair/Ambulate
-D/C home with pvc monitor
Assessment / Plan
-
Assessment:
-S/P Standard sternotomy with aortic and bicaval cannulation/Resection of left atrial tumor along with intra-atrial septum/ Bovine pericardial patch repair of iatrogenic ASD (2cm x 3cm)/ ELAA (35 mm clip)/Inspection of right and left ventricles by
Dr. Kaufman, 09/16/23, pod#5
-Newly diagnosed left atrial intracardiac tumor
-Atrial tachycardia/SVT
-PACs/PVCs
-LVEF 55-60% per intraop CHRISTINE
-Hypertension
-Hyperlipidemia
-Anemia
-Macular degeneration
-Osteoarthritis/osteopenia
-S/P hernia repair
-S/P bilateral cataracts
-Remote hx of allergy to Sulfa (itching, rash)
-Acute postop blood loss/on chronic Anemia (stable without blood transfusion)
-Acute postop atelectasis
-Acute postop hypovolemia with subsequent hypervolemia
-Acute postop urinary retention-resolved
-Acute postop hyponatremia
-Acute postop paroxysmal a-fib x2 episodes on 09/18- tx with Amio bolus
Discussed patient care with: Cardiology, Nursing, Respiratory Therapy, Pharmacy and Care Team
Subjective
Procedure
S/P Standard sternotomy with aortic and bicaval cannulation/Resection of left atrial tumor along with intra-atrial septum/ Bovine pericardial patch repair of iatrogenic ASD (2cm x 3cm)/ ELAA (35 mm clip)/Inspection of right and left ventricles by
Dr. Kaufman, 09/16/23,
-
Date of Service: September 21, 2023
Pt offers no complaints, feels well
Objective Data
-
Lab Results
09/20/23 06:06
PT 18.2 Sec (11.4-14.6) H 09/16/23 18:13
INR 1.53 09/16/23 18:13
APTT 32.4 Sec (23.4-35.0) 09/16/23 18:13
Vital Signs
Vital Signs
Temp Pulse Resp BP Pulse Ox
98.9 F 99 18 113/70 95
09/20/23 22:53 09/20/23 22:19 09/20/23 22:53 09/20/23 22:19 09/20/23 22:53
CT Intake/Output/Weight
09/20/23 09/20/23 09/21/23
06:59 18:59 06:59
Intake Total 490 / 490
Output Total 975 / 3325
Balance -975 / -1745 490 / 490
SaO2: 95 (RA)
Physical Exam
-
General: Awake, Oriented and AOx3
Cardiovascular: Regular rate & rhythm, No Murmurs and No Rub
Sternum: Stable
Incision: Clean, Dry, Intact and Dressing Intact
Extremities: No Edema
Data Reviewed
-
Lab Results: Results Reviewed
Medications: Active Meds Reviewed
Chest X-Ray: Report Reviewed and Image Reviewed
ECG: Report Reviewed and Image Reviewed
[2023-09-21 03:32] LABS: Blood Urea Nitrogen 21 mg/dl (7-17); Calcium 8.9 mg/dl (8.4-10.2); Carbon Dioxide 27 mmol/L (22-30); Chloride 100 mmol/L (98-107); Estimated Creatinine Clearance 64 ml/min; Glucose 128 mg/dl (70-99); Potassium 4.8 mmol/L (3.5-5.1); Sodium 134 mmol/L (135-145); eGFR > 60.00
[2023-09-21 04:03] VITALS: BMI 29.1
--- NOTE | 2023-09-21 04:09 | PTCARENOTE ---
Pt received start of shift, HR SR/ST. Pt c/o discomfort due to not having BM. MOM and dulcolax suppository - see JUN. Pt managed two small liquid BMs. Pt states feels a little better. Pt w/ slight discomfort at incision site - 1 to 2 out of 10. Pt
adhering to sternal precautions. Pt denies any CP, SOB, or lightheadedness/dizziness at this time. Informed to notify RN if any changes, call whitney within reach.
When obtaining AM vitals, pt O2 noted to be 89-91%. encouraged deep breathing, O2 up to 95% RA.
[2023-09-21] MEDS: TYLENOL 1000 MG PO ×3 (05:34→22:35)
[2023-09-21] MEDS: ROXICODONE 5 MG PO (07:27)
[2023-09-21 08:18] LABS: Glucose - Point of Care 130 mg/dl (70-99)
[2023-09-21 08:19] VITALS: BP 104/66
[2023-09-21] MEDS: NOVOLOG FLEXPEN-MODERATE RESISTANCE SC ×3 (08:21→17:54)
[2023-09-21] MEDS: LIDOCAINE 4% PATCH 1 PATCH TOPICAL (08:52)
[2023-09-21] MEDS: PROTONIX 40 MG PO (08:53)
[2023-09-21] MEDS: LOW STRENGTH ASPIRIN 81 MG PO (08:53)
[2023-09-21] MEDS: OCUVITE SOFTGEL 1 CAP PO ×2 (08:53→19:58)
[2023-09-21] MEDS: PACERONE 200 MG PO ×3 (08:53→22:35)
[2023-09-21] MEDS: MAGNESIUM OXIDE 500 MG PO ×2 (08:53→19:58)
[2023-09-21] MEDS: SENOKOT-S 1 TABLET PO (08:53)
[2023-09-21] MEDS: NEURONTIN 100 MG PO ×3 (08:53→22:35)
[2023-09-21] MEDS: VITAMIN D3 (cholecalciferol) 25 MCG PO (08:53)
[2023-09-21] MEDS: FLEXERIL 5 MG PO (08:53)
[2023-09-21] MEDS: TOPROL XL 100 MG PO (08:54)
--- NOTE | 2023-09-21 09:11 | W.PN.CARDCBS ---
Addendum entered and electronically signed by Alber tSein MD 09/21/23 15:52:
I saw and examined the patient.
The Emergency Medical Technician Basic's note was reviewed and I agree with the note.
Comment: Briefly, 78-year-old woman incidentally identified as having left atrial myxoma and underwent resection with Dr. Kaufman on 09/16/2023
She has had some brief episodes of postop atrial fibrillation, would continue p.o. amiodarone for this
Holding off on oral anticoagulation per CT surgery
Monitor on telemetry while here and we will arrange for long-term outpatient monitoring and evaluation advisor to assess A-fib burden around the time of discharge
Original Note:
Today's Communication / Plan
-
Encourage incentive spirometer
Increase activity as tolerated
Hold on anticoagulation per CT surgery
Will arrange for patient to have outpatient monitor upon discharge
Hopeful discharge within 24 hours
Impression / Plan
-
PCP: Virginia Barajas
Cinder Dump Crane Operator: Dr. Sevilla
Impression:
Presents 09/10/2023 with new finding of left atrial mass
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
S/P Standard sternotomy with aortic and bicaval cannulation/Resection of left atrial tumor along with intra-atrial septum/ Bovine pericardial patch repair of iatrogenic ASD (2cm x 3cm), Dr. Kaufman, 09/16/23
ELAA (35 mm clip) by Dr. Kaufman, 09/16/23
Nonobstructive CAD by cath 09/10
Hypertension
Hyperlipidemia
Atrial tachycardia
PACs
Macular degeneration
Lumbar disc disease
Microcytic anemia -->Thalassemia
Echo 09/20/2023: EF 50 to 55%. Abnormal paradoxical septal motion consistent with postoperative status. Mild MR. Intraventricular atrium is intact with no evidence of shunting by color-flow Doppler
Echo 09/10/2023: EF 60% with mild concentric LVH. 4.0 x 4.5 cm left atrial mass most consistent with myxoma
Outpatient monitoring and evaluation advisor completed 08/13/2023: Predominantly sinus rhythm. 1162 episodes of atrial tachycardia, longest 2.8 minutes. Junctional escape beats, PAC ~4%, PVC 0.3%.
Cardiac catheterization 06/12/2023: no significant CAD, ventriculography not done
Plan:
-Large L atrial myxoma, S/P Standard sternotomy with aortic and bicaval cannulation/Resection of left atrial tumor along with intra-atrial septum/ Bovine pericardial patch repair of iatrogenic ASD (2cm x 3cm)/ ELAA (35 mm clip)/Inspection of right
and left ventricles by Dr. Kaufman, 09/16/23, pod#5
-Reports that she had a bad night. Lost balance and twisted her torso in off manner when trying to get her footing. Now chest is more sore.
-Also complaining of being constipated and has not had a BM since she has been here. Continue stool softener. Consider enema and/or MiraLAX if unable to have bowel movement. Try to avoid pain medication as it may worsen constipation
-Noted to have mild fever overnight, Tmax 100.4. Mild leukocytosis at 13.1 noted. Urine analysis pending. Suspect postop atelectasis
-hemoglobin improved to 9.5; did got one unit of blood 09/17/23
-Lopressor switched to Toprol 100 mg daily by CTS. BP has been running on the lower side. May need to consider dividing Toprol to 50 mg twice a day if blood pressure remains low and patient is symptomatic
-Had 3 brief episodes of atrial fibrillation (first 6/6 in am and 2nd 6/6 in pm and again am of 09/19). All less than 10 minutes. Currently in sinus rhythm. Continue Amiodarone load. Lopressor switched to Toprol 09/20
-With history of SVT and now postoperative atrial fibrillation may need to consider anticoagulation. Discussed with CTS they are recommending ASA 81 mg and not OAC with plans on sending home patient on monitor
-Continues on amiodarone for brief episodes of SVT/atrial tachycardia. Continue to monitor QTc, stable 388 ms. Repeat ECG today
-Encourage incentive spirometry
-Seen and evaluated by PT/OT. No needs found
Discussed plan with CT surgery, patient's daughter and patient.
HPI 09/10/2023: Patient is an 78-year-old female with past medical history significant for hypertension, hyperlipidemia,SVT/atrial tachycardia, lumbar disc disease, macular degeneration who presents to emergency department 09/10/2023 after she was
found to have left atrial appendage mass on outpatient echocardiogram 09/10/2023. Patient was initially seen in ED in April 2023 with cough, shortness of breath and was positive for influenza. She was noted to have SVT on EKG and spontaneously
converted to sinus rhythm. She was seen by outpatient cardiology in July 2023 and were a monitor which was completed 08/13/2023 which showed predominantly normal sinus rhythm with episodes of atrial tachycardia longest 2.8 minutes as well as
occasional PACs approximately 4% and rare PVCs. 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 Given these findings she was referred to emergency
department for evaluation. Patient reports she has dyspnea on exertion with activities such as walking up stairs. She denies having palpitations fast or irregular heartbeats, chest pain, shortness of breath at rest, orthopnea, PND, edema.
Progress Note - Cinder Dump Crane Operator
Subjective
Date of Service: September 21, 2023
Patient complaining of feeling more tired today. Had an incident last night where she lost her footing/felt unsteady and twisted her torso in a strange way. Now has more sternal chest discomfort.
Biggest complaint is ongoing constipation and inability to have bowel movement
Objective
Labs:
09/21/23 02:54
Labs
Hgb 8.9 g/dL (12.0-16.0) L 09/20/23 06:06
Hct 27.8 % (37.0-47.0) L 09/20/23 06:06
Plt Count 210 10^3/uL (130-400) D 09/20/23 06:06
PT 18.2 Sec (11.4-14.6) H 09/16/23 18:13
INR 1.53 09/16/23 18:13
APTT 32.4 Sec (23.4-35.0) 09/16/23 18:13
Sodium 134 mmol/L (135-145) L 09/21/23 02:54
Potassium 4.8 mmol/L (3.5-5.1) D 09/21/23 02:54
BUN 21 mg/dl (7-17) H 09/21/23 02:54
Creatinine 0.7 mg/dL (0.6-1.0) 09/21/23 02:54
Glucose 128 mg/dl (70-99) H 09/21/23 02:54
Vital Signs and I&O:
Vital Signs
Temp Pulse Resp BP Pulse Ox
98.6 F 110 16 104/66 94
09/21/23 08:23 09/21/23 08:54 09/21/23 08:23 09/21/23 08:54 09/21/23 08:23
Vital Signs
Temp Pulse Resp BP Pulse Ox
98.6 F 110 16 104/66 94
09/21/23 08:23 09/21/23 08:54 09/21/23 08:23 09/21/23 08:54 09/21/23 08:23
Intake & Output
09/19/23 09/20/23 09/21/23 09/22/23
06:59 06:59 06:59 06:59
Intake Total 1070 / 1070 1580 / 1580 490 / 490
Output Total 3590 / 3590 3325 / 3325
Balance -2520 / -2520 -1745 / -1745 490 / 490
Physical Exam
Physical Exam
GEN: No distress, awake, Ox3; sitting up in chair
HEENT: supple, anicteric, mmm
LUNGS: Few scattered crackles at right base otherwise CTA, no wheezes/rales
CV: Reg, S1/S2, no murmur, rub or gallop
Chest: Sternotomy stable without rocking or clicking.
ABD: soft, BS+, NT/ND
EXT: No edema, clubbing or cyanosis
NEURO: Gross non-focal
SKIN: No rash, warm, dry, pink
[2023-09-21 10:37] LABS: % Basophils 0.3 % (0-2); % Eosinophils 0.5 % (0-6); % Immature Granulocytes 0.6 % (0-0.5); % Lymphocytes 10.9 % (20.5-51.1); % Monocytes 6.5 % (1.7-9.3); % Neutrophils 81.2 % (42.2-75.2); Absolute Eosinophils 0.1 10^3/uL (0-0.7); Absolute Immature Granulocytes 0.1 10^3/uL (0-0.05); Absolute Lymphocytes 1.4 10^3/uL (1.2-3.4); Absolute Monocytes 0.9 10^3/uL (0.1-0.6); Absolute Neutrophils 10.6 10^3/uL (1.4-6.5); Hematocrit 29.5 % (37.0-47.0); Hemoglobin 9.5 g/dL (12.0-16.0); Mean Corp Hgb Conc. 32.2 g/dL (33.0-37.0); Mean Corpuscular Hgb 21.4 pg (27.0-31.0); Mean Corpuscular Volume 66.4 fL (81.0-99.0); Mean Platelet Volume 10.7 fL (7.4-10.4); Nucleated Red Blood Cells % 0.8 %; Platelet Count 313 10^3/uL (130-400); Red Blood Cell Count 4.44 10^6/uL (4.20-5.40); Red Cell Dist. Width 20.9 % (11.5-14.5); White Blood Cell Count 13.1 10^3/uL (4.8-10.8)
[2023-09-21 13:00] VITALS: BP 111/61
[2023-09-21 13:56] LABS: Glucose - Point of Care 138 mg/dl (70-99)
[2023-09-21] MEDS: NSS IV (16:16)
[2023-09-21] MEDS: PREPARATION H MAX STRENGTH PAIN RELIEF CREAM 1 APPLIC RECTAL (16:45)
[2023-09-21 16:57] VITALS: BP 116/67
[2023-09-21 18:10] LABS: Glucose - Point of Care 141 mg/dl (70-99)
[2023-09-21 19:56] VITALS: BP 96/70
[2023-09-21] MEDS: SENOKOT-S PO (19:58)
[2023-09-21 21:29] LABS: Glucose - Point of Care 126 mg/dl (70-99)
[2023-09-21 22:33] VITALS: BP 110/74
[2023-09-21] MEDS: LIPITOR 20 MG PO (22:35)
--- NOTE | 2023-09-21 23:30 | PTCARENOTE ---
Pt received start of shift, HR SR/ST. Pt OOB in chair. Pt ambulated x1 assist to bathroom. Hat placed in toilet for UA collection - sample tainted by liquid stools. Pt assisted back to chair. Pt states she feels much better after multiple bowel
movements throughout the day. Pt denies any CP, SOB, or lightheadedness/dizziness. Informed to notify RN if any changes, call whitney within reach.
--- NOTE | 2023-09-22 05:15 | W.PN.CT ---
Addendum entered and electronically signed by Ritchie Ocasio MD 09/22/23 09:17:
I saw and examined the patient.
The PA's note was reviewed and I agree with the note.
Comment:
D/C home today
monitoring and evaluation advisor to be applied on Saturday
Original Note:
Today's Communication / Plan
-
-No major issues overnight. Hemodynamically and neurologically intact
-Noted to have episodes of sinus tachycardia with ambulation overnight, but no a-fib
-Has had postop PAF. No oral anticoagulation per Dr. Kaufman, instead prefers home with case monitor
-Cont. current meds (ASA, Lipitor, Toprol XL)
-Encourage use of IS
-OOB into chair/Ambulate
-D/C home with case monitor
Assessment / Plan
-
Assessment:
-S/P Standard sternotomy with aortic and bicaval cannulation/Resection of left atrial tumor along with intra-atrial septum/ Bovine pericardial patch repair of iatrogenic ASD (2cm x 3cm)/ ELAA (35 mm clip)/Inspection of right and left ventricles by
Dr. Kaufman, 09/16/23, pod#6
-Newly diagnosed left atrial intracardiac tumor
-Atrial tachycardia/SVT
-PACs/PVCs
-LVEF 55-60% per intraop CHRISTINE
-Hypertension
-Hyperlipidemia
-Anemia
-Macular degeneration
-Osteoarthritis/osteopenia
-S/P hernia repair
-S/P bilateral cataracts
-Remote hx of allergy to Sulfa (itching, rash)
-Acute postop blood loss/on chronic Anemia (stable without blood transfusion)
-Acute postop atelectasis
-Acute postop hypovolemia with subsequent hypervolemia
-Acute postop urinary retention-resolved
-Acute postop hyponatremia
-Acute postop paroxysmal a-fib x2 episodes on 09/18- tx with Amio bolus
Discussed patient care with: Cardiology, Nursing, Respiratory Therapy, Pharmacy and Care Team
Subjective
Procedure
S/P Standard sternotomy with aortic and bicaval cannulation/Resection of left atrial tumor along with intra-atrial septum/ Bovine pericardial patch repair of iatrogenic ASD (2cm x 3cm)/ ELAA (35 mm clip)/Inspection of right and left ventricles by
Dr. Kaufman, 09/16/23,
-
Date of Service: September 22, 2023
Pt offers no complaints, feels well
Objective Data
-
Lab Results
09/21/23 02:54
PT 18.2 Sec (11.4-14.6) H 09/16/23 18:13
INR 1.53 09/16/23 18:13
APTT 32.4 Sec (23.4-35.0) 09/16/23 18:13
Vital Signs
Vital Signs
Temp Pulse Resp BP Pulse Ox
99 F 95 18 110/74 96
09/21/23 22:33 09/21/23 22:35 09/21/23 22:33 09/21/23 22:35 09/21/23 22:33
CT Intake/Output/Weight
09/21/23 09/21/23 09/22/23
06:59 18:59 06:59
Intake Total 480 / 480
Balance 480 / 480
SaO2: 96 (RA)
Physical Exam
-
General: Awake, Oriented and AOx3
Cardiovascular: Regular rate & rhythm, No Murmurs, No Rub and No Gallop
Respiratory: Clear
Sternum: Stable
Incision: Clean, Dry, Intact and Dressing Intact
Extremities: No Edema
Data Reviewed
-
Lab Results: Results Reviewed
Medications: Active Meds Reviewed
Chest X-Ray: Report Reviewed and Image Reviewed
ECG: Report Reviewed and Image Reviewed
[2023-09-22 05:20] VITALS: BP 140/84
[2023-09-22 05:51] VITALS: BMI 28.8
[2023-09-22 05:54] LABS: Hematocrit 27.8 % (37.0-47.0); Mean Corp Hgb Conc. 32.4 g/dL (33.0-37.0); Mean Corpuscular Hgb 21.5 pg (27.0-31.0); Mean Corpuscular Volume 66.3 fL (81.0-99.0); Mean Platelet Volume 10.4 fL (7.4-10.4); Platelet Count 300 10^3/uL (130-400); Red Blood Cell Count 4.19 10^6/uL (4.20-5.40); Red Cell Dist. Width 21.1 % (11.5-14.5); White Blood Cell Count 12.7 10^3/uL (4.8-10.8)
[2023-09-22] MEDS: TYLENOL 1000 MG PO ×2 (06:57→13:52)
[2023-09-22] MEDS: NOVOLOG FLEXPEN-MODERATE RESISTANCE SC ×2 (07:08→11:21)
[2023-09-22 07:14] VITALS: BP 113/73
[2023-09-22] MEDS: LOW STRENGTH ASPIRIN 81 MG PO (08:42)
[2023-09-22] MEDS: OCUVITE SOFTGEL 1 CAP PO (08:42)
[2023-09-22] MEDS: MAGNESIUM OXIDE 500 MG PO (08:42)
[2023-09-22] MEDS: NEURONTIN 100 MG PO (08:42)
[2023-09-22] MEDS: VITAMIN D3 (cholecalciferol) 25 MCG PO (08:42)
[2023-09-22] MEDS: PROTONIX 40 MG PO (08:43)
[2023-09-22] MEDS: TOPROL XL 100 MG PO (08:43)
[2023-09-22] MEDS: LIDOCAINE 4% PATCH 1 PATCH TOPICAL (08:43)
[2023-09-22] MEDS: PACERONE 200 MG PO (08:43)
[2023-09-22] MEDS: SENOKOT-S PO (08:51)
[2023-09-22 10:24] VITALS: BP 114/70
[2023-09-22 10:31] VITALS: BP 130/76
--- NOTE | 2023-09-22 12:18 | W.DCSUMMARY ---
Discharge Summary
Discharge Data
Date of Admission: 09/10/23
Date of Discharge: 09/22/23
Total time spent discharging patient (in min): 40
-
Pending Results: No
Hospital Course
Primary care physician:
Dr. Virginia Barajas MD.
Outpatient web methods developer:
Dr. Pilo Sevilla MD.
Inpatient consultants:
[facility]
Procedures:
1. Resection of left atrial tumor along with intra-atrial septum, and bovine pericardial patch repair of iatrogenic ASD (2cm x 3cm) by Dr. Juan Francisco Kaufman MD. on 09/16/23
Primary Diagnosis:
1. Left atrial intracardiac tumor with palpitations and evidence of flow velocity acceleration
2. Atrial tachycardia with premature atrial contractions and premature ventricular contractions
3. History of supraventricular tachycardia
Secondary Diagnoses:
1. Hypertension
2. Hyperlipidemia
3. Macular degeneration
4. Osteoarthritis/osteopenia
5. Lumbar disc disease
HPI:
Patient is an extremely pleasant 78-year-old female who had an outpatient echocardiogram and was found to have a very large left atrial mass attached to the intra-atrial septum. She is also having episodes of supraventricular tachycardia as well as
atrial tachycardia and premature ventricular contractions. Given the size of her mass and the risk of cerebral embolism, she was kept inpatient on a heparin infusion and offered surgical resection. CT surgery service saw her in consultation and
after discussion with attending physician the patient agreed and proceeded for the procedure described above.
Hospital course:
Patient tolerated the procedure well. Patient was transferred from the operating room to the cardiovascular intensive care unit where she underwent her postoperative recovery. Patient was on low-dose Levophed for pressor support and was
successfully extubated in routine fashion on postoperative day 0. The patient's postoperative course was notable for brief episode of postoperative A-fib on postoperative day #3.
Postoperative day 1 she was given 1 unit of packed red blood cells for postoperative acute blood loss anemia. Beta-blockade was resumed and later increased. Her Corado was removed, and she was tolerating low-dose baby aspirin. She was gently
diuresed with IV Bumex on postoperative day #2 and her beta-blockade was further increased. On postoperative day 3 patient had an episode of paroxysmal atrial fibrillation where she was given an amnio bolus and later converted to sinus rhythm. The
rest the patient's postoperative course was uneventful. Cordis was removed. Pacing wires were cut at the skin. Patient had a low-grade temperature of 100.4 which resolved with Tylenol postoperative day #5. On postoperative day #6 she continued
amiodarone 200 mg twice daily. Fever as well as white count improved. Patient was seen by attending physician and medically cleared to be discharged to home.
Patient will be discharged with amiodarone 200 mg twice daily due to her episode of paroxysmal A-fib. He was discussed with attending physician as well as cardiology, and was agreed upon that she would not be discharged with anticoagulation. Angie
[facility] JOSI will place a heart monitor on the patient 09/23/2023.
Home medication changes:
Please pay attention to the following medication changes:
Take Acetaminophen 650 mg Q4H PRN-mild pain, fever
Take Amiodarone 200 mg BID-post operative paroxysmal A-fib
Take Aspirin 81 mg daily-s/p left atrial myxoma resection
Take Atorvastatin 20 mg HS-HLD
Take Gabapentin 100 mg TID-nerve pain
Take Metoprolol succinate 100 mg daily-HTN, s/p left atrial myxoma resection
Take Oxycodone 5 mg Q6H XXX-cguaghwm-[id number] pain
Take Protonix 40 mg daily-GI prophylaxis
Take Sennosides-docusate 8.6-50 mg 1 tab BID-stool softener while using Oxycodone. Hold/stop for loose stools or diarrhea.
Please stop taking the following medications:
Bisoprolol-hydrochlorothiazide 2.5-6.25 daily. Discuss resuming at follow up with Cardiology Dr. Di MD.
Stop Simvastatin 40 mg HS and replace with Atorvastatin 20 mg HS due to contraindication with Amiodarone therapy.
Discharge Plan
-
Patient Disposition: Home (Routine Discharge)
Discharge Diagnosis/Procedures: Left atrial intracardiac tumor with palpitations and evidence of flow velocity acceleration
Atrial tachycardia with PACs and PVCs
Hypertension
Hyperlipidemia
Macular degeneration
Osteoarthritis/osteopenia
Status post resection of left atrial tumor along with intra�atrial septum, and bovine pericardial patch repair of iatrogenic atrial septal defect (2 cm x 3 cm).
Condition: Good
Diet: Low Cholesterol and Low Sodium
Activity: No strenuous activity
Driving Restrictions: Not until seen by your Dr
Bathing Restrictions: OK to Shower
Other Services: Cardiac Rehab
Specialty Instructions: Weigh Daily- Call MD for wt gain/loss 3 lbs overnight/5 lbs in 1 week
Activity Restrictions/Additional Instructions:
ACTIVITY:
-No strenuous activity: no heavy lifting, pushing, pulling anything over 15 pounds for one month
-continue to use stairs as tolerated
DRIVING RESTRICTIONS:
-No driving for one month or until approved by your surgeon
WOUND CARE:
-Shower daily. Use soap & water.
-No lotions, creams or powders on incision area.
DIET:
-continue a low fat/low cholesterol diet.
-IF you are diabetic, continue carb controlled diet.
CARDIAC REHAB:
-Please make appointment to start in 5-6 weeks with your local hospital program. (See Cardiac Rehabilitation Discharge Booklet).
SPECIALTY INSTRUCTIONS:
-Weigh yourself daily. Call your physician for any weight gain/loss of 3 lbs overnight or 5 lbs in one week.
-REPORT any clicking noise or uneven appearance of your sternum to your surgeon immediately.
-If you smoke, you are instructed to quit. The [employer] smoking hotline phone number is [phone]
Angie [facility] PA-C will be out on Saturday09/23/23 to apply heart monitor to you.
Referrals:
CT Transitional Care Nurse [Outside]
(
The Cardiothoracic Transitional Care Nurse will call you to set up a visit in 1-2 days.)
Mayra Maguire CRNP [Specified Professional Personl] - 11/04/23 3:20 pm
Virginia Barajas DO [Family Provider] -
Juan Francisco Kaufman MD [Active] - 10/23/23 2:45 pm
Additional Discharge Medication Instructions: Please pay attention to the following medication changes:
Take Acetaminophen 650 mg Q4H PRN-mild pain, fever
Take Amiodarone 200 mg BID-post operative paroxysmal A-fib
Take Aspirin 81 mg daily-s/p left atrial myxoma resection
Take Atorvastatin 20 mg HS-HLD
Take Gabapentin 100 mg TID-nerve pain
Take Metoprolol succinate 100 mg daily-HTN, s/p left atrial myxoma resection
Take Oxycodone 5 mg Q6H KXW-[id number]-mpnaxt pain
Take Protonix 40 mg daily-GI prophylaxis
Take Sennosides-docusate 8.6-50 mg 1 tab BID-stool softener while using Oxycodone. Hold/stop for loose stools or diarrhea.
Please stop taking the following medications:
Bisoprolol-hydrochlorothiazide 2.5-6.25 daily. Discuss resuming at follow up with Cardiology Dr. Di MD.
Stop Simvastatin 40 mg HS and replace with Atorvastatin 20 mg HS due to contraindication with Amiodarone therapy.
Prescriptions:
New
acetaminophen 325 mg Tablet
650 mg PO Q4HPRN PRN (Reason: mild pain,headache,temp >101F ) Qty: 0 0RF
aspirin [Children's Aspirin] 81 mg Tablet,Chewable
81 mg PO DAILY Qty: 0 0RF
amiodarone 200 mg tablet
200 mg PO BID Qty: 60 1RF
atorvastatin 20 mg Tablet
20 mg PO HS Qty: 30 1RF
pantoprazole 40 mg Tablet,Delayed Release (Dr/Ec)
40 mg PO DAILY Qty: 30 1RF
gabapentin 100 mg Capsule
100 mg PO TID Qty: 30 0RF
oxycodone 5 mg Tablet
5 mg PO .Q6H PRN PRN (Reason: moderate-severe pain) Qty: 28 0RF
Rx Instructions:
Ongoing pain control. Attending physician Dr. Ritchie Ocasio MD.
sennosides-docusate sodium [Stool Softener-Stimulant Laxat] 8.6-50 mg Tablet
1 tab PO Q12 Qty: 0 0RF
Rx Instructions:
Purchase over the counter.Use while taking narcotic pain medication.Stop/hold for loose stool/diarrhea
metoprolol succinate 100 mg Tablet Extended Release 24 Hr
100 mg PO DAILY Qty: 30 1RF
Continued
cholecalciferol (vitamin D3) [Vitamin D3] 25 mcg (1,000 unit) Tablet
25 mcg PO DAILY Qty: 0 0RF
PreserVision AREDS 2,148 mcg-113 mg-45 mg-17.4mg Tablet
1 tab PO BID Qty: 0 0RF
Discontinued
bisoprolol-hydrochlorothiazide 2.5-6.25 mg Tablet
1 tab PO DAILY
simvastatin [Zocor] 40 mg Tablet
40 mg PO HS
Care Plan Goals
Care Plan Goals:
Problem: Readiness for enhanced knowledge related to diagnosis and treatment plan
Goal: Understand your diagnosis and treatment plan needs, including medications if applicable.
Instructions: Know your diagnosis, underlying causes and treatment plan options, including medications if applicable. Consult with your health care team to learn about your diagnosis and treatment plan, including medications if applicable.
Discharge Date and Time
Print Language: KOREAN
[2023-09-22 12:32] VITALS: BP 114/70; BP 130/76; PULSE 97
--- NOTE | 2023-09-22 12:39 | W.[place]-PDMP ---
[place]-PDMP
-
Checked the [place]- Prescription Drug Monitoring Program website, no red flags identified; safe to proceed with prescription.
[2023-09-22 12:42] VITALS: BP 119/69
== END 2023-09-22 14:08 | disposition home or self-care (01) | DRG 229 ==
LOC: IVU 17:20
PROVIDERS: Anesthesiology; Clinical Nurse Specialist Acute Care; Internal Medicine Interventional Cardiology; Nurse Practitioner Primary Care; Physician Assistant Medical; ADMITTING PHYSICIAN Internal Medicine; ATTENDING PHYSICIAN Thoracic Surgery (Cardiothoracic Vascular Surgery); CONSULT PHYSICIAN Internal Medicine Cardiovascular Disease; CONSULT PHYSICIAN Internal Medicine Critical Care Medicine; EMERGENCY PHYSICIAN Emergency Medicine; FAMILY PHYSICIAN Family Medicine; OTHER PHYSICIAN Internal Medicine Hematology & Oncology
PROC: B2111ZZ Fluoroscopy of Multiple Coronary Arteries using Low Osmolar Contrast (ICD-10-PCS; 2023-09-11)
PROC: 4A023N7 Measurement of Cardiac Sampling and Pressure, Left Heart, Percutaneous Approach (ICD-10-PCS; 2023-09-11)
PROC: 02B70ZZ Excision of Left Atrium, Open Approach (ICD-10-PCS; 2023-09-16)
PROC: B24BZZ4 Ultrasonography of Heart with Aorta, Transesophageal (ICD-10-PCS; 2023-09-16)
PROC: 5A1221Z Performance of Cardiac Output, Continuous (ICD-10-PCS; 2023-09-16)
PROC: 02U508Z Supplement Atrial Septum with Zooplastic Tissue, Open Approach (ICD-10-PCS; 2023-09-16)
PROC: 02L70CK Occlusion of Left Atrial Appendage with Extraluminal Device, Open Approach (ICD-10-PCS; 2023-09-16)
PROC: 30233N1 Transfusion of Nonautologous Red Blood Cells into Peripheral Vein, Percutaneous Approach (ICD-10-PCS; 2023-09-17)
DX: D15.1 Benign neoplasm of heart (principal); I47.19 Other supraventricular tachycardia; I51.0 Cardiac septal defect, acquired; D62 Acute posthemorrhagic anemia; J98.11 Atelectasis; E87.1 Hypo-osmolality and hyponatremia; E78.00 Pure hypercholesterolemia, unspecified; I10 Essential (primary) hypertension; M51.36 Other intervertebral disc degeneration, lumbar region; M19.90 Unspecified osteoarthritis, unspecified site; H35.3230 Exudative age-related macular degeneration, bilateral, stage unspecified; D50.9 Iron deficiency anemia, unspecified; L63.9 Alopecia areata, unspecified; D56.9 Thalassemia, unspecified; I25.10 Atherosclerotic heart disease of native coronary artery without angina pectoris; M85.80 Other specified disorders of bone density and structure, unspecified site; I49.1 Atrial premature depolarization; I45.5 Other specified heart block; I48.0 Paroxysmal atrial fibrillation; R33.8 Other retention of urine; E86.1 Hypovolemia; E87.70 Fluid overload, unspecified; Z79.82 Long term (current) use of aspirin; Z79.899 Other long term (current) drug therapy
CPT/HCPCS: 88305; 88307; 88332; 93308; 70355; 71045; 71046; 71275; 80048; 80076; 81003; 81015; 82247; 82330; 82565; 82728; 82805; 82947; 82962; 83036; 83540; 83550; 83735; 84132; 84302; 84443; 84520; 85014; 85018; 85025; 85027; 85049; 85610; 85730; 86850; 86900; 86901; 86920; 88331; 88341; 88342; 93005; 93306; 93312; 93320; 93321; 93325; 93454; 93880; 94002; 94003; 96374; 97163; 97165; 99285; C1713; C1768; C1769; C1894; J0153; J2916; P9016; P9045; Q9967

== ENCOUNTER → 2023-10-03 07:13 | Outpatient (REF) | payer MEDICARE, OTHER, SELFPAY ==
[2023-10-03 09:36] LABS: % Basophils 0.5 % (0-2); % Eosinophils 10.1 % (0-6); % Immature Granulocytes 0.3 % (0-0.5); % Lymphocytes 22.1 % (20.5-51.1); % Monocytes 8.4 % (1.7-9.3); % Neutrophils 58.6 % (42.2-75.2); Absolute Eosinophils 0.8 10^3/uL (0-0.7); Absolute Lymphocytes 1.8 10^3/uL (1.2-3.4); Absolute Monocytes 0.7 10^3/uL (0.1-0.6); Absolute Neutrophils 4.7 10^3/uL (1.4-6.5); Hematocrit 29.7 % (37.0-47.0); Hemoglobin 9.2 g/dL (12.0-16.0); Mean Corpuscular Hgb 21.4 pg (27.0-31.0); Mean Corpuscular Volume 69.2 fL (81.0-99.0); Nucleated Red Blood Cells % 0 %; Platelet Count 344 10^3/uL (130-400); Red Blood Cell Count 4.29 10^6/uL (4.20-5.40); Red Cell Dist. Width 21.9 % (11.5-14.5); White Blood Cell Count 7.9 10^3/uL (4.8-10.8)
[2023-10-03 10:12] LABS: ALT (SGPT) 19 U/L (0-35); AST (SGOT) 27 U/L (14-36); Albumin 4.1 g/dl (3.5-5.0); Alkaline Phosphatase 91 U/L (38-126); Blood Urea Nitrogen 15 mg/dl (7-17); Calcium 9.8 mg/dl (8.4-10.2); Carbon Dioxide 26 mmol/L (22-30); Chloride 105 mmol/L (98-107); Glucose 91 mg/dl (70-99); HDL Cholesterol 68 mg/dl; Iron 74 ug/dl (37-170); LDL Cholesterol, Calculated 65 mg/dl; Potassium 4.1 mmol/L (3.5-5.1); Sodium 140 mmol/L (135-145); Total Cholesterol 154 mg/dl (50-199); Total Protein 6.9 g/dl (6.3-8.2); Triglyceride 107 mg/dl (10-149); Very Low Density Lipoprotein 21 mg/dl (0-30)
[2023-10-03 10:33] LABS: eGFR > 60.00
== END ==
LOC: HWLAB 07:13
PROVIDERS: ATTENDING PHYSICIAN Family Medicine
DX: D50.9 Iron deficiency anemia, unspecified (principal); Z00.00 Encounter for general adult medical examination without abnormal findings; I10 Essential (primary) hypertension; E78.00 Pure hypercholesterolemia, unspecified
CPT/HCPCS: 36415; 80053; 80061; 82728; 83540; 85025

== ENCOUNTER → 2023-12-18 07:58 | Outpatient (REF) | payer MEDICARE, OTHER, SELFPAY ==
[2023-12-18 10:05] LABS: % Basophils 1.1 % (0-2); % Eosinophils 7.9 % (0-6); % Immature Granulocytes 0.3 % (0-0.5); % Monocytes 8.3 % (1.7-9.3); % Neutrophils 36.4 % (42.2-75.2); Absolute Basophils 0.1 10^3/uL (0-0.2); Absolute Eosinophils 0.5 10^3/uL (0-0.7); Absolute Monocytes 0.5 10^3/uL (0.1-0.6); Absolute Neutrophils 2.3 10^3/uL (1.4-6.5); Hematocrit 37.1 % (37.0-47.0); Hemoglobin 11.8 g/dL (12.0-16.0); Mean Corp Hgb Conc. 31.8 g/dL (33.0-37.0); Mean Corpuscular Hgb 21.1 pg (27.0-31.0); Mean Corpuscular Volume 66.5 fL (81.0-99.0); Nucleated Red Blood Cells % 0.3 %; Platelet Count 204 10^3/uL (130-400); Red Blood Cell Count 5.58 10^6/uL (4.20-5.40); Red Cell Dist. Width 15.1 % (11.5-14.5); White Blood Cell Count 6.4 10^3/uL (4.8-10.8)
== END ==
LOC: HWLAB 07:58
PROVIDERS: ATTENDING PHYSICIAN Family Medicine
DX: D56.3 Thalassemia minor (principal)
CPT/HCPCS: 36415; 85025

== ENCOUNTER → 2024-01-03 08:41 | Outpatient (REF) | payer MEDICARE, OTHER, SELFPAY | LOC: HWWDC 08:41 | PROVIDERS: ATTENDING PHYSICIAN Family Medicine | DX: Z12.31 Encounter for screening mammogram for malignant neoplasm of breast (principal) | CPT/HCPCS: 77063; 77067 ==

== ENCOUNTER 2024-01-31 18:07 | Emergency (ER) | payer MEDICARE, OTHER, SELFPAY ==
[2024-01-31 18:17] VITALS: BP 164/113
[2024-01-31 19:14] LABS: ALT (SGPT) 22 U/L (0-35); AST (SGOT) 34 U/L (14-36); Albumin 4.6 g/dl (3.5-5.0); Alkaline Phosphatase 59 U/L (38-126); Blood Urea Nitrogen 26 mg/dl (7-17); Calcium 9.4 mg/dl (8.4-10.2); Carbon Dioxide 27 mmol/L (22-30); Chloride 101 mmol/L (98-107); Glucose 128 mg/dl (70-99); Potassium 4.7 mmol/L (3.5-5.1); Sodium 138 mmol/L (135-145); Total Bilirubin 0.9 mg/dl (0.2-1.3); Total Protein 7.3 g/dl (6.3-8.2); eGFR 56.95
[2024-01-31 19:23] LABS: % Eosinophils 7.3 % (0-6); % Immature Granulocytes 0.5 % (0-0.5); % Lymphocytes 25.9 % (20.5-51.1); % Monocytes 6.6 % (1.7-9.3); % Neutrophils 58.7 % (42.2-75.2); Absolute Basophils 0.1 10^3/uL (0-0.2); Absolute Eosinophils 0.6 10^3/uL (0-0.7); Absolute Lymphocytes 2.2 10^3/uL (1.2-3.4); Absolute Monocytes 0.6 10^3/uL (0.1-0.6); Absolute Neutrophils 4.9 10^3/uL (1.4-6.5); Hematocrit 36.5 % (37.0-47.0); Hemoglobin 11.5 g/dL (12.0-16.0); Mean Corp Hgb Conc. 31.5 g/dL (33.0-37.0); Mean Corpuscular Hgb 19.9 pg (27.0-31.0); Mean Corpuscular Volume 63.1 fL (81.0-99.0); Nucleated Red Blood Cells % 0 %; Platelet Count 187 10^3/uL (130-400); Red Blood Cell Count 5.78 10^6/uL (4.20-5.40); Red Cell Dist. Width 17.7 % (11.5-14.5); White Blood Cell Count 8.3 10^3/uL (4.8-10.8)
[2024-01-31 19:30] LABS: Urine Albumin Negative (Neg - Trace); Urine Bilirubin Negative (Negative); Urine Character Clear (Clear); Urine Color Yellow; Urine Glucose Negative (Negative); Urine Ketone Negative (Negative); Urine Leukocyte Trace (Negative); Urine Nitrite Negative (Negative); Urine Occult Blood Trace (Negative); Urine Specific Gravity 1.025 (<1.030); Urine Urobilinogen Negative (Neg - 1+)
[2024-01-31 19:44] LABS: Urine Red Blood Cell 0-2 /HPF (0-2); Urine White Cell 0-2 /HPF (0-5)
[2024-01-31 19:45] LABS: Lipase 131 U/L (23-300)
[2024-01-31 21:16] VITALS: BMI 30.2
[2024-01-31 21:30] VITALS: BP 171/95; BP 174/102
[2024-01-31 22:00] VITALS: BP 165/92
--- NOTE | 2024-01-31 22:52 | ED.GENMED ---
History of Present Illness
General
Chief Complaint: Abdominal Pain
Source: patient
Time Seen by Provider: 01/31/24 21:11
History of Present Illness
History of Present Illness:
78-year-old female who presents with pain in the left lower abdomen just above the groin. She does report history of hernia in this area. The patient does admit she has been straining on the toilet recently. She also had some increased belching
but no vomiting. No fevers. No urinary symptoms.
Past History
Past History
ED Past Medical History: HTN and Hypercholesterolemia
ED Past Surgical History: None
Social History
Tobacco: Non-smoker
Personal:
Living: with family
Phy Exam
Physical Exam
Physical Exam:
CONSTITUTIONAL Patient alert and oriented to person, place and time. Well-appearing. Vital signs reviewed.
HEAD atraumatic, normocephalic.
EYES eyelids normal to inspection, Extraocular muscles intact, Conjunctiva normal, Sclera normal.
NECK normal range of motion, Trachea midline, no jugular venous distention.
RESPIRATORY CHEST No respiratory distress noted, Chest expansion equal
ABDOMEN left lower abdominal hernia palpated during exam. The hernia was reduced during exam the patient feels better.
BACK normal inspection, no obvious deformities
UPPER EXTREMITY range of motion normal, Motor strength normal, no cyanosis, no edema.
LOWER EXTREMITY range of motion normal, Motor strength normal, no cyanosis, no edema.
NEURO Speech normal, No focal motor deficits, Anil coma scale 15, Memory normal, Cranial Nerves intact to screening exam.
SKIN skin warm, dry, and normal in color.
PSYCHIATRIC patient oriented to person place and time, Normal affect.
Course
Orders/Labs/Results
Orders:
Orders
01/31/24 18:17
IV Insert/Care/Rem.- Treatment PRN
01/31/24 18:40
Complete Blood Count/With Diff Urgent
Comprehensive Metabolic Panel Urgent
Lipase Urgent
01/31/24 19:00
Urinalysis Reflex To Culture Urgent
Date Specimen was Collected: 01/31/24
Time Specimen was Collected: 18:17
Urine Microscopic Reflex Cult Urgent
Abnormal Lab Results
01/31/24 01/31/24
18:40 19:00
RBC 5.78 H 10^6/uL
(4.20-5.40)
Hgb 11.5 L g/dL
(12.0-16.0)
Hct 36.5 L %
(37.0-47.0)
MCV 63.1 L fL
(81.0-99.0)
MCH 19.9 L pg
(27.0-31.0)
MCHC 31.5 L g/dL
(33.0-37.0)
RDW 17.7 H %
(11.5-14.5)
Eosinophils % 7.3 H %
(0-6)
BUN 26 H mg/dl
(7-17)
Glucose 128 H mg/dl
(70-99)
Ur Occult Blood Reflex Trace A
(Negative)
Leukocyte Esterase Rfl Trace A
(Negative)
01/31/24 18:40
01/31/24 18:40
Vital Signs
Initial and Last Documented VS:
Initial Vital Signs
Temp Pulse Resp BP Pulse Ox
98.1 F 100 17 164/113 97
01/31/24 18:17 01/31/24 18:17 01/31/24 18:17 01/31/24 18:17 01/31/24 18:17
Last Documented Vital Signs
Temp Pulse Resp BP Pulse Ox
98.1 F 100 17 165/92 94
01/31/24 18:17 01/31/24 18:17 01/31/24 18:17 01/31/24 22:00 01/31/24 22:30
MDM/Problems Addressed
MDM/Problems Addressed:
Left-sided abdominal hernia
*Pulse Oximetry
Patient hypoxic: no
*Critical Care Note
Total Time (30-74mins, 75-104mins- exclusive of procedures): Not Applicable
Data Reviewed
Source: patient and family
Further Testing Considered But Not Given:
Consider CT imaging but I was able to reduce the hernia
Patient Management
Escalation/DeEscalation of care consider admission/obs:
Hernia reduced and patient observed. She now feels much better and all symptoms have resolved. Okay for discharge and outpatient follow-up with surgery
ED Attending Note
-
Portions of this chart may have been created with voice recognition software.� Occasional wrong word or��sound alike� substitutions may have occurred due to the inherent limitations of voice recognition software.
Discharge Plan
Departure
Patient Disposition: Home (Routine Discharge)
Date of Disposition: 01/31/24
Time of Disposition: 22:53
Patient with high blood pressure during this ER visit?: Yes
Discharge Problem:
Hernia
Instructions: Groin Hernia (DC), BLOOD PRESSURE
Prescriptions:
No Action
acetaminophen 325 mg Tablet
650 mg PO Q4HPRN PRN (Reason: mild pain,headache,temp >101F ) Qty: 0 0RF
aspirin [Children's Aspirin] 81 mg Tablet,Chewable
81 mg PO DAILY Qty: 0 0RF
cholecalciferol (vitamin D3) [Vitamin D3] 25 mcg (1,000 unit) Tablet
25 mcg PO DAILY Qty: 0 0RF
PreserVision AREDS 2,148 mcg-113 mg-45 mg-17.4mg Tablet
1 tab PO BID Qty: 0 0RF
atorvastatin 20 mg Tablet
20 mg PO HS Qty: 30 1RF
metoprolol succinate 100 mg Tablet Extended Release 24 Hr
100 mg PO DAILY Qty: 30 1RF
Referrals:
Linson,John, MD [Active] -
Virginia Barajas DO [Family Provider] -
Activity Restrictions/Additional Instructions:
Please see your doctor or surgeon in the next 1 week for follow-up and reevaluation. Please avoid lifting anything over 15 pounds and please avoid straining. Return immediately for vomiting, worsening pain, abdominal pain, fevers or any other
concerns.
Interventions
Interventions:
*Risk Screen - Suicide Last Done: 01/31/24 18:17
*General Assessment Last Done: 01/31/24 21:16
*Neglect/Abuse Screening Last Done: 01/31/24 21:16
ED- Fall Risk Assessment Last Done: 01/31/24 21:16
*ED COVID-19 Vaccine History Last Done: 01/31/24 21:16
*Nursing Disposition Last Done: 01/31/24 23:05
CN-Ydehlv-Jjtokmggjz Assessment Last Done: 01/31/24 21:25
Discharge Date and Time
Discharge Date/Time: 01/31/24 23:05
Print Language: LIBERIAN
== END 2024-01-31 23:05 | disposition home or self-care (01) ==
LOC: EMR 18:07
PROVIDERS: Emergency Medicine; EMERGENCY PHYSICIAN Emergency Medicine; FAMILY PHYSICIAN Family Medicine
DX: K46.9 Unspecified abdominal hernia without obstruction or gangrene (principal); I10 Essential (primary) hypertension; E78.00 Pure hypercholesterolemia, unspecified
CPT/HCPCS: 99283; 80053; 81003; 81015; 83690; 85025

== ENCOUNTER 2024-04-08 05:02 | Inpatient (IN) | payer MEDICARE, OTHER, SELFPAY ==
[2024-04-07 23:29] VITALS: BP 184/118
[2024-04-08] VITALS: BP 160/104
--- NOTE | 2024-04-08 00:52 | ED.GENMED ---
History of Present Illness
General
Chief Complaint: Abdominal Pain
Source: patient
Exam Limitations: none
Time Seen by Provider: 04/08/24 00:11
Nursing documentation reviewed up to this point in time: agreed with
History of Present Illness
History of Present Illness:
The patient is an 78-year-old female with a past medical history of abdominal hernias. Patient reports that she coughed about an hour prior to arrival and feels as though her left inguinal hernia popped out. Patient reports she has been seen in
the ED for this in the past and they have been able to push the hernia back in. Patient denies nausea and vomiting.
Past History
Past History
ED Past Medical History: HTN and Hypercholesterolemia
ED Past Surgical History: Other
Social History
Tobacco: Non-smoker
Alcohol: None
Drug: None
Personal:
Living: with family
Employment: Other
Family History
Family History: Other
Review of Systems
Review of Systems
Allergies reviewed?: Yes
All Other Systems: ROS reviewed and negative except as documented in HPI and ROS
Constitutional: Reports no symptoms
EENT: Reports no symptoms
Respiratory: Reports no symptoms
Cardiac: Reports no symptoms
ABD/GI: Reports abdominal pain
: Reports no symptoms
Musculoskeletal: Reports no symptoms
Skin: Reports no symptoms
Neurological: Reports no symptoms
Endocrine: Reports no symptoms
Hematologic/Lymphatic: Reports no symptoms
Psychiatric: Reports no symptoms
Phy Exam
Physical Exam
Physical Exam:
Physical Exam
General: no apparent distress, not acutely ill
Neck: supple. no meningeal signs. normal psoterior pharynx
Heart: s1/s2 regular rate and rhythm,
Lungs: no acute respiratory distress. clear bilaterally
Abdomen: Normal bowel sounds. Abdomen is soft throughout. Possible firm left inguinal hernia that I cannot reduce
Neuro: alert and oriented. no focal neurological deficits
Skin: no rash
Psychiatric: well kept. interactive and cooperative
Extremities: no edema. no calf tenderness. negative homans. good distal pulses
Course
Orders/Labs/Results
Orders:
Orders
04/08/24 00:44
CT Abd/pelvis W Iv Cont Urgent
Comment:
Reason For Exam: Left inguinal hernia pain, left groin pain
04/08/24 00:58
Complete Blood Count/With Diff Urgent
Lactic Acid Urgent
04/08/24 01:26
Comprehensive Metabolic Panel Urgent
04/08/24 03:17
0.9% Sodium Chloride 1000 ml [Nss] 1,000 ml IV BOLUS
Abnormal Lab Results
04/08/24 04/08/24
00:58 01:26
RBC 5.54 H 10^6/uL
(4.20-5.40)
Hgb 11.4 L g/dL
(12.0-16.0)
Hct 36.2 L %
(37.0-47.0)
MCV 65.3 L fL
(81.0-99.0)
MCH 20.6 L pg
(27.0-31.0)
MCHC 31.5 L g/dL
(33.0-37.0)
RDW 16.6 H %
(11.5-14.5)
Abs Immat Gran (auto) 0.1 H 10^3/uL
(0-0.05)
Absolute Monos (auto) 0.9 H 10^3/uL
(0.1-0.6)
Immature Gran % 1.4 H %
(0-0.5)
Monocytes % 10.6 H %
(1.7-9.3)
Eosinophils % 6.5 H %
(0-6)
BUN 27 H mg/dl
(7-17)
Glucose 124 H mg/dl
(70-99)
04/08/24 00:58
04/08/24 01:26
Vital Signs
Initial and Last Documented VS:
Initial Vital Signs
Temp Pulse Resp BP Pulse Ox
98.4 F 98 24 184/118 98
04/07/24 23:29 04/07/24 23:29 04/07/24 23:29 04/07/24 23:29 04/07/24 23:29
Last Documented Vital Signs
Temp Pulse Resp BP Pulse Ox
98.4 F 91 18 160/104 95
04/07/24 23:29 04/08/24 00:00 04/08/24 00:00 04/08/24 00:00 04/08/24 00:00
MDM/Problems Addressed
Differential Diagnosis Includes:
Incarcerated hernia, bowel obstruction,
MDM/Problems Addressed:
Patient presents with acute abdominal pain
Chronic conditions affecting care: Previous abdomnial surgery
Acute Exacerbation and/or Progression of Chronic Illness: Previous abdomnial surgery
*Radiology
Radiology exam reviewed: radiology read reviewed
*Pulse Oximetry
Patient hypoxic: no
*EKG
Interpreted by ED Provider?: NA
*Histologic Technician Interpretation
Rate: normal
Interpretation: normal
Rhythm: sinus
*Critical Care Note
Total Time (30-74mins, 75-104mins- exclusive of procedures): Not Applicable
Data Reviewed
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
Source: patient and family
Patient Management
Social determinants of health affecting care: Living situation and Strong social support
Discussion with other providers: Hospitalist and Other (Dr. Oh, on-call for general surgery)
Update Note
Update Note:
At 1:30 PM I manually tried to reduce patient's left inguinal hernia. It was very firm to the touch and did not seem to reduce completely. Decision made to order a CT with IV contrast.
ED Attending Note
-
Portions of this chart may have been created with voice recognition software.� Occasional wrong word or��sound alike� substitutions may have occurred due to the inherent limitations of voice recognition software.
Discharge Plan
Departure
Patient Disposition: Admit
Date of Disposition: 04/08/24
Time of Disposition: 03:15
Admit to: Med/Surg
Presentation/result/management discussed w/ accepting MD/DO: Hospitalist
Patient with high blood pressure during this ER visit?: Yes
Condition: Fair
Covid-19: Not Applicable
Discharge Problem:
Incarcerated left inguinal hernia, Small bowel obstruction due to hernia
Prescriptions:
No Action
acetaminophen 325 mg Tablet
650 mg PO Q4HPRN PRN (Reason: mild pain,headache,temp >101F ) Qty: 0 0RF
aspirin [Children's Aspirin] 81 mg Tablet,Chewable
81 mg PO DAILY Qty: 0 0RF
cholecalciferol (vitamin D3) [Vitamin D3] 25 mcg (1,000 unit) Tablet
25 mcg PO DAILY Qty: 0 0RF
PreserVision AREDS 2,148 mcg-113 mg-45 mg-17.4mg Tablet
1 tab PO BID Qty: 0 0RF
atorvastatin 20 mg Tablet
20 mg PO HS Qty: 30 1RF
metoprolol succinate 100 mg Tablet Extended Release 24 Hr
100 mg PO DAILY Qty: 30 1RF
Referrals:
Virginia Barajas DO [Family Provider] -
Interventions
Interventions:
*Risk Screen - Suicide Last Done: 04/07/24 23:29
*Neglect/Abuse Screening Last Done: 04/07/24 23:29
ZV-Uzguau-Pzykhpvxkx Assessment Last Done: 04/08/24 00:19
Discharge Date and Time
Print Language: AMHARIC
[2024-04-08 01:13] LABS: % Eosinophils 6.5 % (0-6); % Immature Granulocytes 1.4 % (0-0.5); % Lymphocytes 30.5 % (20.5-51.1); % Monocytes 10.6 % (1.7-9.3); Absolute Basophils 0.1 10^3/uL (0-0.2); Absolute Eosinophils 0.5 10^3/uL (0-0.7); Absolute Immature Granulocytes 0.1 10^3/uL (0-0.05); Absolute Lymphocytes 2.5 10^3/uL (1.2-3.4); Absolute Monocytes 0.9 10^3/uL (0.1-0.6); Hematocrit 36.2 % (37.0-47.0); Hemoglobin 11.4 g/dL (12.0-16.0); Mean Corp Hgb Conc. 31.5 g/dL (33.0-37.0); Mean Corpuscular Hgb 20.6 pg (27.0-31.0); Mean Corpuscular Volume 65.3 fL (81.0-99.0); Nucleated Red Blood Cells % 0 %; Platelet Count 238 10^3/uL (130-400); Red Blood Cell Count 5.54 10^6/uL (4.20-5.40); Red Cell Dist. Width 16.6 % (11.5-14.5)
[2024-04-08 01:52] LABS: ALT (SGPT) 21 U/L (0-35); AST (SGOT) 34 U/L (14-36); Albumin 4.1 g/dl (3.5-5.0); Alkaline Phosphatase 72 U/L (38-126); Blood Urea Nitrogen 27 mg/dl (7-17); Calcium 9.1 mg/dl (8.4-10.2); Carbon Dioxide 27 mmol/L (22-30); Chloride 102 mmol/L (98-107); Glucose 124 mg/dl (70-99); Potassium 4.3 mmol/L (3.5-5.1); Sodium 136 mmol/L (135-145); Total Bilirubin 0.7 mg/dl (0.2-1.3); Total Protein 6.6 g/dl (6.3-8.2); eGFR > 60.00
[2024-04-08 02:01] LABS: Lactic Acid 0.9 mmol/L (0.7-2.0)
[2024-04-08] MEDS: NSS 1000 IV (03:41)
--- NOTE | 2024-04-08 04:29 | HPS.HSE ---
Family Physician
-
Family Physician: Virginia Barajas
Chief Complaint
-
Abdominal pain
History of Present Illness
This an 78-year-old female who has a past medical history of proximal atrial fibrillation not on anticoagulation, hypertension, hyperlipidemia, atrial myxoma and a history of bilateral inguinal hernia who presents to the emergency department with
abdominal pain.
She reports that she started having cough about 2 days ago. She was seen by a physician and prescribed doxycycline and Tessalon Perles. She did start taking the cycle yesterday. Today she had cough paroxysms and then she noted a discomfort in the
left lower abdomen. She felt heat and she was having some pain there. She denied any nausea or vomiting. She denies any bloating. She reports that she is passing some gas. The pain persisted so she decided to come to the emergency department.
She reported that about a month she was in the ED with similar episode of abdominal pain which resulted in her hernia that was reduced. This time the attempt to reduce the ED was unsuccessful.
She was hemodynamically stable with a blood pressure of 160/100, afebrile, pulse was 91. Oxygen saturation was 99 on room air. The CBC was completely within normal limits. Likewise electrolytes BUN/creatinine were also normal. She had a CT of
the abdomen and pelvis which showed a small left inguinal hernia containing a short segment of small bowel with SBO due to the incarcerated left inguinal hernia.
Surgery aware. Recommendations for NG tube if vomiting, supine positioning and application of ice pack.
Medical History
Past Medical History
Past Medical History: Reports Arrhythmia (Proximal atrial fibrillation), CAD, HTN and Hypercholesterolemia
Past Surgical History: Reports Other (Bilateral inguinal hernia repairs)
Social History
Tobacco: Non-smoker
Alcohol: None
Drug: None
Living: With Family
Employment: Retired
Family History
Family History: Not pertinent
Allergies / Home Medications
Allergies reflects when Allergies were last updated in [employer].
Home Medications with original date entered in [employer]
Allergy/Medication List:
Allergies
Allergy/AdvReac Type Severity Reaction Status Date / Time
cephalexin monohydrate Allergy Unknown Verified 04/07/24 23:31
[From Keflex]
Sulfa (Sulfonamide Allergy Unknown Verified 04/07/24 23:31
Antibiotics)
Home Medications
acetaminophen 325 mg tablet 650 mg (2 x 325 mg) PO Q4HPRN PRN mild pain,headache,temp >101F #0 tabs 09/20/23
aspirin 81 mg chewable tablet (Children's Aspirin) 81 mg PO DAILY Heart disease/condition #0 tabs 09/20/23
atorvastatin 20 mg tablet 20 mg PO HS High cholesterol #30 tabs 09/20/23
cholecalciferol (vitamin D3) 25 mcg (1,000 unit) tablet (Vitamin D3) 25 mcg PO DAILY Supplement #0 tabs 09/20/23
vitamins A,C,P-ktjq-dmnbbd 2,148 mcg-113 mg-45 mg-17.4 mg tablet (PreserVision AREDS) 1 tab PO BID Supplement #0 tabs 09/20/23
metoprolol succinate 100 mg tablet,extended release 24 hr 100 mg PO DAILY #30 tabs 09/22/23
benzonatate 100 mg capsule 100 mg PO TID PRN cough 04/08/24
doxycycline monohydrate 100 mg capsule 100 mg PO BID 04/08/24
Review of Systems
-
History Source: Patient
Constitutional: Reports No Symptoms
EENT: Reports No Symptoms
Respiratory: Reports No Symptoms
Cardiac: Reports No Symptoms
Abdomen/GI: Reports Abdominal Pain
: Reports No Symptoms
Musculoskeletal: Reports No Symptoms
Skin: Reports No Symptoms
Neurological: Reports No Symptoms
Endocrine: Reports No Symptoms
Hematologic/Lymphatic: Reports No Symptoms
Psych: Reports No Symptoms
Physical Exam
Vital Signs
Vital Signs
Temp Pulse Resp BP Pulse Ox
98.4 F 91 18 160/104 95
04/07/24 23:29 04/08/24 00:00 04/08/24 00:00 04/08/24 00:00 04/08/24 00:00
Physical Exam
General: Well Developed, Well Nourished, Comfortable and Conversant
HEENT: NormoCephalic, Anicteric, Moist mucous membranes and Atraumatic
Respiratory: Clear
Cardiac: S1/S2 and Regular Rhythm
Breast: Deferred by me
GI: Soft, Non Tender, Non Distended, Normal Bowel Sounds and Other (Left inguinal hernia protrusion, no erythema, mild tenderness to palpation)
Rectal: Deferred by Provider
Genito-urinary: Deferred by me
Musculoskeletal: No Clubbing, No Cyanosis and No Edema
Skin: Warm
Neuro: AO x 3
Hematologic/Lymphatic: No Lymphadenopathy
Psych: Calm
Laboratory Results
-
04/08/24 00:58
04/08/24 01:26
Laboratory Results
Lactic Acid 0.9 mmol/L (0.7-2.0) 04/08/24 00:58
Total Bilirubin 0.7 mg/dl (0.2-1.3) 04/08/24 01:26
AST 34 U/L (14-36) 04/08/24 01:26
ALT 21 U/L (0-35) 04/08/24 01:26
Alkaline Phosphatase 72 U/L (38-126) 04/08/24 01:26
Data Reviewed
-
CT Scan: Report Reviewed by me
Lab Data: Labs Reviewed by me
Old Records: Reviewed
Impression/Plan
-
IMPRESSION:
Susan is an 78-year-old with history of inguinal hernia status post repair with persistent hernia who presented to the hospital last month and had manual reduction now presents to the hospital in the setting of cough paroxysms with another left
inguinal hernia with failure of manual reduction in the emergency department. She is otherwise well-appearing. Hemodynamically stable afebrile and in minimal pain. She is not vomiting. Labs are stable. CT shows a small left inguinal hernia with
a small amount of small bowel incarcerated in it. There is subsequent small bowel obstruction.
PLAN:
SBO secondary to incarcerated left inguinal hernia
- admit to med/surg
- npo for now
- hold aspirin
- not vomiting, no NGT at this time
- surgery aware, keep supine and icepack applied, No plans for immediate transfer to OR
- gentle hydration
- surgery consult placed
Bronchitis
- doxycycline 100mg bid x 6 days, IV for now
- neb treatments prn
- cough suppression as needed
DVT PPX - lovenox sq
Code status - full code
[2024-04-08 05:20] VITALS: BP 156/99
[2024-04-08 05:41] VITALS: BP 159/99
[2024-04-08 06:00] VITALS: BP 171/116; BMI 30.1
[2024-04-08] MEDS: VIBRAMYCIN 260 MG IV (06:43)
[2024-04-08] MEDS: LOPRESSOR 5 MG IV (06:43)
[2024-04-08 07:22] LABS: Hematocrit 33.5 % (37.0-47.0); Hemoglobin 10.7 g/dL (12.0-16.0); Mean Corp Hgb Conc. 31.9 g/dL (33.0-37.0); Mean Corpuscular Hgb 20.7 pg (27.0-31.0); Mean Corpuscular Volume 64.7 fL (81.0-99.0); Mean Platelet Volume 10.8 fL (7.4-10.4); Platelet Count 198 10^3/uL (130-400); Red Blood Cell Count 5.18 10^6/uL (4.20-5.40); Red Cell Dist. Width 15.9 % (11.5-14.5); White Blood Cell Count 5.8 10^3/uL (4.8-10.8)
[2024-04-08 07:35] VITALS: BP 158/94
--- NOTE | 2024-04-08 07:36 | TRANSFER ---
0550 received pt from ED - pt was able to ambulate from stretcher to bed without incident. VS as documented. Pt denied pain/ nausea. Left groin w distension noted, ice applied. HOB maintained @ <30 degree. Assessment ongoing.
[2024-04-08 07:43] LABS: Blood Urea Nitrogen 20 mg/dl (7-17); Calcium 8.9 mg/dl (8.4-10.2); Carbon Dioxide 27 mmol/L (22-30); Chloride 103 mmol/L (98-107); Estimated Creatinine Clearance 76 ml/min; Glucose 110 mg/dl (70-99); Potassium 4.3 mmol/L (3.5-5.1); Sodium 137 mmol/L (135-145); eGFR > 60.00
--- NOTE | 2024-04-08 09:50 | W.PN.HOSP.TC ---
Today's Communication/Plan
-
plan for DC today
Assessment / Plan
Assessment / Plan
This an 78-year-old female who has a past medical history of proximal atrial fibrillation not on anticoagulation, hypertension, hyperlipidemia, atrial myxoma and a history of bilateral inguinal hernia who presents to the emergency department with
abdominal pain.
Abdomen/Pelvis CT
IMPRESSION:
1. Probable incarcerated left inguinal hernia containing a loop of small bowel with associated obstruction.
Incarcerated left inguinal hernia
-hernia reduced by Dr. Oh this morning and diet advanced
-OK for discharge if tolerates regular diet
Bronchitis
- doxycycline 100mg bid x 6 days, IV for now
- neb treatments prn
- cough suppression as needed
DVT PPX - lovenox sq
Code status - full code
Anticipated Discharge: Today
Subjective/Interval History
-
Date of Service: April 08, 2024
ate oatmeal, yogurt and banana this morning and wants to leave- feeling much better
Objective Data
-
Labs:
Laboratory Results
04/08/24 04/08/24 04/08/24
00:58 01:26 07:08
WBC 8.0 5.8
Hgb 11.4 L 10.7 L
Hct 36.2 L 33.5 L
Plt Count 238 198
Sodium Cancelled 136 137
Potassium Cancelled 4.3 4.3
Chloride Cancelled 102 103
Carbon Dioxide Cancelled 27 27
BUN Cancelled 27 H 20 H
Creatinine Cancelled 0.7 0.6
Glucose Cancelled 124 H 110 H
Calcium Cancelled 9.1 8.9
Total Bilirubin Cancelled 0.7
AST Cancelled 34
ALT Cancelled 21
Alkaline Phosphatase Cancelled 72
Vital Signs:
Vital Signs
Temp Pulse Resp BP Pulse Ox
98.0 F 90 16 158/94 97
04/08/24 07:35 04/08/24 07:35 04/08/24 07:35 04/08/24 07:35 04/08/24 07:35
Review of Systems
-
History Source: Patient
All other systems: Reviewed and negative
Physical Exam
-
General: No Apparent Distress
HEENT: PERRLA
Respiratory: Clear to Auscultation; Negative Wheezes
Cardiac: Regular Rhythm and S1/S2
GI: Soft and Nontender
Musculoskeletal: No Edema
Skin: Warm and Dry; Negative Rash
Neuro: AO x 3
Psych: Calm
Data Reviewed
-
Diagnostic Radiology: Report Reviewed by me
Labs: Labs Reviewed by me
--- NOTE | 2024-04-08 09:59 | W.DS.TRANS ---
DC Summary - [employer]
-
Discharge Instructions:
Discharge Diagnosis/Procedures Incarcerated Inguinal Hernia
Diet Regular
Activity As tolerated
Driving Restrictions As prior to admission
Bathing Restrictions None
Instructions:
Stand-Alone Forms:
Changes to Home Medications: No
Discharge Medications:
DC Medications w/original date entered in [employer]
acetaminophen 325 mg tablet 650 mg (2 x 325 mg) PO Q4HPRN PRN mild pain,headache,temp >101F #0 tabs 09/20/23
aspirin 81 mg chewable tablet (Children's Aspirin) 81 mg PO DAILY Heart disease/condition #0 tabs 09/20/23
atorvastatin 20 mg tablet 20 mg PO HS High cholesterol #30 tabs 09/20/23
cholecalciferol (vitamin D3) 25 mcg (1,000 unit) tablet (Vitamin D3) 25 mcg PO DAILY Supplement #0 tabs 09/20/23
vitamins A,C,U-satg-apclje 2,148 mcg-113 mg-45 mg-17.4 mg tablet (PreserVision AREDS) 1 tab PO BID Supplement #0 tabs 09/20/23
metoprolol succinate 100 mg tablet,extended release 24 hr 100 mg PO DAILY #30 tabs 09/22/23
benzonatate 100 mg capsule 100 mg PO TID PRN cough 04/08/24
doxycycline monohydrate 100 mg capsule 100 mg PO BID 04/08/24
Home Medication Changes
Pending Results: No
[2024-04-08] MEDS: LOW STRENGTH ASPIRIN 81 MG PO (10:49)
--- NOTE | 2024-04-08 10:56 | CON.GS ---
Consultation
-
Requesting Provider: Rodrigo
Performing Provider: Althea
Reason for Consultation: Incarcerated left inguinal hernia
Medical History
-
Chief Complaint: left groin pain
History of Present Illness:
78F with recent history of bronchitis and coughing with acute onset painful lump to left groin. had this in the past and was able to reduce. Denies f/c/n/v. Passing flatus. Feels better this am with less groin pain.
Past Medical History
Past Medical History: Other (Arrhythmia (Proximal atrial fibrillation), CAD, HTN and Hypercholesterolemia)
Past Surgical History: Other (right IHR)
Social History
Tobacco: Non-Smoker
Alcohol: None
Drug: None
Living: With Family
Employment: Retired
Family History
Family History: Reviewed & Not Pertinent
Allergies / Home Medications
Allergy/AdvReac Type Severity Reaction Status Date / Time
cephalexin monohydrate Allergy Unknown Verified 04/07/24 23:31
[From Keflex]
Sulfa (Sulfonamide Allergy Unknown Verified 04/07/24 23:31
Antibiotics)
�Medication �Instructions �Recorded �Confirmed �Type
acetaminophen 325 mg tablet 650 mg (2 x 325 mg) PO Q4HPRN PRN 09/20/23 04/08/24 Rx
mild pain,headache,temp >101F #0
tabs
aspirin 81 mg chewable tablet 81 mg PO DAILY Heart 09/20/23 04/08/24 Rx
(Children's Aspirin) disease/condition #0 tabs
atorvastatin 20 mg tablet 20 mg PO HS High cholesterol #30 09/20/23 04/08/24 Rx
tabs
cholecalciferol (vitamin D3) 25 25 mcg PO DAILY Supplement #0 tabs 09/20/23 04/08/24 Rx
mcg (1,000 unit) tablet (Vitamin
D3)
vitamins A,C,Q-vwjl-xdfsjg 2,148 1 tab PO BID Supplement #0 tabs 09/20/23 04/08/24 Rx
mcg-113 mg-45 mg-17.4 mg tablet
(PreserVision AREDS)
metoprolol succinate 100 mg 100 mg PO DAILY #30 tabs 09/22/23 04/08/24 Rx
tablet,extended release 24 hr
benzonatate 100 mg capsule 100 mg PO TID PRN cough 04/08/24 04/08/24 History
doxycycline monohydrate 100 mg 100 mg PO BID 04/08/24 04/08/24 History
capsule
Review of Systems
-
A 10 point review of systems was completed, and was negative except as per HPI.
Physical Exam
Vital Signs
Temp Pulse Resp BP Pulse Ox
98.0 F 90 16 158/94 97
04/08/24 07:35 04/08/24 07:35 04/08/24 07:35 04/08/24 07:35 04/08/24 07:35
04/07/24 04/08/24 04/09/24
06:59 06:59 06:59
Actual Weight 79.469 kg
Body Mass Index (BMI) 30.1
Lab Results
04/08/24 07:08
04/08/24 07:08
WBC 5.8 10^3/uL (4.8-10.8) 04/08/24 07:08
Hgb 10.7 g/dL (12.0-16.0) L 04/08/24 07:08
Hct 33.5 % (37.0-47.0) L 04/08/24 07:08
Plt Count 198 10^3/uL (130-400) 04/08/24 07:08
Abs Immat Gran (auto) 0.1 10^3/uL (0-0.05) H 04/08/24 00:58
Neutrophils % 50.0 % (42.2-75.2) 04/08/24 00:58
Physical Exam
General: Well Developed, Well Nourished and No Apparent Distress
GI: Soft and Non Tender
Genito-urinary: Inguinal Hernia (LIH manually reduced with moderate difficulty, no sedation nor pain meds required)
Skin: Warm and Dry
Neuro: AO x 3
Data Reviewed
-
CT Scan: Image Personally Visualized and interpreted, Report Reviewed by me, Discussed with Physician and Discussed with Patient
Labs: Labs Reviewed by me and Discussed with Physician
Assessment / Plan
-
78F with incarcwerated LIH in setting of bronchitis
hernia manually reduced.
Pt advised to do everything possible to suppress the cough and to brace the left groin if she does cough.
OK for PO challenge and home if tolerates, Advised to f/u with me int he office to discuss repair.
--- NOTE | 2024-04-08 11:39 | CM ---
Met with patient. She is feeling better and maybe able to go today if she tolerates her diet. She states prior to admission she resides with her son -in-law and daughter in a two story home with one step to enter. She states she has seventeen
steps to get to bedroom/full bathroom. She states she has a powder room on the first floor. She does not have any DME in the home. She states she has a prescription plan. She uses [facility].
PCP Dr. Virginia Barajas.
PLAN: home no needs.
[2024-04-08] MEDS: TOPROL XL 100 MG PO (12:32)
[2024-04-08 13:40] VITALS: BP 148/68
--- NOTE | 2024-04-08 13:42 | W.DCSUMMARY ---
Discharge Summary
Discharge Data
Date of Admission: 04/08/24
Date of Discharge: 04/08/24
-
Pending Results: No
Hospital Course
Discharging Physician :
Disposition : Home
Primary care physician : Dr. Virginia Barajas
Principal Discharge diagnosis : Incarcerated Inguinal Hernia
Hospital Course :
Ms. Astrid Hays is an 78 yo woman with medical history of proximal atrial fibrillation not on anticoagulation, hypertension, hyperlipidemia, atrial myxoma and a history of bilateral inguinal hernia who presents to the emergency department
with abdominal pain.
She was hemodynamically stable with a blood pressure of 160/100, afebrile, pulse was 91. Oxygen saturation was 99 on room air. The CBC was completely within normal limits. Likewise electrolytes BUN/creatinine were also normal. She had a CT of
the abdomen and pelvis which showed a small left inguinal hernia containing a short segment of small bowel with SBO due to the incarcerated left inguinal hernia.
She was admitted to medicine with general surgery consult. On morning of HD 1, Dr. Oh was able to manually reduce hernia. She tolerated a regular diet and was eager to go home. She will follow up closely with Dr. Oh to discuss repair.
Time spent on discharge was 31 minutes.
Important imaging findings :
Abdomen/Pelvis CT
IMPRESSION:
1. Probable incarcerated left inguinal hernia containing a loop of small bowel with associated obstruction.
Procedure findings :
Discharge Plan
-
Patient Disposition: Home (Routine Discharge)
Discharge Diagnosis/Procedures: Incarcerated Inguinal Hernia
Diet: Regular
Activity: As tolerated
Driving Restrictions: As prior to admission
Bathing Restrictions: None
Referrals:
John Oh MD [Active] - in one to two weeks
Virginia Barajas, [Family Provider] - in less than 1 week
Prescriptions:
Continued
acetaminophen 325 mg Tablet
650 mg PO Q4HPRN PRN (Reason: mild pain,headache,temp >101F ) Qty: 0 0RF
aspirin [Children's Aspirin] 81 mg Tablet,Chewable
81 mg PO DAILY Qty: 0 0RF
cholecalciferol (vitamin D3) [Vitamin D3] 25 mcg (1,000 unit) Tablet
25 mcg PO DAILY Qty: 0 0RF
PreserVision AREDS 2,148 mcg-113 mg-45 mg-17.4mg Tablet
1 tab PO BID Qty: 0 0RF
atorvastatin 20 mg Tablet
20 mg PO HS Qty: 30 1RF
metoprolol succinate 100 mg Tablet Extended Release 24 Hr
100 mg PO DAILY Qty: 30 1RF
benzonatate 100 mg Capsule
100 mg PO TID PRN (Reason: cough)
doxycycline monohydrate 100 mg Capsule
100 mg PO BID
Discharge Orders:
Discharge Patient (As Directed); Ordered 04/08/24
Ordered By: Rebecca Chen
Discharge Date and Time
Print Language: GEORGIAN
== END 2024-04-08 13:00 | disposition home or self-care (01) | DRG 395 ==
LOC: 2 SOUTH 05:02
PROVIDERS: ADMITTING PHYSICIAN Internal Medicine; ATTENDING PHYSICIAN Student in an Organized Health Care Education/Training Program; CONSULT PHYSICIAN Surgery; EMERGENCY PHYSICIAN Emergency Medicine; FAMILY PHYSICIAN Family Medicine
DX: K40.30 Unilateral inguinal hernia, with obstruction, without gangrene, not specified as recurrent (principal); E78.00 Pure hypercholesterolemia, unspecified; I10 Essential (primary) hypertension; I48.0 Paroxysmal atrial fibrillation; E78.5 Hyperlipidemia, unspecified; I25.10 Atherosclerotic heart disease of native coronary artery without angina pectoris; J40 Bronchitis, not specified as acute or chronic; Z88.2 Allergy status to sulfonamides
CPT/HCPCS: 74177; 80048; 80053; 83605; 85025; 85027; 96360; 99285; Q9967

== ENCOUNTER 2024-06-01 06:25 | Day surgery (SDC) | payer MEDICARE, OTHER, SELFPAY ==
[2024-06-01] VITALS (7 sets, daily range): BP systolic 126–172; BP diastolic 60–106; BMI 29.4
[2024-06-01] MEDS: TYLENOL 1000 MG PO (08:38)
[2024-06-01] MEDS: NORMOSOL-R/PLASMALYTE-A 1000 IV (08:38)
--- NOTE | 2024-06-01 11:05 | OR.RPT ---
Operative Report
Operative Report
Primary Surgeon: Althea
Assisting: Aditi PRATER
Pre-op Diagnosis: Recurrent left inguinal hernia
Post-op Diagnosis: Same
Procedure Performed: Robot assisted laparoscopic repair of recurrent left inguinal hernia
Anesthesia Type: GETA
Specimen / Cultures: None
Estimated Blood Loss: 5cc
Complications: None immediate
Operative Findings: Recurrent left femoral hernia with fatty contents, incarcerated, XL MID 3D max
Date of surgery: 06/01/24
Indications:� This 78F developed a symptomatic recurrent left inguinal hernia. Robot assisted laparoscopic repair of recurrent left inguinal hernia was planned.
Description of procedure:� The patient was taken to the operating room and positioned into supine position. The patient�s abdomen was prepped and draped in standard sterile fashion. A time-out was completed verifying correct patient, procedure,
site, positioning, and implants and special equipment prior to beginning this procedure.
The groin hernia was manually reduced. A stab incision was made in the left upper quadrant, a Veress needle was inserted and proper position was confirmed by aspiration and saline drop test. Following this, pneumoperitoneum was created with
insufflation of carbon dioxide to 12 mmHg. Then a 8mm robotic trocar was inserted above and to the left of the umbilicus. A laparoscope was inserted and the area of initial trocar entry and Veress needle placement were both inspected and no injuries
were found. Two 8mm trocars were then placed lateral to the rectus sheath under direct visualization.
Both inguinal regions were inspected and the median umbilical ligament, medial umbilical ligament, and lateral umbilical fold were identified. Attention was turned to the left groin. The peritoneum was incised transversely above the defect and a
flap was developed in the caudad direction. Sang�s ligament was identified ultimately dissected to its junction with the iliac vein and the space of Retzius was developed bluntly.� The dissection was continued inferiorly to the iliopubic tract,
with care taken to avoid injury to the femoral branch of the genitofemoral nerve and the lateral femoral cutaneous nerve. The round ligament was parietalized and sacrificed low near the interface with the peritoneum.
The direct space was inspected and no hernia defect was identified. The femoral space was inspected a defect was identified, and fatty contents were reduced. The indirect space was inspected and no hernia was identified. The canal was inspected and
a small cord lipoma was identified and reduced.
Extra large left MID 3D max mesh was passed through a trocar. The mesh was placed into the preperitoneal space and moved into position to lay flat and completely cover the direct, indirect, and femoral spaces with overlap at the midline. The mesh
was secured into place using 2-0 vicryl suture to Sang�s ligament medially and laterally. Care was taken to avoid the inferolateral triangles containing the iliac vessels and genital nerves. The peritoneal flap was closed over the mesh and secured
with 2-0 monocryl stratafix suture in similar positions of safety. A 14g angiocath was used to decompress the preperitoneal space revealing good seal and all mesh in good position without folding or curling.
After ensuring adequate hemostasis, the trocars were removed and the pneumoperitoneum allowed to escape. The trocar incisions were closed at the skin level using 4-0 monocryl and topical skin adhesive. All counts were correct and the patient
tolerated the procedure well and was taken to the postanesthesia care unit in stable condition.
The assistance of Aditi PRATER was required due to the complexity of the procedure. During the procedure she assisted with retraction, resection, and closure of the wound.
== END 2024-06-01 12:48 | disposition home or self-care (01) ==
LOC: SDS 06:25
PROVIDERS: ATTENDING PHYSICIAN Surgery
PROC: 8E0W4CZ Robotic Assisted Procedure of Trunk Region, Percutaneous Endoscopic Approach (ICD-10-PCS; 2024-06-01)
PROC: 0YU64JZ Supplement Left Inguinal Region with Synthetic Substitute, Percutaneous Endoscopic Approach (ICD-10-PCS; 2024-06-01)
DX: K40.91 Unilateral inguinal hernia, without obstruction or gangrene, recurrent (principal); Z88.1 Allergy status to other antibiotic agents; Z88.2 Allergy status to sulfonamides; D17.79 Benign lipomatous neoplasm of other sites
CPT/HCPCS: 49651; C1781; J1335

== ENCOUNTER 2024-06-07 09:08 | Emergency (ER) | payer MEDICARE, OTHER, SELFPAY ==
[2024-06-07] VITALS (7 sets, daily range): BP systolic 87–148; BP diastolic 54–96; BMI 30.3
--- NOTE | 2024-06-07 10:04 | ED.GENMED ---
History of Present Illness
General
Chief Complaint: Post Operative Problem(s)
Source: patient
Exam Limitations: none
Time Seen by Provider: 06/07/24 09:53
Nursing documentation reviewed up to this point in time: agreed with
History of Present Illness
History of Present Illness:
Patient is an 79-year-old female who presents to the ER for evaluation. Patient had laparoscopic robotic assisted hernia repair of left inguinal hernia 06/[address] Oh. This was a same-day surgery. Patient noticed some redness and drainage
clear fluid since yesterday. She denies any fever chills.
In addition patient reports last night she had an episode of chest pain which lasted for about a minute across her chest. She had no associated shortness of breath nausea vomiting diaphoresis with this. No radiation of pain no back pain.
Asymptomatic now. She denies any abdominal pain.
Past History
Past History
ED Past Medical History: HTN and Hypercholesterolemia
ED Past Surgical History: Other
Social History
Tobacco: Non-smoker
Alcohol: None
Drug: None
Personal:
Living: with family
Employment: Other
Family History
Family History: Other
Review of Systems
Review of Systems
Allergies reviewed?: Yes
All Other Systems: ROS reviewed and negative except as documented in HPI and ROS
Constitutional: Reports no symptoms; Denies fever, fatigue or chills
Cardiac: Reports chest pain; Denies diaphoresis, palpitations or syncope
ABD/GI: Reports no symptoms
: Reports no symptoms
Musculoskeletal: Reports no symptoms
Skin: Reports no symptoms
Neurological: Reports no symptoms
Psychiatric: Reports no symptoms
Phy Exam
General Physical Exam
General Presentation: no apparent distress
General age: appears stated age
General Skin: warm and dry
General Habitus: normal
General Mental: alert
General Hydration: appears well hydrated
Cardiovascular Exam
Cardiovascular Exam: tachycardia
Pulmonary Exam
Pulmonary Exam: lungs clear and no respiratory distress
Gastrointestinal Exam
Gastrointestinal Exam: soft and other (Healing surgical sites with redness however scattered throughout the abdomen and also on the left breast likely fungal in nature no purulent drainage. no fluctuance )
Neurological Exam
Neurological Exam: alert and oriented x3
Musculoskeletal Exam
Musculoskeletal Exam: full ROM
Skin Exam
Skin Exam: normal color and warm/dry
Psychiatric Exam
Psychiatric Exam: normal mood/affect
Sepsis
Sepsis Screening
Sepsis Assessment: Sepsis Ruled Out
Sepsis Screen
Sepsis Screen: Sepsis Ruled Out
Date: 06/07/24
Time: 17:23
Course
Orders/Labs/Results
Orders:
Orders
06/07/24 10:06
Chest [CR Chest - 2 Views ] Urgent
Comment:
Reason For Exam: cp
06/07/24 10:22
Complete Blood Count/With Diff Urgent
Comprehensive Metabolic Panel Urgent
Troponin I Urgent
06/07/24 10:37
Electrocardiogram (*1) Stat
Reason for Study: Other
Other Reason for Exam: chest pain
EKG- Treatment ONCE
06/07/24 12:44
CT Chest PE Study Urgent
Comment:
Reason For Exam: cp s/p surgery
06/07/24 12:50
0.9% Sodium Chloride 500 ml [Nss] 1,000 ml IV BOLUS
Abnormal Lab Results
06/07/24
10:22
Hgb 10.7 L g/dL
(12.0-16.0)
Hct 34.3 L %
(37.0-47.0)
MCV 66.2 L fL
(81.0-99.0)
MCH 20.7 L pg
(27.0-31.0)
MCHC 31.2 L g/dL
(33.0-37.0)
RDW 16.5 H %
(11.5-14.5)
Absolute Monos (auto) 0.8 H 10^3/uL
(0.1-0.6)
Absolute Eos (auto) 0.8 H 10^3/uL
(0-0.7)
Monocytes % 9.9 H %
(1.7-9.3)
Eosinophils % 9.8 H %
(0-6)
Carbon Dioxide 31 H mmol/L
(22-30)
BUN 20 H mg/dl
(7-17)
Total Protein 6.2 L g/dl
(6.3-8.2)
06/07/24 10:22
06/07/24 10:22
Vital Signs
Initial and Last Documented VS:
Initial Vital Signs
Temp Pulse Resp BP Pulse Ox
99.0 F 97 18 148/93 98
06/07/24 09:13 06/07/24 09:13 06/07/24 09:13 06/07/24 09:13 06/07/24 09:13
Last Documented Vital Signs
Temp Pulse Resp BP Pulse Ox
99.0 F 103 12 148/90 96
06/07/24 09:13 06/07/24 14:40 06/07/24 14:40 06/07/24 14:40 06/07/24 14:40
Drainage Inspector consulted with Physician
Drainage Inspector consulted with physician?: Yes
Name of Physician Consulted: Brandin
MDM/Problems Addressed
Differential Diagnosis Includes:
Not limited to ACS, less likely PE, and skin infection
MDM/Problems Addressed:
As documented patient is an 79-year-old female who had inguinal surgery repair robotic assisted laparoscopic on Saturday and presented for redness to the site symptoms concerning for infection. This redness looks to be more fungal. Case discussed
with surgery , and Surgery physician events and promotions assistant examined patient and they did recommend fungal cream. Incidentally patient also had some chest pain; with recent surgery chest CT was done to rule out PE which was negative. cardiac troponin negative
patient.
is no acute distress here in the ER and is well-appearing. Patient is minimally tachycardic here in the ER however anxious about being here in no acute distress stable for discharge home.
Denies any fevers and has normal white count is afebrile
Case discussed with ED physician
*Radiology
Radiology exam reviewed: radiology read reviewed
*Pulse Oximetry
Patient hypoxic: no
*EKG
Interpreted by ED Provider?: Yes
Interpretation: normal
Heart Rate: 81
Rate: normal
Rhythm: sinus
Ischemia: non-specific ST changes
*Critical Care Note
Total Time (30-74mins, 75-104mins- exclusive of procedures): Not Applicable
Patient Management
Discussion with other providers: Capper Machine Operator (Surg, DR Mcclendon )
ED Attending Note
-
Portions of this chart may have been created with voice recognition software.� Occasional wrong word or��sound alike� substitutions may have occurred due to the inherent limitations of voice recognition software.
Discharge Plan
Departure
Patient Disposition: Home (Routine Discharge)
Date of Disposition: 06/07/24
Time of Disposition: 13:53
Patient with high blood pressure during this ER visit?: Yes
Condition: Fair
Covid-19: Not Applicable
Discharge Problem:
Chest pain, fungal skin rash
Instructions: Fungal Skin Rash ED, Chest Pain DCA Follow Up, BLOOD PRESSURE
Prescriptions:
New
nystatin 100,000 unit/gram cream
1 applic topical TID Qty: 30 0RF
No Action
acetaminophen 325 mg Tablet
650 mg PO Q4HPRN PRN (Reason: mild pain,headache,temp >101F ) Qty: 0 0RF
aspirin [Children's Aspirin] 81 mg Tablet,Chewable
81 mg PO DAILY Qty: 0 0RF
cholecalciferol (vitamin D3) [Vitamin D3] 25 mcg (1,000 unit) Tablet
25 mcg PO DAILY Qty: 0 0RF
PreserVision AREDS 2,148 mcg-113 mg-45 mg-17.4mg Tablet
1 tab PO BID Qty: 0 0RF
atorvastatin 20 mg Tablet
20 mg PO HS Qty: 30 1RF
latanoprost 0.005 % Drops
1 drp OPHTHALMIC (EYE) DAILY
prednisolone acetate 0.12 % Drops,Suspension
1 drp OPHTHALMIC (EYE) DAILY
metoprolol succinate 100 mg tablet extended release 24 hr
50 mg PO QPM
timolol maleate 0.5 % Drops
1 drp OPHTHALMIC (EYE) DAILY
moxifloxacin 0.5 % Drops
1 drp OPHTHALMIC (EYE) DAILY
oxycodone 5 mg tablet
5 - 10 mg PO Q4HPRN PRN (Reason: moderate to severe pain) Qty: 20 0RF
Referrals:
Virginia Barajas, DO [Family Provider] -
Activity Restrictions/Additional Instructions:
As discussed apply nystatin cream to affected areas 3 times a day. This medication was sent to pharmacy. Follow-up with surgery as previously instructed. Return if any worsening of symptoms including worsening redness, fevers.
As discussed regarding your chest pain your CAT scan was negative for blood clot your cardiac enzymes are normal, follow-up with a rubber tester. Return if any worsening of symptoms.
Interventions
Interventions:
*Risk Screen - Suicide Last Done: 06/07/24 09:13
*General Assessment Last Done: 06/07/24 10:25
*Neglect/Abuse Screening Last Done: 06/07/24 09:13
ED- Fall Risk Assessment Last Done: 06/07/24 10:25
*ED COVID-19 Vaccine History Last Done: 06/07/24 10:25
*Nursing Disposition Last Done: 06/07/24 14:45
ED-Skin Assessment Last Done: 06/07/24 10:25
Discharge Date and Time
Discharge Date/Time: 06/07/24 14:45
Print Language: [place]
--- NOTE | 2024-06-07 10:07 | EDRN ---
Chapo Georges NP in room w/ pt.
[2024-06-07 10:42] LABS: % Basophils 0.5 % (0-2); % Eosinophils 9.8 % (0-6); % Immature Granulocytes 0.3 % (0-0.5); % Lymphocytes 31.3 % (20.5-51.1); % Monocytes 9.9 % (1.7-9.3); % Neutrophils 48.2 % (42.2-75.2); Absolute Eosinophils 0.8 10^3/uL (0-0.7); Absolute Lymphocytes 2.4 10^3/uL (1.2-3.4); Absolute Monocytes 0.8 10^3/uL (0.1-0.6); Absolute Neutrophils 3.8 10^3/uL (1.4-6.5); Hematocrit 34.3 % (37.0-47.0); Hemoglobin 10.7 g/dL (12.0-16.0); Mean Corp Hgb Conc. 31.2 g/dL (33.0-37.0); Mean Corpuscular Hgb 20.7 pg (27.0-31.0); Mean Corpuscular Volume 66.2 fL (81.0-99.0); Nucleated Red Blood Cells % 0.3 %; Platelet Count 206 10^3/uL (130-400); Red Blood Cell Count 5.18 10^6/uL (4.20-5.40); Red Cell Dist. Width 16.5 % (11.5-14.5); White Blood Cell Count 7.8 10^3/uL (4.8-10.8)
[2024-06-07 10:53] LABS: ALT (SGPT) 19 U/L (0-35); AST (SGOT) 24 U/L (14-36); Albumin 3.9 g/dl (3.5-5.0); Alkaline Phosphatase 66 U/L (38-126); Blood Urea Nitrogen 20 mg/dl (7-17); Calcium 9.1 mg/dl (8.4-10.2); Carbon Dioxide 31 mmol/L (22-30); Chloride 102 mmol/L (98-107); Estimated Creatinine Clearance 64 ml/min; Glucose 84 mg/dl (70-99); Potassium 4.3 mmol/L (3.5-5.1); Sodium 137 mmol/L (135-145); Total Bilirubin 1.3 mg/dl (0.2-1.3); Total Protein 6.2 g/dl (6.3-8.2); eGFR > 60.00
[2024-06-07 11:04] LABS: Troponin I < 0.012 ng/ml
--- NOTE | 2024-06-07 11:10 | EDRN ---
Chapo Georges NP in room w/ pt
--- NOTE | 2024-06-07 12:08 | EDRN ---
Pt was seen by PA for the surgeon who informed pt and daughter that she is sending surgeon down to see the area.
--- NOTE | 2024-06-07 12:33 | CON.GS ---
Consultation
-
Date/Time Consultation Requested: 06/07/2024
Date/Time Consultation Performed: 06/07/2024, 12:05
Requesting Provider: Charissa Georges
Performing Provider: Stephen Mcclendon MD
Reason for Consultation: ?wound infection
Medical History
-
Chief Complaint: redness around incisions
History of Present Illness:
79-year-old female who recently underwent a robotic assisted laparoscopic repair of recurrent left inguinal hernia by Dr. Oh on 06/01/2024 presents to [facility] complaining of redness around her incisions. She states that she had related the
incision since surgery but noticed that on Saturday night there was some thin yellow weeping discharge on her nightgown. This morning she noticed it again as well as redness around her incisions. She is not quite sure if the redness was there
since surgery or if it has gotten worse. She denies any itching or burning. She denies fevers or chills. She does states she had chills yesterday but she is 'always cold and in a blanket'. She has no abdominal pain. She has bowel function. Her
only complaint is redness around the incisions.
Past Medical History
Past Medical History: Other (Arrhythmia (Proximal atrial fibrillation), CAD, HTN and Hypercholesterolemia)
Past Surgical History: Other (Bilateral inguinal hernia repairs)
Social History
Tobacco: Non-Smoker
Alcohol: None
Drug: None
Family History
Family History: Reviewed & Not Pertinent
Allergies / Home Medications
Allergy/AdvReac Type Severity Reaction Status Date / Time
amiodarone Allergy Rash Verified 06/07/24 09:18
cephalexin monohydrate Allergy Rash Verified 06/07/24 09:18
[From Keflex]
Sulfa (Sulfonamide Allergy Rash Verified 06/07/24 09:18
Antibiotics)
�Medication �Instructions �Recorded �Confirmed �Type
acetaminophen 325 mg tablet 650 mg (2 x 325 mg) PO Q4HPRN PRN 09/20/23 05/25/24 Rx
mild pain,headache,temp >101F #0
tabs
aspirin 81 mg chewable tablet 81 mg PO DAILY Heart 09/20/23 06/01/24 Rx
(Children's Aspirin) disease/condition #0 tabs
atorvastatin 20 mg tablet 20 mg PO HS High cholesterol #30 09/20/23 06/01/24 Rx
tabs
cholecalciferol (vitamin D3) 25 25 mcg PO DAILY Supplement #0 tabs 09/20/23 06/01/24 Rx
mcg (1,000 unit) tablet (Vitamin
D3)
vitamins A,C,W-jrbl-ourguy 2,148 1 tab PO BID Supplement #0 tabs 09/20/23 06/01/24 Rx
mcg-113 mg-45 mg-17.4 mg tablet
(PreserVision AREDS)
latanoprost 0.005 % eye drops 1 drp ophthalmic (eye) DAILY right 05/25/24 05/25/24 History
eye
metoprolol succinate 100 mg 50 mg PO QPM 05/25/24 06/01/24 History
tablet,extended release 24 hr
moxifloxacin 0.5 % eye drops 1 drp ophthalmic (eye) DAILY right 05/25/24 05/25/24 History
eye
prednisolone acetate 0.12 % eye 1 drp ophthalmic (eye) DAILY right 05/25/24 05/25/24 History
drops,suspension eye
timolol maleate 0.5 % eye drops 1 drp ophthalmic (eye) DAILY right 05/25/24 05/25/24 History
eye
oxycodone 5 mg tablet 5 - 10 mg (1 - 2 x 5 mg) PO Q4HPRN 06/01/24 Rx
PRN moderate to severe pain #20
tabs
Review of Systems
-
History Source: Patient
Abdomen/GI: Other (redness around incisions)
A 10 point review of systems was completed, and was negative except as per HPI.
Physical Exam
Vital Signs
Temp Pulse Resp BP Pulse Ox
99.0 F 103 21 136/71 96
06/07/24 09:13 06/07/24 11:45 06/07/24 11:45 06/07/24 11:00 06/07/24 11:45
06/06/24 06/07/24 06/08/24
06:59 06:59 06:59
Actual Weight 80 kg
Body Mass Index (BMI) 30.3
Lab Results
06/07/24 10:22
06/07/24 10:22
WBC 7.8 10^3/uL (4.8-10.8) 06/07/24 10:22
Hgb 10.7 g/dL (12.0-16.0) L 06/07/24 10:22
Hct 34.3 % (37.0-47.0) L 06/07/24 10:22
Plt Count 206 10^3/uL (130-400) 06/07/24 10:22
Abs Immat Gran (auto) 0.0 10^3/uL (0-0.05) 06/07/24 10:22
Neutrophils % 48.2 % (42.2-75.2) 06/07/24 10:22
Physical Exam
General: Well Developed and Well Nourished
GI: Soft, Non Tender, Non Distended and Other (Redness around all of her robotic incisions. Nontender to the touch. The right upper incision appears weepy as well as the midline incision. There are satellite lesions surrounding each incision and
it extends upward to her left breast and in the skin fold)
Neuro: AO x 3
Data Reviewed
-
Labs: Labs Reviewed by me, Discussed with Physician and Discussed with Patient
Old Records: Reviewed
Assessment / Plan
-
Assessment: 79-year-old female postop day 6 from a robotic assisted left hernia repair by Dr. Oh, presents with redness around her incisions that are fungal like in appearance
Plan:
Her WBC is normal and she remains afebrile. Her main complaint is just redness around her incisions. Given their appearance as well as extension to her left breast and satellite lesions, suspect this is fungal in origin. Recommend nystatin cream
to area and for close follow-up with Dr. Oh in the office either tomorrow or the following day. Discussed with Dr. Mcclendon.
[2024-06-07] MEDS: NSS 1000 IV (12:51)
--- NOTE | 2024-06-07 12:59 | EDRN ---
WOUND/SKIN CARE NOTE: Pt identified by name and .
lower abd laparoscopic scar, above perineum
L upper abd laparoscopic scar
L upper and mid abd laparoscopic scars
Upper epigastric area mid upper abd laparoscopic scar.
--- NOTE | 2024-06-07 13:59 | EDRN ---
Chapo Georges MACHINIST HELPER MARINE in to see pt.
== END 2024-06-07 14:45 | disposition home or self-care (01) ==
LOC: EMR 09:08
PROVIDERS: Nurse Practitioner; EMERGENCY PHYSICIAN Emergency Medicine; FAMILY PHYSICIAN Family Medicine; OTHER PHYSICIAN Surgery
DX: R07.89 Other chest pain (principal); L76.82 Other postprocedural complications of skin and subcutaneous tissue; B36.9 Superficial mycosis, unspecified; I10 Essential (primary) hypertension; E78.00 Pure hypercholesterolemia, unspecified; I25.10 Atherosclerotic heart disease of native coronary artery without angina pectoris; I48.0 Paroxysmal atrial fibrillation
CPT/HCPCS: 99285; 96360; 96361; 71046; 71275; 80053; 84484; 85025; 93005; Q9967

== ENCOUNTER 2024-07-12 11:42 | Emergency (ER) | payer MEDICARE, OTHER, SELFPAY ==
[2024-07-12 11:45] VITALS: BP 171/94
--- NOTE | 2024-07-12 14:32 | ED.GENMED ---
History of Present Illness
General
Chief Complaint: Extremity Pain (non-traumatic)
Source: patient
Exam Limitations: none
Time Seen by Provider: 07/12/24 13:24
Nursing documentation reviewed up to this point in time: agreed with
History of Present Illness
History of Present Illness:
The patient is a pleasant 79 -year-old female presenting to the emergency department with atraumatic pain and swelling of right lower extremity for the past three days. She reports initially noticing mild pain in her right calf on and then
gradual swelling around her right ankle. Patient denies any fever, chills, chest pain, or shortness of breath. No numbness/tingling or weakness in RLE. There has been no recent trauma or inciting event.
Patient was seen an urgent care earlier today and referred to to the ED for an US to r/o a blood clot. No known personal/family hx of blood clots or clotting disorders. Patient is able to weight bear without difficulty.
Past History
Past History
ED Past Medical History: HTN and Hypercholesterolemia
ED Past Surgical History: Other
Social History
Tobacco: Non-smoker
Alcohol: None
Drug: None
Personal:
Living: with family
Employment: Other
Family History
Family History: Other
Review of Systems
Review of Systems
Allergies reviewed?: Yes
All Other Systems: ROS reviewed and negative except as documented in HPI and ROS
Phy Exam
Physical Exam
Physical Exam:
Vitals: Hypertensive, otherwise vital signs are stable
General: Patient is well appearing, no acute distress. Nontoxic appearing
Skin: Warm and dry, no rashes or lesions
Head: Normocephalic, atraumatic
Eyes: Sclera nonicteric. EOMs intact. No nystagmus.
Throat: Protecting airway
Neck: Normal ROM, no cervical spine tenderness, no meningismus
Cardiac: Regular rate and rhythm, no murmurs.
Pulm: Normal respiratory effort, no wheezes, rales, rhonchi heard on exam.
Abdomen: No abdominal tenderness.
Extremities: 1+ pitting edema around right ankle with mild tenderness of right medial calf. No overlying erythema, warmth, or ecchymosis. No red streaking. No palpable cord. Palpable right DP and PT pulse. Sensation of RLE intact with normal
capillary refill. Excellent ROM in right ankle without pain. No effusion of right knee with normal ROM.
Neuro: AAOx3. CN II-XII intact. No focal neurologic deficits.
Psychiatric: Normal affect.
Course
Orders/Labs/Results
Orders:
Orders
07/12/24 11:50
US Periph Venous LOWER Ext RT Urgent
Comment:
Reason For Exam: pain swelling, no injury
07/12/24 14:31
Acetaminophen [Tylenol] 650 mg PO NOW STA
07/12/24 15:24
Sergio Wrap Right-Treatment ONCE
Vital Signs
Initial and Last Documented VS:
Initial Vital Signs
Temp Pulse Resp BP Pulse Ox
97.5 F 87 16 171/94 96
07/12/24 11:45 07/12/24 11:45 07/12/24 11:45 07/12/24 11:45 07/12/24 11:45
Last Documented Vital Signs
Temp Pulse Resp BP Pulse Ox
97.5 F 79 18 163/93 95
07/12/24 11:45 07/12/24 15:34 07/12/24 15:34 07/12/24 15:34 07/12/24 15:34
MDM/Problems Addressed
Differential Diagnosis Includes:
Not limited to: DVT, superficial thrombophlebitis, dependent edema, cellulitis, septic arthritis, ruptured bakers cyst, etc
MDM/Problems Addressed:
76-year-old female with atraumatic right lower extremity pain and swelling. No recent trauma or associated fevers, chest pain, shortness of breath. Vitals and physical exam as above. Patient very well appearing, in no apparent distress. She has very
minimal tenderness to the right medial calf and 1+ pitting edema of right ankle. Patient has excellent range of motion in both right knee and right ankle without pain. RLE neurovascularly intact. There are no signs to suggest and infectious
component. Patient has excellent ROM without pain making a septic arthritis much less likely. An ultrasound of the RLE was obtained which fortunately shows no evidence of DVT although does show a bakers cyst. Suspect possible ruptured/leaking Bakers
cyst contributing to mild pain and swelling. Will apply sergio wrap, and recommend compression, ice, elevation, Tylenol for pain. Feel patient stable for discharge home with return precautions and PCP f/u. Patient ambulating out of emergency department
without pain.
Chronic conditions affecting care:
HTN
Acute Exacerbation and/or Progression of Chronic Illness:
Acutely hypertensive
*Radiology
Radiology exam reviewed: radiology read reviewed
*Pulse Oximetry
Patient hypoxic: no
*EKG
Interpreted by ED Provider?: NA
*Faceter Interpretation
Rate: Faceter- N/A
*Critical Care Note
Total Time (30-74mins, 75-104mins- exclusive of procedures): Not Applicable
ED Attending Note
-
Portions of this chart may have been created with voice recognition software.� Occasional wrong word or��sound alike� substitutions may have occurred due to the inherent limitations of voice recognition software.
Discharge Plan
Departure
Patient Disposition: Home (Routine Discharge)
Date of Disposition: 07/12/24
Time of Disposition: 15:24
Patient with high blood pressure during this ER visit?: Yes
Discharge Problem:
Ugalde cyst
Instructions: Ugalde's Cyst (DC), BLOOD PRESSURE
Prescriptions:
No Action
acetaminophen 325 mg Tablet
650 mg PO Q4HPRN PRN (Reason: mild pain,headache,temp >101F ) Qty: 0 0RF
aspirin [Children's Aspirin] 81 mg Tablet,Chewable
81 mg PO DAILY Qty: 0 0RF
cholecalciferol (vitamin D3) [Vitamin D3] 25 mcg (1,000 unit) Tablet
25 mcg PO DAILY Qty: 0 0RF
PreserVision AREDS 2,148 mcg-113 mg-45 mg-17.4mg Tablet
1 tab PO BID Qty: 0 0RF
atorvastatin 20 mg Tablet
20 mg PO HS Qty: 30 1RF
latanoprost 0.005 % Drops
1 drp OPHTHALMIC (EYE) DAILY
prednisolone acetate 0.12 % Drops,Suspension
1 drp OPHTHALMIC (EYE) DAILY
metoprolol succinate 100 mg tablet extended release 24 hr
50 mg PO QPM
timolol maleate 0.5 % Drops
1 drp OPHTHALMIC (EYE) DAILY
moxifloxacin 0.5 % Drops
1 drp OPHTHALMIC (EYE) DAILY
oxycodone 5 mg tablet
5 - 10 mg PO Q4HPRN PRN (Reason: moderate to severe pain) Qty: 20 0RF
nystatin 100,000 unit/gram cream
1 applic topical TID Qty: 30 0RF
Referrals:
Virginia Barajas, [Family Provider] - Follow up in 5-7 days
Activity Restrictions/Additional Instructions:
Return to the emergency department with any fevers, significant worsening in swelling/pain of right lower leg, significant redness warmth of right lower leg, chest pain or shortness of breath, or any other concerns
-As discussed�your ultrasound showed no evidence of blood clot today in the emergency department. It did however note a Ugalde's cyst of your right leg. This may be contributing to the swelling and pain in your right lower leg.
You should keep your knee compressed with Sergio wrap, ice and elevate. You can take Tylenol as needed for pain.
-Follow-up with your primary care in a few days to week for further evaluation/management to ensure that symptoms are improving. If symptoms/swelling persist and/or worsen you may need a repeat ultrasound.
Monitor your symptoms closely return to the emergency department any significant worsening/new symptoms or any signs of infection
Interventions
Interventions:
*Risk Screen - Suicide Last Done: 07/12/24 15:26
*General Assessment Last Done: 07/12/24 15:26
*Neglect/Abuse Screening Last Done: 07/12/24 15:26
*ED- Fall Risk Assessment Last Done: 07/12/24 15:26
*ED COVID-19 Vaccine History Last Done: 07/12/24 15:26
*Nursing Disposition Last Done: 07/12/24 15:35
ED-Skin Assessment Last Done: 07/12/24 15:33
ED-Peripheral Vascular Assessment Last Done: 07/12/24 15:33
ED-Musculoskeletal Assessment Last Done: 07/12/24 15:33
Discharge Date and Time
Discharge Date/Time: 07/12/24 15:40
Print Language: CAPE [place]DEAN
[2024-07-12] MEDS: TYLENOL 650 MG PO (14:48)
[2024-07-12 15:32] VITALS: BMI 33.1
[2024-07-12 15:34] VITALS: BP 163/93
== END 2024-07-12 15:40 | disposition home or self-care (01) ==
LOC: EMR 11:42
PROVIDERS: EMERGENCY PHYSICIAN Emergency Medicine; FAMILY PHYSICIAN Family Medicine
DX: M71.21 Synovial cyst of popliteal space [Baker], right knee (principal); I10 Essential (primary) hypertension; E78.00 Pure hypercholesterolemia, unspecified
CPT/HCPCS: 99284; 93971

== ENCOUNTER → 2024-08-19 12:14 | Outpatient (REF) | payer MEDICARE, OTHER, SELFPAY | LOC: HWRCS 12:14 | PROVIDERS: ATTENDING PHYSICIAN Internal Medicine Cardiovascular Disease; FAMILY PHYSICIAN Family Medicine | DX: D15.1 Benign neoplasm of heart (principal) | CPT/HCPCS: 93306 ==

== ENCOUNTER → 2024-11-30 07:57 | Outpatient (REF) | payer MEDICARE, OTHER, SELFPAY ==
[2024-11-30 09:44] LABS: Hematocrit 35.7 % (37.0-47.0); Hemoglobin 11.0 g/dL (12.0-16.0); Mean Corp Hgb Conc. 30.8 g/dL (33.0-37.0); Mean Corpuscular Volume 66.9 fL (81.0-99.0); Nucleated Red Blood Cells % 0.3 %; Platelet Count 199 10^3/uL (130-400); Red Cell Dist. Width 17.0 % (11.5-14.5)
[2024-11-30 09:57] LABS: ALT (SGPT) 15 U/L (0-35); AST (SGOT) 25 U/L (14-36); Albumin 4.1 g/dl (3.5-5.0); Alkaline Phosphatase 54 U/L (38-126); Blood Urea Nitrogen 26 mg/dl (7-17); Calcium 9.2 mg/dl (8.4-10.2); Carbon Dioxide 28 mmol/L (22-30); Chloride 107 mmol/L (98-107); Glucose 89 mg/dl (70-99); HDL Cholesterol 66 mg/dl; LDL Cholesterol, Calculated 78 mg/dl; Potassium 4.1 mmol/L (3.5-5.1); Sodium 140 mmol/L (135-145); Total Protein 6.5 g/dl (6.3-8.2); Very Low Density Lipoprotein 21 mg/dl (0-30); eGFR > 60.00
== END ==
LOC: HWLAB 07:57
PROVIDERS: ATTENDING PHYSICIAN Family Medicine
DX: E78.00 Pure hypercholesterolemia, unspecified (principal); I10 Essential (primary) hypertension; Z00.00 Encounter for general adult medical examination without abnormal findings; D56.3 Thalassemia minor
CPT/HCPCS: 36415; 80053; 80061; 85025

== ENCOUNTER 2025-01-22 10:56 | Emergency (ER) | payer MEDICARE, OTHER, SELFPAY ==
[2025-01-22 11:06] VITALS: BP 166/103; BMI 28.6
--- NOTE | 2025-01-22 11:14 | ED.GENMED ---
History of Present Illness
General
Chief Complaint: Dizziness
Time Seen by Provider: 01/22/25 11:14
History of Present Illness
History of Present Illness:
FOCUSED PAST MEDICAL HISTORY
- High blood pressure
REVIEW OF OLD RECORDS
- I reviewed records, I see no evidence of neuroimaging in the past
Note:
CHIEF COMPLAINT(S)
Dizziness
HISTORY OF PRESENT ILLNESS
The patient is an 79-year-old female who presented with dizziness. The dizziness began after she stopped her car in the parking lot while on her way to the [facility]. She did not enter the establishment and remained in her car. She reports that
the dizziness is exacerbated when her eyes are open. She has a history of macular degeneration, for which she received treatment recently, noting that exposure to sunlight aggravated her symptoms. In addition to dizziness, she experienced episodes
of vomiting. She was transported to the emergency department by ambulance.
The patients daughter reported that the patient had been experiencing more frequent dizzy spells throughout the week. No chest pain or pressure was reported. She had received a flu shot last week and noted the onset of dizziness following that. The
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
A neurologic examination, including [id number] testing, was performed, revealing that the patient can perform these tasks adequately with her eyes open.
PAST MEDICAL AND SURIGICAL HISTORY
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
- Hernia surgery
- Eye surgery
CHRONIC MEDICAL CONDITIONS SIGNIFICANTLY AFFECTING CARE
- Macular degeneration
- History of atrial fibrillation
ALLERGIES
- Allergic to Keflex
- Allergic to surgical tape
REVIEW OF SYSTEMS
- Neurological: Dizziness exacerbated by opening eyes, vomiting without nausea
PHYSICAL EXAM
General: Alert, in no acute distress.
Neurological: Alert and oriented to person, place, time, and situation; no focal neurological deficit observed. Adequate performance in coordination tasks when eyes are open.
PROBLEM LIST
Acute:
- Dizziness with associated vomiting, possible visual and vestibular involvement
Chronic:
- Macular degeneration
- History of atrial fibrillation
PLAN
1. Order CT scan of the brain to rule out acute intracranial pathology.
2. Administer antiemetic medication for nausea management.
3. Consider providing sedative medication such as Valium for symptomatic relief of dizziness.
4. Monitor and review blood work results.
5. Determine the appropriateness of starting blood thinning medication given the history of atrial fibrillation and current lack of anticoagulation.
DIFFERENTIAL DIAGNOSIS
The Differential Diagnosis includes, in no particular order and is not limited to:
1. Vestibular dysfunction
2. Acute labyrinthitis
3. Benign paroxysmal positional vertigo (BPPV)
4. Transient ischemic attack (TIA)
5. Cerebrovascular accident (CVA)
6. Dehydration or electrolyte imbalance
7. Medication side effect
8. Middle ear infection
9. Cardiovascular event
10. Neurological condition related to past medical and surgical history
RADIOLOGY
- CT head obtained was negative
EKG
- Sinus rhythm, first-degree AV block, ventricular rate 110
LABS
- White count 8.9, hemoglobin 11.2 which is near baseline, chemistries unremarkable
UPDATE
-SUMMARY OF ENCOUNTER
The patient, an 79-year-old female, presented to the emergency department with dizziness that began after stopping her car in a parking lot. She experienced dizziness exacerbated by opening her eyes and episodes of vomiting. She has a history of
macular degeneration, which is aggravated by sunlight exposure. A recent flu shot was noted to coincide with the onset of her dizziness. A CT scan of the brain was performed and came back normal, ruling out any acute intracranial pathology. The
patient was treated with diphenhydramine and metoclopramide in the emergency department to manage her nausea and vertigo symptoms. Her condition improved slightly but was still considered debilitating.
DISPOSITION
Admit
ASSESSMENT
The patient presented with dizziness, likely related to a vestibular dysfunction or visual component, given her history of macular degeneration. Other potential differential diagnoses, such as transient ischemic attack (TIA) or vestibular
dysfunction, need further evaluation due to the patients symptoms and past medical history.
EMERGENCY TREATMENTS ADMINISTERED
Diphenhydramine (Benadryl) and metoclopramide (Reglan) were administered for nausea and dizziness management.
MANAGEMENT OF THE PATIENTS CARE WAS DISCUSSED WITH
The emergency physician planned to discuss the patients condition with the hospitalist for further evaluation and potential admission, given the patients debilitating symptoms.
PLAN
Admit the patient for further evaluation to assess for any vestibular issues, neurological conditions, or cardiovascular events, considering her macular degeneration and history of atrial fibrillation.
INDEPENDENT REVIEW OF LABS AND INTERPRETATION OF TESTS
My independent review of the CT scan of the brain is normal, with no evidence of tumor or intracranial bleeding.
MEDICATION RECONCILIATION
Diphenhydramine and metoclopramide were administered in the emergency department. Some improvement on reassessment.
MEDICAL DECISION MAKING
-Complexity of Data Reviewed: Chronic conditions affecting care include macular degeneration and a history of atrial fibrillation. Differential diagnosis includes vestibular dysfunction, acute labyrinthitis, benign paroxysmal positional vertigo
(BPPV), transient ischemic attack (TIA), cerebrovascular accident (CVA), dehydration or electrolyte imbalance, medication side effects, middle ear infection, cardiovascular event, and neurological condition related to past medical and surgical
history.
-Data:
Category 1
My independent interpretation of the CT scan of the brain shows no signs of acute intracranial pathology.
-Risk:
Given the patients comorbidities and the nature of symptoms, admission for further observation and evaluation is warranted.
Past History
Past History
ED Past Medical History: HTN and Hypercholesterolemia
ED Past Surgical History: Other
Social History
Tobacco: Non-smoker
Alcohol: None
Drug: None
Personal:
Living: with family
Employment: Other
Family History
Family History: Other
Phy Exam
Physical Exam
Physical Exam:
See HPI
Course
Orders/Labs/Results
Orders:
Orders
01/22/25 11:09
Electrocardiogram (*1) Urgent
Reason for Study: Vertigo / Dizzy
01/22/25 11:10
EKG- Treatment ONCE
01/22/25 11:11
Complete Blood Count/With Diff Urgent
Comprehensive Metabolic Panel Urgent
01/22/25 11:36
CT Head W/o Iv Contrast Urgent
Comment:
Reason For Exam: dizziness
0.9% Sodium Chloride 500 ml [Nss] 500 ml IV BOLUS
Diphenhydramine [Benadryl] 25 mg IV NOW STA
Metoclopramide [Reglan] 10 mg IV NOW STA
Abnormal Lab Results
01/22/25
11:11
RBC 5.44 H 10^6/uL
(4.20-5.40)
Hgb 11.2 L g/dL
(12.0-16.0)
Hct 35.3 L %
(37.0-47.0)
MCV 64.9 L fL
(81.0-99.0)
MCH 20.6 L pg
(27.0-31.0)
MCHC 31.7 L g/dL
(33.0-37.0)
RDW 17.3 H %
(11.5-14.5)
Absolute Monos (auto) 0.7 H 10^3/uL
(0.1-0.6)
Eosinophils % 7.5 H %
(0-6)
BUN 18 H mg/dl
(7-17)
Glucose 156 H mg/dl
(70-99)
01/22/25 11:11
01/22/25 11:11
Vital Signs
Initial and Last Documented VS:
Initial Vital Signs
Temp Pulse Resp BP Pulse Ox
36.2 C 113 18 166/103 95
01/22/25 11:06 01/22/25 11:06 01/22/25 11:06 01/22/25 11:06 01/22/25 11:06
Last Documented Vital Signs
Temp Pulse Resp BP Pulse Ox
36.2 C 78 19 153/80 95
01/22/25 11:06 01/22/25 13:20 01/22/25 13:20 01/22/25 13:20 01/22/25 13:20
*Pulse Oximetry
SaO2: 94
Oxygen Mode of Delivery: Room air
Patient hypoxic: no
*Critical Care Note
Total Time (30-74mins, 75-104mins- exclusive of procedures): Not Applicable
ED Attending Note
-
Portions of this chart may have been created with voice recognition software.� Occasional wrong word or��sound alike� substitutions may have occurred due to the inherent limitations of voice recognition software.
Discharge Plan
Departure
Patient Disposition: Home (Routine Discharge)
Date of Disposition: 01/22/25
Time of Disposition: 14:05
Patient with high blood pressure during this ER visit?: Yes
Discharge Problem:
Dizziness
Prescriptions:
No Action
acetaminophen 325 mg Tablet
650 mg PO Q4HPRN PRN (Reason: mild pain,headache,temp >101F ) Qty: 0 0RF
aspirin [Children's Aspirin] 81 mg Tablet,Chewable
81 mg PO DAILY Qty: 0 0RF
cholecalciferol (vitamin D3) [Vitamin D3] 25 mcg (1,000 unit) Tablet
25 mcg PO DAILY Qty: 0 0RF
PreserVision AREDS 2,148 mcg-113 mg-45 mg-17.4mg Tablet
1 tab PO BID Qty: 0 0RF
atorvastatin 20 mg Tablet
20 mg PO HS Qty: 30 1RF
latanoprost 0.005 % Drops
1 drp OPHTHALMIC (EYE) DAILY
prednisolone acetate 0.12 % Drops,Suspension
1 drp OPHTHALMIC (EYE) DAILY
metoprolol succinate 100 mg tablet extended release 24 hr
50 mg PO QPM
timolol maleate 0.5 % Drops
1 drp OPHTHALMIC (EYE) DAILY
moxifloxacin 0.5 % Drops
1 drp OPHTHALMIC (EYE) DAILY
oxycodone 5 mg tablet
5 - 10 mg PO Q4HPRN PRN (Reason: moderate to severe pain) Qty: 20 0RF
nystatin 100,000 unit/gram cream
1 applic topical TID Qty: 30 0RF
Referrals:
Virginia Barajas DO [Family Provider, Family Practice]
Interventions
Interventions:
*Risk Screen - Suicide Last Done: 01/22/25 11:08
*General Assessment Last Done: 01/22/25 11:12
*Neglect/Abuse Screening Last Done: 01/22/25 11:08
*ED- Fall Risk Assessment Last Done: 01/22/25 11:08
*ED COVID-19 Vaccine History Last Done: 01/22/25 11:08
*ED Influenza Vaccine History Last Done: 01/22/25 11:08
ED- Neurological Assessment Last Done: 01/22/25 11:14
Discharge Date and Time
Print Language: MEXICAN
[2025-01-22 11:38] LABS: ALT (SGPT) 22 U/L (0-35); AST (SGOT) 32 U/L (14-36); Albumin 4.3 g/dl (3.5-5.0); Alkaline Phosphatase 68 U/L (38-126); Blood Urea Nitrogen 18 mg/dl (7-17); Calcium 9.4 mg/dl (8.4-10.2); Carbon Dioxide 26 mmol/L (22-30); Chloride 104 mmol/L (98-107); Estimated Creatinine Clearance 76 ml/min; Glucose 156 mg/dl (70-99); Potassium 4.3 mmol/L (3.5-5.1); Sodium 135 mmol/L (135-145); Total Protein 7.0 g/dl (6.3-8.2); eGFR > 60.00
[2025-01-22] MEDS: REGLAN 10 MG IV (11:52)
[2025-01-22] MEDS: BENADRYL 25 MG IV (11:52)
[2025-01-22 11:59] LABS: Hematocrit 35.3 % (37.0-47.0); Hemoglobin 11.2 g/dL (12.0-16.0); Mean Corp Hgb Conc. 31.7 g/dL (33.0-37.0); Mean Corpuscular Volume 64.9 fL (81.0-99.0); Nucleated Red Blood Cells % 0.3 %; Red Cell Dist. Width 17.3 % (11.5-14.5)
[2025-01-22 12:00] VITALS: BP 154/92
[2025-01-22] MEDS: NSS 500 IV (12:13)
[2025-01-22 12:15] LABS: Platelet Count 214 10^3/uL (130-400)
[2025-01-22 13:20] VITALS: BP 153/80
[2025-01-22 14:00] VITALS: BP 148/75
[2025-01-22 15:00] VITALS: BP 138/77
[2025-01-22] MEDS: ANTIVERT 25 MG PO (15:08)
== END 2025-01-22 16:03 | disposition home or self-care (01) ==
LOC: EMR 10:56
PROVIDERS: EMERGENCY PHYSICIAN Emergency Medicine; FAMILY PHYSICIAN Family Medicine
DX: R42 Dizziness and giddiness (principal); E78.00 Pure hypercholesterolemia, unspecified; I10 Essential (primary) hypertension; I48.91 Unspecified atrial fibrillation; Z88.1 Allergy status to other antibiotic agents
CPT/HCPCS: 99284; 96374; 96375; 96361; 70450; 80053; 85025; 93005

== ENCOUNTER → 2025-03-05 09:35 | Outpatient (REF) | payer MEDICARE, OTHER, SELFPAY | LOC: HWWDC 09:35 | PROVIDERS: ATTENDING PHYSICIAN Family Medicine | DX: Z12.31 Encounter for screening mammogram for malignant neoplasm of breast (principal) | CPT/HCPCS: 77063; 77067 ==